=== PATIENT | male | born 1950 | race Caucasian/White ===

== ENCOUNTER 2018-02-21 17:00 | Emergency (ER) | payer BC, OTHER ==
[2018-02-21 17:11] VITALS: BP 114/40; PULSE 63; TEMP 97.2; BMI 27.0
--- NOTE | 2018-02-21 17:14 | PDOC ---
Rapid Medical Evaluation Chief Complaint: Cold Symptoms Time Seen by Provider: 02/21/18 17:13 Medical Evaluation: Allergies Allergy/AdvReac Type Severity Reaction Status Date / Time No Known Allergies Allergy Verified 02/21/18 17:05 Vital Signs Temp Pulse Resp BP Pulse Ox 97.2 F L 63 16 114/40 97 02/21/18 17:06 02/21/18 17:06 02/21/18 17:06 02/21/18 17:06 02/21/18 17:06 02/21/18 17:13 The patient presents with a chief complaint of: cold symptoms I have performed a brief in-person evaluation of this patient. Pertinent physical exam findings: vss, I have ordered the following: provider to determine The patient will proceed to the ED for further evaluation. Discharge Disposition - Referrals Referrals: Christoph Recio MD [Primary Care Provider] - - Patient Instructions - Post Discharge Activity
--- NOTE | 2018-02-21 17:51 | PDOC ---
History of Present Illness - General Chief Complaint: Cold Symptoms Stated Complaint: COLD CONGESTION, BREATHING PROBLEMS Time Seen by Provider: 02/21/18 17:13 History Source: Patient Exam Limitations: No Limitations - History of Present Illness Initial Comments: 02/21/18 18:33 This is a 67-year-old male with past medical history of hypertension CHF status post AICD presents with 10 days of upper respiratory type symptoms. Reports maxillary sinus tenderness, moist minimally productive cough, sore throat and fevers for the last 10 days. Patient was evaluated in urgent care clinic at 28 taking Augmentin and Robitussin with codeine for his symptoms. Patient denies any chest pain, shortness of breath, decreasing exercise tolerance, abdominal bloating, swelling, inability to walk up inclines or stairs. Past History - Past Medical History Allergies/Adverse Reactions: Allergies Allergy/AdvReac Type Severity Reaction Status Date / Time No Known Allergies Allergy Verified 02/21/18 17:05 Home Medications: Ambulatory Orders Apixaban [Eliquis] 5 mg PO BID 05/19/15 Aspirin [Ecotrin] 81 mg PO DAILY 05/19/15 Carvedilol 25 mg PO BID 05/19/15 Finasteride 5 mg PO DAILY 05/19/15 Olmesartan/Hydrochlorothiazide [Benicar Hct 40-12.5 mg Tablet] 1 each PO DAILY 05/19/15 Simvastatin [Zocor -] 40 mg PO HS 05/19/15 Tamsulosin HCl 0.4 mg PO DAILY 05/19/15 Allopurinol 300 mg PO DAILY 08/28/15 Cholecalciferol (Vitamin D3) [Vitamin D] 5,000 unit PO DAILY 08/28/15 Sildenafil Citrate [Viagra] 100 mg PO ASDIR 08/28/15 Oxycodone HCl/Acetaminophen [Percocet 5-325 mg Tablet] 1 tab PO Q4H PRN #20 tablet MDD 6 07/22/16 Anemia: No Asthma: No Cancer: No Cardiac Disorders: Yes (CAD with stent, afib, pace maker, defib) CVA: No COPD: No CHF: No Dementia: No Diabetes: No GI Disorders: No Disorders: No HTN: Yes Hypercholesterolemia: Yes Liver Disease: No Seizures: No Thyroid Disease: No - Surgical History Abdominal Surgery: Yes (Right Inguinal Hernia Repair) Appendectomy: No Cardiac Surgery: Yes (CARDIAC STENTS) Cholecystectomy: No Lung Surgery: No Neurologic Surgery: No Orthopedic Surgery: Yes (Left Hip Replacement 2014) - Immunization History Immunization Up to Date: Yes - Suicide/Smoking/Psychosocial Hx Smoking Status: No Smoking History: Never smoked Number of Cigarettes Smoked Daily: 0 Hx Alcohol Use: No Drug/Substance Use Hx: No Substance Use Type: None Hx Substance Use Treatment: No Respiratory Specific PMHX - Complaint Specific PMHX Pneumonia: No Review of Systems - Review of Systems Able to Perform ROS?: Yes Is the patient limited Irish proficient: No Constitutional: No: Symptoms Reported HEENTM: Yes: See HPI Respiratory: Yes: See HPI Cardiac (ROS): No: Symptoms Reported ABD/GI: No: Symptoms Reported : No: Symptoms Reported Musculoskeletal: No: Symptoms Reported Integumentary: No: Symptoms Reported Neurological: No: Symptoms reported Endocrine: No: Symptoms Reported Hematologic/Lymphatic: No: Symptoms Reported *Physical Exam - Vital Signs Last Vital Signs Temp Pulse Resp BP Pulse Ox 97.2 F L 63 16 114/40 97 02/21/18 17:06 02/21/18 17:06 02/21/18 17:06 02/21/18 17:06 02/21/18 17:06 - Physical Exam General Appearance: Yes: Appropriately Dressed. No: Apparent Distress HEENT: positive: TMs Normal, Pharynx Normal, Nasal Congestion, Rhinorrhea. negative: Pharyngeal Erythema, Tonsillar Exudate, Tonsillar Erythema, Sinus Tenderness Neck: positive: Trachea midline, Supple Respiratory/Chest: positive: Lungs Clear, Normal Breath Sounds. negative: Respiratory Distress, Accessory Muscle Use Cardiovascular: positive: Regular Rhythm, Regular Rate, S1, S2. negative: Edema , Murmur Gastrointestinal/Abdominal: positive: Normal Bowel Sounds, Soft. negative: Tender Musculoskeletal: positive: Normal Inspection. negative: CVA Tenderness Extremity: positive: Normal Inspection Integumentary: positive: Normal Color, Dry, Warm Neurologic: positive: Alert, Normal Response, Motor Strength 5/5 Medical Decision Making - Medical Decision Making 02/21/18 18:30 A/P: 67-year-old male past medical history of hypertension, CHF status post AICD with 10 days of upper respiratory symptoms TMs clear. External auditory canals clear and free of erythema or exudates bilaterally. Palpable sinus tenderness to the maxillary sinuses. His congestion noted Oropharynx clear without erythema or exudate. Respirations even and unlabored. Lungs clear to auscultation bilaterally. RRR. S1 and S2 present. No murmur, rub or gallop Patient with upper respiratory infection versus bronchitis Patient has previously been seen in urgent care and was placed on Augmentin 3 days ago. Patient states minimal relief of symptoms therefore I will continue patient on his current regimen of amoxicillin and Robitussin with codeine. Patient's eye surgery secured an appointment with his PMD on 03/03. Patient instructed to follow up his primary doctor attack appointment *DC/Admit/Observation/Transfer Diagnosis at time of Disposition: Bronchitis - Discharge Dispostion Disposition: HOME Condition at time of disposition: Stable Admit: No - Referrals Referrals: Christoph Recio MD [Primary Care Provider] - - Patient Instructions Printed Discharge Instructions: DI for Acute Bronchitis Additional Instructions: Steamy showers/seem to face break up mucus Avoid contact with others until cough resolves Lots of handwashing and good hygiene Continue [id number] medications for symptomatic relief Tylenol or Motrin for fever and pain Continue Augmentin as previously prescribed Followup with private physician in one to 2 days as needed Return to emergency department for worsened symptoms, fevers, dehydration - Post Discharge Activity Forms/Work/School Notes: Back to Work
== END 2018-02-21 17:59 | disposition home or self-care (01) ==
LOC: JERFT 17:00
DX: J20.9 Acute bronchitis, unspecified (principal); I25.10 Atherosclerotic heart disease of native coronary artery without angina pectoris; I11.0 Hypertensive heart disease with heart failure; Z95.5 Presence of coronary angioplasty implant and graft; Z95.810 Presence of automatic (implantable) cardiac defibrillator; Z96.642 Presence of left artificial hip joint; I48.91 Unspecified atrial fibrillation; Z79.01 Long term (current) use of anticoagulants; Z79.82 Long term (current) use of aspirin
CPT/HCPCS: 99281-25

== ENCOUNTER 2019-01-05 07:56 | Inpatient (IN) | payer OTHER, BC ==
--- NOTE | 2019-01-05 08:23 | PDOC ---
History of Present Illness - General History Source: Patient, Old Records Exam Limitations: No Limitations - History of Present Illness Initial Comments: HPI: 68 y/o male presenting to [facility] ER complaining of progressive SOB and cough over the past several days. Pt states he is coughing up clear phlegm. Denies gree, yellow, or reddish sputum production. Coughing is worse when lying flat at night. Endorses waking up SOB throughout the night. SOB is also worse when walking up stairs. He is a h/o CHF with AICD placement. Denies feeling a defibrillator shock. 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 Last visit was three weeks ago. Reports normal exam. PCP: Dr. Recio Medical Hx: - Hypertension - CHF s/p AICD - HLD <Tien Justice - Last Filed: 01/05/19 11:54> <Debbie Avalos - Last Filed: 01/05/19 12:26> - General Chief Complaint: Shortness of Breath Stated Complaint: DIFF BREATHING Time Seen by Provider: 01/05/19 08:23 Past History - Past Medical History Anemia: No Asthma: No Cancer: No Cardiac Disorders: Yes (CAD with stent, afib, pace maker, defib) CVA: No COPD: No CHF: No Dementia: No Diabetes: No GI Disorders: No Disorders: No HTN: Yes Hypercholesterolemia: Yes Liver Disease: No Seizures: No Thyroid Disease: No - Surgical History Abdominal Surgery: Yes (Right Inguinal Hernia Repair) Appendectomy: No Cardiac Surgery: Yes (CARDIAC STENTS) Cholecystectomy: No Lung Surgery: No Neurologic Surgery: No Orthopedic Surgery: Yes (Left Hip Replacement 2013) - Immunization History Immunization Up to Date: Yes - Suicide/Smoking/Psychosocial Hx Smoking Status: No Smoking History: Never smoked Have you smoked in the past 12 months: No Number of Cigarettes Smoked Daily: 0 Information on smoking cessation initiated: No Hx Alcohol Use: No Drug/Substance Use Hx: No Substance Use Type: None Hx Substance Use Treatment: No <Tien Justice - Last Filed: 01/05/19 11:54> <Debbie Avalos - Last Filed: 01/05/19 12:26> - Past Medical History Allergies/Adverse Reactions: Allergies Allergy/AdvReac Type Severity Reaction Status Date / Time No Known Allergies Allergy Verified 01/05/19 08:13 Home Medications: Ambulatory Orders Apixaban [Eliquis] 5 mg PO BID 05/19/15 Aspirin [Ecotrin] 81 mg PO DAILY 05/19/15 Carvedilol 25 mg PO BID 05/19/15 Finasteride 5 mg PO DAILY 05/19/15 Simvastatin [Zocor -] 40 mg PO HS 05/19/15 Allopurinol 400 mg PO DAILY 08/28/15 Furosemide [Lasix -] 40 mg PO DAILY 01/05/19 Spironolactone [Aldactone] 25 mg PO DAILY 01/05/19 Review of Systems - Review of Systems Able to Perform ROS?: Yes Comments:: In addition to that documented in the HPI above, the additional ROS was obtained : Constitutional: Denies fevers or chills Eyes: Denies vision changes ENMT: Denies sore throat CV: Denies chest pain Resp: Per HPI GI: Denies vomiting or diarrhea : Denies painful urination MSK: Denies recent trauma Skin: Denies new rashes Neuro: Denies new numbness or tingling or weakness Endocrine: Denies polyuria Heme: Denies bleeding or bruising <Tien Justice - Last Filed: 01/05/19 11:54> *Physical Exam - Vital Signs Last Vital Signs Temp Pulse Resp BP Pulse Ox 98.2 F 93 H 17 138/81 94 L 01/05/19 08:13 01/05/19 08:13 01/05/19 08:13 01/05/19 08:13 01/05/19 08:13 - Physical Exam Comments: Constitutional: Well-developed, well-nourished, non-toxic adult male in no acute distress or obvious discomfort. Found sitting upright on edge of hospital bed. Alert and oriented x4. Answered all questions appropriately and completely. Speech was non-labored, non-pressured. Head: Normocephalic. No obvious external signs of trauma. Eyes: Sclerae white. Conjunctiva moist and not injected. Ears: Hearing grossly intact. Nose: No nasal discharge. Throat: Oral cavity and pharynx normal. No inflammation, swelling, exudate, or lesions. Neck: Supple, trachea is midline. Cardiovascular/Chest: Tachycardic rate and regular rhythm. No murmur, rubs, clicks, or gallops. Peripheral pulses: radial pulses full. Hardware in left upper anterior chest wall. Respiratory: Breathing unlabored. Equal chest rise and fall. Clear to auscultation bilaterally. No stridor, no wheezing, no rhonchi. Gastrointestinal: abdomen is soft, non-tender, non-distended. Neuro: Alert and oriented. Moving all four extremities spontaneously. Skin: Warm, dry, and intact. Psych: Affect: appropriate. Mood: normal. <Tien Justice - Last Filed: 01/05/19 11:54> - Vital Signs Last Vital Signs Temp Pulse Resp BP Pulse Ox 98.2 F 93 H 17 138/81 94 L 01/05/19 08:13 01/05/19 08:13 01/05/19 08:13 01/05/19 08:13 01/05/19 08:13 <Debbie Avalos - Last Filed: 01/05/19 12:26> Moderate Sedation - Procedure Monitoring Vital Signs: Procedure Monitoring Vital Signs Temperature 98.2 F 01/05/19 08:13 Pulse Rate 93 H 01/05/19 08:13 Respiratory Rate 17 01/05/19 08:13 Blood Pressure 138/81 01/05/19 08:13 O2 Sat by Pulse Oximetry (%) 94 L 01/05/19 08:13 <Tien Justice - Last Filed: 01/05/19 11:54> - Procedure Monitoring Vital Signs: Procedure Monitoring Vital Signs Temperature 98.2 F 01/05/19 08:13 Pulse Rate 93 H 01/05/19 08:13 Respiratory Rate 17 01/05/19 08:13 Blood Pressure 138/81 01/05/19 08:13 O2 Sat by Pulse Oximetry (%) 94 L 01/05/19 08:13 <Debbie Avalos - Last Filed: 01/05/19 12:26> ED Treatment Course - LABORATORY CBC & Chemistry Diagram: 01/05/19 10:30 01/05/19 10:30 <Tien Justice - Last Filed: 01/05/19 11:54> - LABORATORY CBC & Chemistry Diagram: 01/05/19 10:30 01/05/19 10:30 - ADDITIONAL ORDERS Additional order review: Laboratory Results 01/05/19 10:30 Sodium 139 Potassium 3.5 Chloride 102 Carbon Dioxide 30 Anion Gap 7 L BUN 23 H Creatinine 1.2 Creat Clearance w eGFR 59.86 Random Glucose 105 Calcium 8.1 L Troponin I 0.06 H B-Natriuretic Peptide 5640.4 H 01/05/19 10:30 RBC 4.38 MCV 93.9 MCHC 34.1 RDW 15.5 MPV 9.4 Neutrophils % 79.6 Lymphocytes % 5.8 L D Monocytes % 13.5 H Eosinophils % 0.6 Basophils % 0.5 <Debbie Avalos - Last Filed: 01/05/19 12:26> *DC/Admit/Observation/Transfer - Discharge Dispostion Decision to Admit order: Yes <Tien Justice - Last Filed: 01/05/19 11:54> - Discharge Dispostion Decision to Admit order: Yes Decision to Admit order Date/Time: 01/05/19 12:26 <Debbie Avalos - Last Filed: 01/05/19 12:26> Diagnosis at time of Disposition: NSTEMI (non-ST elevated myocardial infarction), Shortness of breath, Elevated troponin - Discharge Dispostion Condition at time of disposition: Stable - Referrals Referrals: Christoph Recio MD [Primary Care Provider] - - Patient Instructions - Post Discharge Activity
--- NOTE | 2019-01-05 10:21 | PDOC ---
Attending Attestation - Resident Resident Name: Tien - ED Attending Attestation I have performed the following: I have examined & evaluated the patient, The case was reviewed & discussed with the resident, I agree w/resident's findings & plan - HPI HPI: 01/05/19 12:26 68 YOM with h/o AF on Eliquis, CHF(LV systolic dysfunction with ef=37%), CAD s/ p PCI stents, hypertension, dyslipidemia,BPH presenting with dyspnea with mild exertion and now at rest, associated with mildly productive cough x several days.. 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 Last eval ~3 weeks ago, normal visit; at that time he was mildly SOB, which he attributed to viral illness at the time.. Last echo ~ several months ago, unchanged per his report - Physicial Exam PE: 01/05/19 10:58 NAD, thin appearing elderly gentleman, PERRL, EOMI, nl conjunctiva, anicteric; neck supple. lungs clear, RRR, +left chest wall PPM. abdomen soft nontender. MUKHERJEE x4, no focal neuro deficits. No peripheral edema. normal color for ethnicity , WWP. no calf tenderness - Medical Decision Making 01/05/19 10:59 See HPI for details DDx SOB: ACS, arrhythmia, angina, PE, CHF, pulmonary edema, pleurisy, pneumonia , viral syndrome. effusion. anemia, electrolyte/metabolic derangements. Considered but clinically doubt based on HPI and PE: PE Vital signs reviewed, wnl. heart rate normal, SpO2 borderline 94% on RA, but no distress. Prior notes reviewed, including admissions, discharges and consultations. prior echo with poor EF <20%, dilated LV, severe global hypokinesis; normal RV size, mildly elevated pressures. laboratory results and imaging reviewed, basic labs and lytes wnl CXR_clear, PPM in place Cardiac panel +troponin 0.06, priors were all neg; BNP elevated ~5000, but lower than prior. with unremarkable CXR, so doubt CHF exac/pulmononary edema EKG V-paced pattern, no interval abnormalities, wide QRS, LBBB appearance 2/2 PPM, ST and T wave segments and morphology normal. Nonspecific T wave abnormalities - some limitation due to artifact. ED course: ASA. most likely NSTEMI with significant cardiac history, prior stents and CHF with systolic dysfunction that increases MACE risk and possibility of unstable angina. Dr Capellan inpatient consult. admit for NSTEMI, serial trop/EKG and monitoring tech, with atypical anginal sx. pt made aware of impression and plan and management. 01/05/19 12:26 Heart Score/ECG Review - ECG Impressions Normal ECG: No Comment:: 01/05/19 11:02 EKG V-paced pattern, no interval abnormalities, wide QRS, LBBB appearance 2/2 PPM, ST and T wave segments and morphology normal. Nonspecific T wave abnormalities - some limitation due to artifact.
[2019-01-05 11:03] LABS: BASO % 0.5 % (0-2.0); EOS % 0.6 % (0-4.5); HEMATOCRIT 41.1 % (35.4-49); LYMPH % 5.8 % (8-40); MCHC 34.1 g/dl (32.0-35.9); MEAN CELL VOLUME 93.9 fl (80-96); MEAN PLT VOLUME 9.4 fl (7.5-11.1); MONO % 13.5 % (3.8-10.2); NEUT % 79.6 % (42.8-82.8); PLATELET COUNT 92 K/MM3 (134-434); RBC 4.38 M/mm3 (4.00-5.60); RDW 15.5 % (11.9-15.9); WHITE BLOOD COUNT 3.8 K/mm3 (4.0-10.0)
[2019-01-05 11:14] LABS: ANION GAP 7 MMOL/L (8-16); BLOOD UREA NITROGEN 23 mg/dL (7-18); CALCIUM 8.1 mg/dL (8.5-10.1); CHLORIDE 102 mmol/L (98-107); CO2 30 mmol/L (21-32); CREATININE 1.2 mg/dL (0.55-1.3); GLUCOSE,RANDOM 105 mg/dL (74-106); N-TERMINAL BNP 5640.4 pg/ml (5-125); POTASSIUM 3.5 mmol/L (3.5-5.1); SODIUM 139 mmol/L (136-145)
[2019-01-05] MEDS ORDERED: ASPIRIN 81 MG CHEWABLE TABLETS PO ONE (11:47)
[2019-01-05] MEDS ORDERED: ASPIRIN 81 MG CHEWABLE TABLETS ONE (11:52)
--- NOTE | 2019-01-05 13:10 | PN ---
Teaching Attending Note Name of Resident: Anselmo Burgess ATTENDING PHYSICIAN STATEMENT I saw and evaluated the patient. I reviewed the resident's note and discussed the case with the resident. I agree with the resident's findings and plan as documented with exceptions below. SUBJECTIVE: 68 yom with PMHx of CAD s/p PCI, LV systolic dysfunction (Last EF 15-20% in 2014 ), s/p PPM/AICD (3-4 years ago), Persistent Atrial fibrillation on NOAC, HTN, HLD comes with 3 weeks of progressive exertional dyspnea and orthopnea. He reports URI like illness 3 weeks ago, when symptoms started, was seen by Dr. Nguyen then, attributed to his viral illness, reportedly negative w/u in the office. However, has been having progressive shortness of breath and fatigue, with minimal activity or fewer flights of stairs. So came to ED today. Positive for cough with yellowish sputum. Denies any chest pain or pressure, palpitations, dizziness, fevers, chills, ICD shock. Has had exertional dyspnea for years but has been worse for last 3 weeks. Works in elevators/crowded places, unsure of sick contact. Unsure when had his last stress test or 2D echo. 12 point ROS done, neg except above. OBJECTIVE: Vital Signs Period Temp Pulse Resp BP Sys/[place] Pulse Ox Last 24 Hr 98.2 F 93 17 138/81 94 Intake & Output 01/02/19 01/03/19 01/04/19 01/05/19 23:59 23:59 23:59 23:59 Weight 204 lb GENERAL: Awake, alert, and fully oriented, in no acute distress. HEAD: Normal with no signs of trauma. EYES: Pupils equal, round and reactive to light, extraocular movements intact, sclera anicteric, conjunctiva clear. No lid lag. EARS, NOSE, THROAT: Ears normal, nares patent, oropharynx clear without exudates. Moist mucous membranes. NECK: Soft, supple, no JVD visualized LUNGS: Breath sounds equal, clear to auscultation bilaterally. No wheezes, and no crackles. No accessory muscle use. HEART: S1S2 regular, tachycardic ABDOMEN: Soft, nontender, not distended, normoactive bowel sounds, no guarding, no rebound, no masses. No hepatomegaly or splenomegaly appreciated. MUSCULOSKELETAL: Normal range of motion at all joints. No bony deformities or tenderness. No CVA tenderness. UPPER EXTREMITIES: 2+ pulses, warm, well-perfused. No cyanosis. No clubbing. No peripheral edema. LOWER EXTREMITIES: 2+ pulses, warm, well-perfused. No calf tenderness. No peripheral edema. Varicosities NEUROLOGICAL: AAOx3, power 5/5, sensation intact and symmetric to light touch, facial symmetry, cranial nerves II-XII grossly intact PSYCHIATRIC: Cooperative. Good eye contact. Appropriate mood and affect. SKIN: Warm, dry, normal turgor, no rashes or lesions noted, normal capillary refill. Home Medications Medication Instructions Recorded Apixaban [Eliquis] 5 mg PO BID 05/19/15 Aspirin [Ecotrin] 81 mg PO DAILY 05/19/15 Carvedilol 25 mg PO BID 05/19/15 Finasteride 5 mg PO DAILY 05/19/15 Simvastatin [Zocor -] 40 mg PO HS 05/19/15 Allopurinol 400 mg PO DAILY 08/28/15 Furosemide [Lasix -] 20 mg PO DAILY 01/05/19 Spironolactone [Aldactone] 25 mg PO DAILY 01/05/19 Laboratory Results - last 24 hr 01/05/19 01/05/19 01/05/19 10:30 10:30 12:40 WBC 3.8 L RBC 4.38 Hgb 14.0 Hct 41.1 MCV 93.9 MCH 32.0 MCHC 34.1 RDW 15.5 Plt Count 92 L MPV 9.4 Absolute Neuts (auto) 3.0 Neutrophils % 79.6 Lymphocytes % 5.8 L D Monocytes % 13.5 H Eosinophils % 0.6 Basophils % 0.5 Nucleated RBC % 0 Sodium 139 Potassium 3.5 Chloride 102 Carbon Dioxide 30 Anion Gap 7 L BUN 23 H Creatinine 1.2 Creat Clearance w eGFR 59.86 Random Glucose 105 Calcium 8.1 L Troponin I 0.06 H B-Natriuretic Peptide 5640.4 H Influenza A (Rapid) Negative Influenza B (Rapid) Negative CXR image and results reviewed EKG Vpacing, HR 100s ASSESSMENT AND PLAN: 68 yom with PMHx of CAD s/p PCI, LV systolic dysfunction (Last EF 15-20% in 2014 ), s/p PPM/AICD (3-4 years ago), Persistent Atrial fibrillation on NOAC, HTN, HLD comes with 3 weeks of progressive exertional dyspnea and orthopnea. -Exertional dyspnea/orthopnea, from ?recent URI illness with bronchitis, r/o arrhythmia/tachycardia vs anginal equivalent symptoms,clinical presentation not convincing for CHF exacerbation -Elevated troponin, demand type II NSTEMi vs ACS -Severe LV systolic dysfunction (Last EF 15-20% in 2014) -CAD s/p PCI -s/p PPM/AICD -CKD stage II-III -persistent atrial fibrillation on NOAC -HTN -HLD Plan: Cardiology consult Dr. Nguyen, retrieve prior records. Telemetry, cycle troponin. Exertional symptoms. Stress test/2Decho per cardiology pending troponin trend and recent records. Continue ASA/coreg/statin/aldactone/eliquis. PPM/ICD interrogation to assess for tachycardia/arrhythmia Continue home dose of lasix. Influenza swab neg. Supportive care. DVTPPX heparin Code status: Full code (discussed with patient, wants his Silvia to be his surrogate decision maker) Dispo pending clinical course, cardiology input and need for additional work up. Total admit time 55 min.
[2019-01-05] MEDS ORDERED: FUROSEMIDE 20 MG TABLET (FP) PO SCH (13:30)
--- NOTE | 2019-01-05 13:36 | HP ---
CHIEF COMPLAINT: sob PCP: HISTORY OF PRESENT ILLNESS: 68 y/o male significant pmh of chf, afib, htn, hld, afib with icd came to hospital with a cc of increase in sob. Pt states that he had flu like symptoms 3 week ago and since then his sob is getting worse. Now he is getting sob in doing daily activities. Still sleep with 2 pillows. Denies sob on rest. Denies chest pain, pressure, palpitations, shock from his icd. Denies fever and chills. Denies h/o copd. Denies lightheadedness, dizziness,. Denies nausea, vomiting, and change micturation. Denies swelling in legs and change in weight. Pt also states that he had seen that dale 3 week ago and was started on entresto. Also states he got echo done around 3 months ago. pt also states that he also got his icd interogated last month and it was normal. IN ER ekg was done which shows ventricular pace rhythm pt was given aspirin in er, trop 0.06 Recent Travel: PAST MEDICAL HISTORY:as above PAST SURGICAL HISTORY: Social History: exposed to smoke for 30 year s Family History:ok Allergies No Known Allergies Allergy (Verified 01/05/19 08:13) HOME MEDICATIONS: Home Medications Medication Instructions Recorded Apixaban [Eliquis] 5 mg PO BID 05/19/15 Aspirin [Ecotrin] 81 mg PO DAILY 05/19/15 Carvedilol 25 mg PO BID 05/19/15 Finasteride 5 mg PO DAILY 05/19/15 Simvastatin [Zocor -] 40 mg PO HS 05/19/15 Allopurinol 400 mg PO DAILY 08/28/15 Furosemide [Lasix -] 20 mg PO DAILY 01/05/19 Spironolactone [Aldactone] 25 mg PO DAILY 01/05/19 REVIEW OF SYSTEMS CONSTITUTIONAL: Absent: fever, chills, diaphoresis, generalized weakness, malaise, loss of appetite, weight change HEENT: Absent: rhinorrhea, nasal congestion, throat pain, throat swelling, difficulty swallowing, mouth swelling, ear pain, eye pain, visual changes CARDIOVASCULAR: Absent: chest pain, syncope, palpitations, irregular heart rate, lightheadedness , peripheral edema RESPIRATORY: Absent: cough, shortness of breath, dyspnea with exertion, orthopnea, wheezing, stridor, hemoptysis GASTROINTESTINAL: Absent: abdominal pain, abdominal distension, nausea, vomiting, diarrhea, constipation, melena, hematochezia GENITOURINARY: Absent: dysuria, frequency, urgency, hesitancy, hematuria, flank pain, genital pain MUSCULOSKELETAL: Absent: myalgia, arthralgia, joint swelling, back pain, neck pain SKIN: Absent: rash, itching, pallor HEMATOLOGIC/IMMUNOLOGIC: Absent: easy bleeding, easy bruising, lymphadenopathy, frequent infections ENDOCRINE: Absent: unexplained weight gain, unexplained weight loss, heat intolerance, cold intolerance NEUROLOGIC: Absent: headache, focal weakness or paresthesias, dizziness, unsteady gait, seizure, mental status changes, bladder or bowel incontinence PSYCHIATRIC: Absent: anxiety, depression, suicidal or homicidal ideation, hallucinations. PHYSICAL EXAMINATION Vital Signs - 24 hr 01/05/19 08:13 Temperature 98.2 F Pulse Rate 93 H Respiratory 17 Rate Blood Pressure 138/81 O2 Sat by Pulse 94 L Oximetry (%) GENERAL: Awake, alert, and fully oriented, in no acute distress. HEAD: Normal with no signs of trauma. EYES: Pupils equal, round and reactive to light, EARS, NOSE, THROAT: Ears normal, nares patent, oropharynx clear without exudates. Moist mucous membranes. NECK: Normal range of motion, supple without lymphadenopathy, JVD, or masses. LUNGS: Breath sounds equal, clear to auscultation bilaterally. No wheezes, and no crackles. No accessory muscle use. HEART: Regular rate and rhythm, normal S1 and S2 normal ABDOMEN: Soft, nontender, not distended, normoactive bowel sounds, no guarding, no rebound, no masses. MUSCULOSKELETAL: Normal range of motion at all joints. No bony deformities or tenderness. No CVA tenderness. UPPER EXTREMITIES: 2+ pulses, warm, well-perfused. No cyanosis. No clubbing. No peripheral edema. LOWER EXTREMITIES: 2+ pulses, warm, well-perfused. No calf tenderness. No peripheral edema. NEUROLOGICAL: Normal speech. Normal gait. PSYCHIATRIC: Cooperative. Good eye contact. SKIN: Warm, dry, normal turgor, Laboratory Results - last 24 hr 01/05/19 01/05/19 01/05/19 10:30 10:30 12:40 WBC 3.8 L RBC 4.38 Hgb 14.0 Hct 41.1 MCV 93.9 MCH 32.0 MCHC 34.1 RDW 15.5 Plt Count 92 L MPV 9.4 Absolute Neuts (auto) 3.0 Neutrophils % 79.6 Lymphocytes % 5.8 L D Monocytes % 13.5 H Eosinophils % 0.6 Basophils % 0.5 Nucleated RBC % 0 Sodium 139 Potassium 3.5 Chloride 102 Carbon Dioxide 30 Anion Gap 7 L BUN 23 H Creatinine 1.2 Creat Clearance w eGFR 59.86 Random Glucose 105 Calcium 8.1 L Troponin I 0.06 H B-Natriuretic Peptide 5640.4 H Influenza A (Rapid) Negative Influenza B (Rapid) Negative Current Medications Generic Name Dose Route Start Last Admin Trade Name Freq PRN Reason Stop Dose Admin Allopurinol 400 mg 01/06/19 10:00 Zyloprim - PO DAILY ALEX[facility]ER Apixaban 5 mg 01/05/19 22:00 Eliquis - PO BID ALEX[facility]ER Aspirin 81 mg 01/06/19 10:00 Ecotrin - PO DAILY A[facility]ER Atorvastatin Calcium 40 mg 01/05/19 22:00 Lipitor - PO HS ALEX[facility]ER Carvedilol 25 mg 01/05/19 22:00 Coreg - PO BID ALEX[facility]ER Finasteride 5 mg 01/06/19 10:00 Proscar - PO DAILY A[facility]ER Furosemide 40 mg 01/05/19 14:45 Lasix Injection - IVPUSH 01/05/19 14:46 ONCE ONE Spironolactone 25 mg 01/06/19 10:00 Aldactone - PO DAILY ALEXANDER 05/31/2018 Lexiscan Myoview: Moderate-large size inferior, inferolateral ischemia, anterobasal mild ischemia, dilated LV with sveere global HK 27% 12/09/2017 Echo: Dilated LV with severe decreased LVEF 25-30%, severe LAE, mild ANTONINO, normal RV size with mild-mod decreased LV systolic function, defibrillator lead seen mod MR, TR RVSP 37.9 mmHg 1. Acute on chronic LV systolic failure LVEF 25-30% s/p SQL SSRS DEVELOPER-D (Sinan Sci) monitor vitals monitor intake/ output daily weight low salt diet iv lasix 40 push today cardiac monitoring echo cardiology consult. continue spironolactone monitor renal function and electrolytes continue coreg icd enterogation 2. Persistent atrial fibrillation [id number] on NOAC on coreg 25 bid 3. CAD s/p PCI (stent), angina pectoris continue aspirin 4. Hypertension/HCVD continue home medications 5. Hyperlipidemia lipitor 40 fluid: orally allowed electrolyte: repeat in am nutrition: low salt diet dvt pro on eliquis gi pro not required dispo tele admission Visit type - Emergency Visit Emergency Visit: Yes ED Registration Date: 01/05/19 Care time: The patient presented to the Emergency Department on the above date and was hospitalized for further evaluation of their emergent condition. - New Patient This patient is new to me today: Yes Date on this admission: 01/05/19 - Critical Care Critical Care patient: No
--- NOTE | 2019-01-05 13:46 | CON.CARD ---
Consult Consult Specialty:: Cardiology Referred by:: Hospitalist Medicine Reason for Consultation:: CHF exacerbation - History of Present Illness Chief Complaint: GARCIA History of Present Illness: 68-year-old male with h/o CAD s/p CAROLEE LAD 01/17/2004, angina pectoris, LV systolic dysfunction (LVEF 25-30%) with h/o failure, persistent atrial fibrillation on NOAC, HTN, hyperlipidemia last office visit 12/30/2018 presents with several days of progressive shortness of breath on exertion, orthopnea, nonproductive cough or wheeze. Reports compliance with medications and diet, denies NSAID use. - History Source History Provided By: Patient Limitations to Obtaining History: No Limitations - Past Medical History Cardio/Vascular: Yes: AFIB, CAD, CHF, Hyperlipdemia Renal/: Yes: BPH - Past Surgical History Past Surgical History: Yes: Joint Replacement (left hip), Permanent Pacemaker, Stent - Alcohol/Substance Use Hx Alcohol Use: No - Smoking History Smoking history: Never smoked Have you smoked in the past 12 months: No Aproximately how many cigarettes per day: 0 Home Medications - Allergies Allergies/Adverse Reactions: Allergies Allergy/AdvReac Type Severity Reaction Status Date / Time No Known Allergies Allergy Verified 01/05/19 08:13 - Home Medications Home Medications: Ambulatory Orders Apixaban [Eliquis] 5 mg PO BID 05/19/15 Aspirin [Ecotrin] 81 mg PO DAILY 05/19/15 Carvedilol 25 mg PO BID 05/19/15 Finasteride 5 mg PO DAILY 05/19/15 Simvastatin [Zocor -] 40 mg PO HS 05/19/15 Allopurinol 400 mg PO DAILY 08/28/15 Furosemide [Lasix -] 20 mg PO DAILY 01/05/19 Spironolactone [Aldactone] 25 mg PO DAILY 01/05/19 Vital Signs: Vital Signs Temperature 98.2 F 01/05/19 08:13 Pulse Rate 93 H 01/05/19 08:13 Respiratory Rate 17 01/05/19 08:13 Blood Pressure 138/81 01/05/19 08:13 O2 Sat by Pulse Oximetry (%) 94 L 01/05/19 08:13 Constitutional: Yes: No Distress, Calm Neck: Yes: Supple Respiratory: Yes: Regular, Diminished Gastrointestinal: Yes: Normal Bowel Sounds, Soft Cardiovascular: Yes: Pulse Irregular JVD: No Carotid Bruit: No Heart Sounds: Yes: S1, S2 Murmur: Yes: Systolic Murmur, Grade 1 Edema: No - Other Data Labs, Other Data: CBC, BMP 01/05/19 10:30 01/05/19 10:30 Troponin, BNP 01/05/19 10:30 Troponin I 0.06 H B-Natriuretic Peptide 5640.4 H Troponin, BNP 01/05/19 10:30 Troponin I 0.06 H B-Natriuretic Peptide 5640.4 H Afib Prior Cardiac Procedures: PTCA with Stent Ejection Fraction %: LVEF < 40 % Imaging - Results Chest X-ray: Report Reviewed (NAD) Problem List - Problems (1) S/P coronary artery stent placement Code(s): Z95.5 - PRESENCE OF CORONARY ANGIOPLASTY IMPLANT AND GRAFT (2) Shortness of breath Code(s): R06.02 - SHORTNESS OF BREATH (3) CAD (coronary atherosclerotic disease) Code(s): I25.10 - ATHSCL HEART DISEASE OF [place] CORONARY ARTERY W/O ANG PCTRS Qualifiers: Coronary Disease-Associated Artery/Lesion type: unspecified vessel or lesion type [place] vs. transplanted heart: [place] heart Associated angina: with unspecified angina Qualified Code(s): I25.119 - Atherosclerotic heart disease of [place] coronary artery with unspecified angina pectoris (4) Chronic atrial fibrillation Code(s): I48.2 - CHRONIC ATRIAL FIBRILLATION (5) Heart failure Code(s): I50.9 - HEART FAILURE, UNSPECIFIED (6) Hyperlipemia Code(s): E78.5 - HYPERLIPIDEMIA, UNSPECIFIED Qualifiers: Hyperlipidemia type: Pure hypercholesterolemia Assessment/Plan 05/31/2018 Lexiscan Myoview: Moderate-large size inferior, inferolateral ischemia, anterobasal mild ischemia, dilated LV with sveere global HK 27% 12/09/2017 Echo: Dilated LV with severe decreased LVEF 25-30%, severe LAE, mild ANTONINO, normal RV size with mild-mod decreased LV systolic function, defibrillator lead seen mod MR, TR RVSP 37.9 mmHg 1. Acute on chronic LV systolic failure LVEF 25-30% s/p NON DESTRUCTIVE EVALUATION MANAGER-D (Sinan Sci) 2. Persistent atrial fibrillation [id number] on NOAC 3. CAD s/p PCI (stent), subendocardial ischemia 4. Hypertension/HCVD 5. Hyperlipidemia P:1. IV diuresis with monitor diuretic response, renal fxn and electrolytes 2. Contine Eliquis 5 bid, carvedilol 25 bid, Entresto 49-51 bid, Lipitor 20 qhs , Aldactone 25 qd 3. Device interrogation to exclude rapid afib 4. Thank you for consultative opportunity
[2019-01-05] MEDS ORDERED: FUROSEMIDE 40 MG/4 ML INJECTABLE VIAL IVPUSH ONE (14:45)
[2019-01-05] MEDS ORDERED: FUROSEMIDE 40 MG/4 ML INJECTABLE VIAL ONE (15:14)
--- NOTE | 2019-01-05 15:36 | EKG ---
Test Reason : Blood Pressure : / mmHG Vent. Rate : 101 BPM Atrial Rate : 129 BPM P-R Int : 000 ms QRS Dur : 152 ms QT Int : 422 ms P-R-T Axes : 000 -57 110 degrees QTc Int : 547 ms POOR DATA QUALITY, INTERPRETATION MAY BE ADVERSELY AFFECTED Ventricular-paced rhythm Biventricular pacemaker detected ABNORMAL ECG WHEN COMPARED WITH ECG OF 05-JAN-2019 08:21, PREMATURE VENTRICULAR COMPLEXES ARE NO LONGER PRESENT Confirmed by ALMAS DICKERSON MD ([id number]) on 01/05/2019 3:35:51 PM Referred By: Confirmed By:ALMAS DICKERSON MD
--- NOTE | 2019-01-05 15:39 | EKG ---
Test Reason : Blood Pressure : / mmHG Vent. Rate : 100 BPM Atrial Rate : 089 BPM P-R Int : 000 ms QRS Dur : 152 ms QT Int : 428 ms P-R-T Axes : 000 -74 109 degrees QTc Int : 552 ms Ventricular-paced rhythm WITH OCCASIONAL PREMATURE VENTRICULAR COMPLEXES ABNORMAL ECG WHEN COMPARED WITH ECG OF 28-AUG-2015 12:06, ELECTRONIC VENTRICULAR PACEMAKER HAS REPLACED ATRIAL FIBRILLATION Confirmed by JAYLA PINTO, ALMAS ([id number]) on 01/05/2019 3:39:28 PM Referred By: Confirmed By:ALMAS DICKERSON MD
--- NOTE | 2019-01-05 16:13 | ECHO ---
Name: CHINO ADAMS Exam:Adult Echocardiogram Study Date: 01/05/2019 02:58 PM Age: 68 yrs Reason For Study: SOB CHF Height: 83 in Weight: 204 lb BSA: 2.4 m2 MMode/2D Measurements & Calculations IVSd: 0.76 cm Ao root diam: 3.0 cm LVIDd: 5.8 cm LA dimension: 4.8 cm LVIDs: 4.7 cm LVPWd: 0.89 cm EDV(Teich): 163.6 ml TAPSE: 2.1 cm ESV(Teich): 104.5 ml Doppler Measurements & Calculations MV E max molly: 130.3 cm/sec Ao V2 max: 128.0 cm/sec MV A max molly: 34.1 cm/sec Ao max P.6 mmHg MV E/A: 3.8 MV dec time: 0.19 sec LV V1 max P.54 mmHg MR max molly: 440.4 cm/sec LV V1 max: 36.6 cm/sec MR max P.8 mmHg TR max molly: 269.8 cm/sec PI end-d molly: 73.3 cm/sec TR max P.2 mmHg RVSP(TR): 39.2 mmHg Med Peak E' Molly: 4.2 cm/sec RAP systole: 10.0 mmHg Med E/e': 31.3 Lat Peak E' Molly: 6.9 cm/sec Lat E/e': 18.8 Procedure A complete two-dimensional transthoracic echocardiogram was performed (2D, M-mode, Doppler and color flow Doppler). Left Ventricle The left ventricle is normal in size. Left ventricular systolic function is severely reduced. Ejectio n Fraction = 30-35%. There is severe global hypokinesis of the left ventricle. Right Ventricle The right ventricle is normal in size and function. Atria The left atrium is moderately dilated. The right atrium is moderately dilated. Mitral Valve There is mild to moderate mitral regurgitation. Tricuspid Valve There is trace tricuspid regurgitation. Right ventricular systolic pressure is normal. Aortic Valve The aortic valve is trileaflet. No hemodynamically significant valvular aortic stenosis. No aortic regurgitation is present. Pulmonic Valve Trace pulmonic valvular regurgitation. Great Vessels The aortic root is normal size. Pericardium/Pleura There is no pericardial effusion. Interpretation Summary Left ventricular systolic function is severely reduced. There is severe global hypokinesis of the left ventricle. The right ventricle is normal in size and function. The left atrium is moderately dilated. The right atrium is moderately dilated. There is mild to moderate mitral regurgitation. There is trace tricuspid regurgitation. Trace pulmonic valvular regurgitation. MD Javid Domínguez 01/05/2019 04:12 PM
[2019-01-05] MEDS ORDERED: CARVEDILOL 25 MG TABLET (FP) PO SCH ×3 (17:42→22:00)
[2019-01-05] MEDS ORDERED: CARVEDILOL 25 MG TABLET (FP) PO ONE (17:43)
[2019-01-05] MEDS ORDERED: CARVEDILOL 12.5 MG TABLET (FP) ONE (18:03)
[2019-01-05] MEDS ORDERED: POTASSIUM CHLORIDE ORAL LIQUID 20 MEQ/15 ML PO ONE (18:59)
[2019-01-05] MEDS ORDERED: POTASSIUM CHLORIDE ORAL LIQUID 20 MEQ/15 ML ONE (19:43)
[2019-01-05] MEDS ORDERED: SACUBITRIL/VALSARTAN 49 MG-51 MG TABLET PO SCH (22:00)
[2019-01-05] MEDS ORDERED: ATORVASTATIN CA 40 MG TABLET (FP) PO SCH (22:00)
[2019-01-05] MEDS: APIXABAN 5 MG TABLET PO SCH (22:56)
[2019-01-06 04:56] VITALS: BMI 26.4
[2019-01-06 07:39] LABS: BASO % 0.5 % (0-2.0); EOS % 0.2 % (0-4.5); HEMATOCRIT 40.8 % (35.4-49); HEMOGLOBIN 13.9 GM/dL (11.7-16.9); LYMPH % 8.8 % (8-40); MCH 32.3 pg (25.7-33.7); MCHC 34.1 g/dl (32.0-35.9); MEAN CELL VOLUME 94.8 fl (80-96); MEAN PLT VOLUME 9.5 fl (7.5-11.1); NEUT % 76.5 % (42.8-82.8); PLATELET COUNT 98 K/MM3 (134-434); RDW 15.6 % (11.9-15.9); WHITE BLOOD COUNT 4.1 K/mm3 (4.0-10.0)
[2019-01-06 09:00] LABS: ALBUMIN 3.2 g/dl (3.4-5.0); ALK PHOS 122 U/L (45-117); ANION GAP 6 MMOL/L (8-16); BILIRUBIN,TOTAL 1.4 mg/dL (0.2-1); BLOOD UREA NITROGEN 25 mg/dL (7-18); CALCIUM 8.4 mg/dL (8.5-10.1); CHLORIDE 100 mmol/L (98-107); CHOLESTEROL 119 mg/dL (50-200); CO2 30 mmol/L (21-32); CREATININE 1.3 mg/dL (0.55-1.3); GLUCOSE,RANDOM 126 mg/dL (74-106); HDL CHOLESTEROL 30 mg/dL (40-60); MAGNESIUM 1.8 mg/dL (1.8-2.4); PHOSPHOROUS 3.4 mg/dL (2.5-4.9); POTASSIUM 3.8 mmol/L (3.5-5.1); SGOT/AST 30 U/L (15-37); SGPT/ALT 15 U/L (13-61); SODIUM 137 mmol/L (136-145); TOT PROT 7.6 g/dl (6.4-8.2); TRIGLYCERIDES 103 mg/dL (0-150)
[2019-01-06] MEDS ORDERED: CARVEDILOL 25 MG TABLET (FP) PO SCH (10:00)
[2019-01-06] MEDS ORDERED: FINASTERIDE 5 MG TABLET (FP) PO SCH (10:00)
[2019-01-06] MEDS ORDERED: FUROSEMIDE 40 MG/4 ML INJECTABLE VIAL IVPUSH SCH (10:00)
[2019-01-06] MEDS ORDERED: ASPIRIN COATED 81 MG TABLET.EC PO SCH (10:00)
[2019-01-06] MEDS ORDERED: ALLOPURINOL 100 MG TABLET (FP) PO SCH (10:00)
[2019-01-06] MEDS ORDERED: SACUBITRIL/VALSARTAN 49 MG-51 MG TABLET PO SCH (10:00)
[2019-01-06] MEDS ORDERED: SPIRONOLACTONE 25 MG TABLET (FP) PO SCH ×2 (10:00→10:29)
[2019-01-06] MEDS: APIXABAN 5 MG TABLET PO SCH (10:16)
--- NOTE | 2019-01-06 10:18 | PN ---
Progress Note, Physician History of Present Illness: Shortness of breath on exertion, orthopnea persists despite diuresis, HR and BP elevated. - Current Medication List Current Medications: Active Medications Allopurinol (Zyloprim -) 400 mg PO DAILY [facility] Last Admin: 01/06/19 10:16 Dose: 400 mg Apixaban (Eliquis -) 5 mg PO BID [facility] Last Admin: 01/06/19 10:16 Dose: 5 mg Aspirin (Ecotrin -) 81 mg PO DAILY [facility] Last Admin: 01/06/19 10:17 Dose: 81 mg Atorvastatin Calcium (Lipitor -) 40 mg PO HS [facility] Last Admin: 01/05/19 22:56 Dose: 40 mg Carvedilol (Coreg -) 25 mg PO BID [facility] Last Admin: 01/06/19 10:17 Dose: 25 mg Finasteride (Proscar -) 5 mg PO DAILY [facility] Last Admin: 01/06/19 10:16 Dose: 5 mg Furosemide (Lasix Injection -) 40 mg IVPUSH DAILY [facility] Sacubitril/Valsartan (Entresto 49 Mg-51 Mg Tablet) 1 tab PO BID [facility] Last Admin: 01/06/19 10:17 Dose: 1 tab Spironolactone (Aldactone -) 25 mg PO DAILY [facility] Last Admin: 01/06/19 10:17 Dose: 25 mg - Objective Vital Signs: Vital Signs Temperature 98.6 F 01/06/19 02:00 Pulse Rate 112 H 01/06/19 06:00 Respiratory Rate 20 01/06/19 06:00 Blood Pressure 150/100 01/06/19 06:00 O2 Sat by Pulse Oximetry (%) 98 01/05/19 23:00 Constitutional: Yes: No Distress, Calm, Thin Neck: Yes: Supple Cardiovascular: Yes: Tachycardia Respiratory: Yes: Regular, Diminished Gastrointestinal: Yes: Normal Bowel Sounds, Soft Edema: No Labs: CBC, BMP 01/06/19 06:40 01/06/19 06:40 - ....Imaging EKG: Report Reviewed (V-paced @ 101) Problem List - Problems (1) S/P coronary artery stent placement Code(s): Z95.5 - PRESENCE OF CORONARY ANGIOPLASTY IMPLANT AND GRAFT (2) Shortness of breath Code(s): R06.02 - SHORTNESS OF BREATH (3) CAD (coronary atherosclerotic disease) Code(s): I25.10 - ATHSCL HEART DISEASE OF [place] CORONARY ARTERY W/O ANG PCTRS Qualifiers: Coronary Disease-Associated Artery/Lesion type: unspecified vessel or lesion type [place] vs. transplanted heart: [place] heart Associated angina: with unspecified angina Qualified Code(s): I25.119 - Atherosclerotic heart disease of [place] coronary artery with unspecified angina pectoris (4) Chronic atrial fibrillation Code(s): I48.2 - CHRONIC ATRIAL FIBRILLATION (5) Heart failure Code(s): I50.9 - HEART FAILURE, UNSPECIFIED (6) Hyperlipemia Code(s): E78.5 - HYPERLIPIDEMIA, UNSPECIFIED Qualifiers: Hyperlipidemia type: Pure hypercholesterolemia Assessment/Plan 05/31/2018 Lexiscan Myoview: Moderate-large size inferior, inferolateral ischemia, anterobasal mild ischemia, dilated LV with sveere global HK 27% 01/05/2019 Echo: Severely decreased LV fxn with normal RV size and fxn, mod DANIS , mild-mod MR, tr TR, OR 12/09/2017 Echo: Dilated LV with severe decreased LVEF 25-30%, severe LAE, mild ANTONINO, normal RV size with mild-mod decreased LV systolic function, defibrillator lead seen mod MR, TR RVSP 37.9 mmHg 1. Acute on chronic LV systolic failure LVEF 25-30% s/p GEODUCK DIVER-D (Sinan Sci) 2. Persistent atrial fibrillation [id number] on NOAC 3. CAD s/p PCI (stent), subendocardial ischemia 4. Hypertension/HCVD, BP not at goal control 5. Hyperlipidemia P:1. IV diuresis with monitor diuretic response, renal fxn and electrolytes, trend trops to document peak 2. Contine Eliquis 5 bid, carvedilol 25 bid, increase Entresto 97-103 bid, Lipitor 20 qhs, and Aldactone 50 qd 3. Would add Corlanor to decrease HR as outpatient, not available on formulary.
[2019-01-06] MEDS ORDERED: SACUBITRIL/VALSARTAN 49 MG-51 MG TABLET PO ONE (11:30)
--- NOTE | 2019-01-06 12:58 | PN ---
Physical Exam: SUBJECTIVE: Patient seen and examined, breathing overall unchanged, still dyspneic with exertional, denies any chest pain or palpitations. OBJECTIVE: Vital Signs Period Temp Pulse Resp BP Sys/[place] Pulse Ox Last 24 Hr 97.7 F-98.7 F 94-120 16-22 135-158/57-107 94-98 GENERAL: The patient is awake, alert, and fully oriented, in no acute distress. HEAD: Normal with no signs of trauma. EYES: PERRL, extraocular movements intact, sclera anicteric, conjunctiva clear. No ptosis. ENT: Ears normal, nares patent, oropharynx clear without exudates, moist mucous membranes. NECK: soft, supple, no JVD visualized LUNGS: Breath sounds equal, clear to auscultation bilaterally, no wheezes, no crackles, no accessory muscle use. HEART: S1S2 irregular, tachycardic ABDOMEN: Soft, nontender, nondistended, normoactive bowel sounds, no guarding, no rebound EXTREMITIES: 2+ pulses, warm, well-perfused, no edema. PSYCH: Normal mood, normal affect. SKIN: Warm, dry, normal turgor, no rashes or lesions noted Laboratory Results - last 24 hr 01/05/19 01/05/19 01/05/19 10:30 12:40 13:27 WBC RBC Hgb Hct MCV MCH MCHC RDW Plt Count MPV Absolute Neuts (auto) Neutrophils % Lymphocytes % Monocytes % Eosinophils % Basophils % Nucleated RBC % Sodium 139 Potassium 3.5 Chloride 102 Carbon Dioxide 30 Anion Gap 7 L BUN 23 H Creatinine 1.2 Creat Clearance w eGFR 59.86 Random Glucose 105 Calcium 8.1 L Phosphorus Magnesium Total Bilirubin AST ALT Alkaline Phosphatase Creatine Kinase Creatine Kinase Index CK-MB (CK-2) Troponin I 0.06 H 0.06 H B-Natriuretic Peptide 5640.4 H Total Protein Albumin Triglycerides Cholesterol Total LDL Cholesterol HDL Cholesterol TSH 1.48 D Influenza A (Rapid) Negative Influenza B (Rapid) Negative 01/06/19 01/06/19 06:40 06:40 WBC 4.1 RBC 4.30 Hgb 13.9 Hct 40.8 MCV 94.8 MCH 32.3 MCHC 34.1 RDW 15.6 Plt Count 98 L MPV 9.5 Absolute Neuts (auto) 3.1 Neutrophils % 76.5 Lymphocytes % 8.8 D Monocytes % 14.0 H Eosinophils % 0.2 Basophils % 0.5 Nucleated RBC % 0 Sodium 137 Potassium 3.8 Chloride 100 Carbon Dioxide 30 Anion Gap 6 L BUN 25 H Creatinine 1.3 Creat Clearance w eGFR 54.57 Random Glucose 126 H Calcium 8.4 L Phosphorus 3.4 Magnesium 1.8 Total Bilirubin 1.4 H AST 30 ALT 15 Alkaline Phosphatase 122 H Creatine Kinase 318 H Creatine Kinase Index 0.4 CK-MB (CK-2) 1.5 Troponin I 0.11 H B-Natriuretic Peptide Total Protein 7.6 Albumin 3.2 L Triglycerides 103 Cholesterol 119 Total LDL Cholesterol 75 HDL Cholesterol 30 L TSH Influenza A (Rapid) Influenza B (Rapid) Active Medications Generic Name Dose Route Start Last Admin Trade Name Freq PRN Reason Stop Dose Admin Allopurinol 400 mg 01/06/19 10:00 01/06/19 10:16 Zyloprim - PO 400 mg DAILY A[facility]ANDER Administration Apixaban 5 mg 01/05/19 22:00 01/06/19 10:16 Eliquis - PO 5 mg BID [facility]ER Administration Aspirin 81 mg 01/06/19 10:00 01/06/19 10:17 Ecotrin - PO 81 mg DAILY [facility] Administration Atorvastatin Calcium 40 mg 01/05/19 22:00 01/05/19 22:56 Lipitor - PO 40 mg HS [facility] Administration Carvedilol 25 mg 01/06/19 10:00 01/06/19 10:17 Coreg - PO 25 mg BID [facility]ER Administration Finasteride 5 mg 01/06/19 10:00 01/06/19 10:16 Proscar - PO 5 mg DAILY [facility] Administration Furosemide 40 mg 01/06/19 10:00 01/06/19 11:44 Lasix Injection - IVPUSH 40 mg DAILY [facility] Administration Sacubitril/Valsartan 1 tab 01/06/19 22:00 Entresto 97 Mg-103 Mg Tablet PO BID [facility] Spironolactone 25 mg 01/06/19 18:00 Aldactone - PO 01/06/19 18:01 ONCE ONE Spironolactone 50 mg 01/06/19 10:29 Aldactone - PO DAILY [facility] 2D echo results reviewed ASSESSMENT/PLAN: 68 yom with PMHx of CAD s/p PCI, LV systolic dysfunction (Last EF 15-20% in 2014 ), s/p PPM/AICD (3-4 years ago), Persistent Atrial fibrillation on NOAC, HTN, HLD comes with 3 weeks of progressive exertional dyspnea and orthopnea. -Exertional dyspnea/orthopnea, from acute on chronic systolic HF exac vs tachycardia mediated vs recent URI with bronchitis -Elevated troponin, demand type II NSTEMI from above ,unlikely ACS -Severe LV systolic dysfunction (EF 30-35% on this admission) -CAD s/p PCI -s/p PPM/AICD -CKD stage II-III -persistent atrial fibrillation on NOAC -HTN -HLD Plan: Cardiology input appreciated. lasix 40 mg IV daily, strict I/Os, daily weights. 2D echo results reviewed Needs better HR control. Per cardiology, plan for corlanor outpatient. Trop flat. Continue ASA/coreg/statin/aldactone/eliquis. Entresto resumed. PPM/ICD interrogation noted, no concerns. Influenza swab neg. Supportive care. DVTPPX heparin Code status: Full code (discussed with patient, wants his Silvia to be his surrogate decision maker) Dispo pending clinical improvement, in 1-2 days. Visit type - Emergency Visit Emergency Visit: Yes ED Registration Date: 01/05/19 Care time: The patient presented to the Emergency Department on the above date and was hospitalized for further evaluation of their emergent condition. - New Patient This patient is new to me today: No - Critical Care Critical Care patient: No - Discharge Referral Referred to [facility] Med P.C.: No
--- NOTE | 2019-01-06 15:03 | EKG ---
Test Reason : Blood Pressure : / mmHG Vent. Rate : 096 BPM Atrial Rate : 068 BPM P-R Int : 000 ms QRS Dur : 152 ms QT Int : 420 ms P-R-T Axes : 000 -83 112 degrees QTc Int : 530 ms Ventricular-paced rhythm WITH FREQUENT AV dual-paced complexes Biventricular pacemaker detected ABNORMAL ECG WHEN COMPARED WITH ECG OF 05-JAN-2019 13:11, VENT. RATE HAS DECREASED BY 5 BPM Confirmed by MAGDALENE ESPINOZA MD ([id number]) on 01/06/2019 3:02:32 PM Referred By: Confirmed By:MAGDALENE ESPINOZA MD
[2019-01-06 15:10] VITALS: BP 127/80; PULSE 86; TEMP 99.2
--- NOTE | 2019-01-06 16:21 | DS ---
Physical Exam: SUBJECTIVE: Patient seen and examined at bedside. no acute event. good urine output. OBJECTIVE: Vital Signs Period Temp Pulse Resp BP Sys/[place] Pulse Ox Last 24 Hr 97.7 F-99.2 F 86-120 16-20 127-158/57-100 94-98 PHYSICAL EXAM GENERAL: The patient is awake, alert, and fully oriented, in no acute distress. HEAD: Normal with no signs of trauma. EYES: PERRL, extraocular movements intact, sclera anicteric, conjunctiva clear. ENT: Ears normal, nares patent, oropharynx clear without exudates, moist mucous membranes. NECK: Trachea midline, full range of motion, supple. LUNGS: Breath sounds equal, clear to auscultation bilaterally, no wheezes, no crackles, no accessory muscle use. HEART: tachycardic, S1, S2 without murmur, rub or gallop. ABDOMEN: Soft, nontender, nondistended, normoactive bowel sounds, no guarding, no rebound, no hepatosplenomegaly, no masses. EXTREMITIES: 2+ pulses, warm, well-perfused, no edema. NEUROLOGICAL: Cranial nerves II through XII grossly intact. Normal speech, gait not observed. PSYCH: Normal mood, normal affect. SKIN: Warm, dry, normal turgor, no rashes or lesions noted. LABS Laboratory Results - last 24 hr 01/05/19 01/06/19 01/06/19 10:30 06:40 06:40 WBC 4.1 RBC 4.30 Hgb 13.9 Hct 40.8 MCV 94.8 MCH 32.3 MCHC 34.1 RDW 15.6 Plt Count 98 L MPV 9.5 Absolute Neuts (auto) 3.1 Neutrophils % 76.5 Lymphocytes % 8.8 D Monocytes % 14.0 H Eosinophils % 0.2 Basophils % 0.5 Nucleated RBC % 0 Sodium 139 137 Potassium 3.5 3.8 Chloride 102 100 Carbon Dioxide 30 30 Anion Gap 7 L 6 L BUN 23 H 25 H Creatinine 1.2 1.3 Creat Clearance w eGFR 59.86 54.57 Random Glucose 105 126 H Calcium 8.1 L 8.4 L Phosphorus 3.4 Magnesium 1.8 Total Bilirubin 1.4 H AST 30 ALT 15 Alkaline Phosphatase 122 H Creatine Kinase 318 H Creatine Kinase Index 0.4 CK-MB (CK-2) 1.5 Troponin I 0.06 H 0.11 H B-Natriuretic Peptide 5640.4 H Total Protein 7.6 Albumin 3.2 L Triglycerides 103 Cholesterol 119 Total LDL Cholesterol 75 HDL Cholesterol 30 L TSH 1.48 D HOSPITAL COURSE: Date of Admission:01/05/19 68 yom with PMHx of CAD s/p PCI, LV systolic dysfunction (Last EF 15-20% in 2014 ), s/p PPM/AICD (3-4 years ago), Persistent Atrial fibrillation on NOAC, HTN, HLD comes with 3 weeks of progressive exertional dyspnea and orthopnea. He's found to have CHF exacrbation and seen by cardiology. he's started on lasix IV 40mg daily and diuresed well. Today he expressed to RN and MD that he'd like to go home. Discussed case with cardiology , will discharge the patient home on lasix 40mg PO daily, increased dose of entresto and aldactone. he will need to f /u with dr. hood in his office. he will resume taking the rest of his medications. Date of Discharge: 01/06/19 Minutes to complete discharge: 30 Discharge Summary Reason For Visit: SOB/ NON-ST ELEVATION MYOCARDIAL INFARCTION Condition: Stable - Instructions Diet, Activity, Other Instructions: You were admitted to the hospital for CHF exacerbation. Environmental Monitoring Specialist (Dr. Hood) saw you and decided to put you on daily lasix 40mg, and increased your entresto to 97-103 BID, aldactone to 50mg per day. Medication instruction: continue to take eliquis 5 mg twice a day, carvedilol 25mg twice a day. your entresto dose has increased to 97-103 twice a day your aldactone dose has increased to 50 mg once a day. continue to take lasix 40mg daily by mouth. Your urinalysis technician will discuss about starting a new medication for your Corlanor on next visit. Please discuss with him about the same. Follow up: you need to follow up with Dr. Brito ([phone]) within a week. It is very important that your kidney function and potassium levels are closely monitored on this medication. you will need to obtain blood work from your PCP to monitor your kidney function and potassium level on a regular basis. (Basic metabolic panel in 3-5 days with your doctor or Dr. Brito). Advise daily weights, notify doctor if weight gain > 3lbs in2 days noted. If you notice any new muscles aches/pains, jaundice or belly pain or any new concerns, please call your doctor. If you notice any palpitations, chest pressure, inability to breathe or any new concerns, please call 911 or come to ED immediately. Referrals: Bradley Brito MD [Staff Physician] - Christoph Recio MD [Primary Care Provider] - Disposition: HOME - Home Medications Comprehensive Discharge Medication List: Ambulatory Orders Apixaban [Eliquis] 5 mg PO BID 05/19/15 Aspirin [Ecotrin] 81 mg PO DAILY 05/19/15 Carvedilol 25 mg PO BID 05/19/15 Finasteride 5 mg PO DAILY 05/19/15 Allopurinol 400 mg PO DAILY 08/28/15 Furosemide [Lasix -] 40 mg PO DAILY #14 tablet 01/06/19 Sacubitril/Valsartan [Entresto 97 mg-103 mg Tablet] 1 tab PO BID #60 tablet Simvastatin 40 mg PO HS 01/06/19 Spironolactone [Aldactone -] 50 mg PO DAILY #28 tablet 01/06/19 This patient is new to me today: Yes Date on this admission: 01/06/19 Emergency Visit: No Critical Care patient: No - Discharge Referral Referred to [facility] No
[2019-01-06] MEDS ORDERED: SPIRONOLACTONE 25 MG TABLET (FP) PO ONE (18:00)
[2019-01-06] MEDS ORDERED: SACUBITRIL/VALSARTAN 97 MG-103 MG TABLET PO SCH (22:00)
== END 2019-01-06 17:30 | disposition home or self-care (01) | DRG 280 ==
LOC: JER 07:56 → UNDOADMOB 11:52 → INTOOBSV 11:52 → JERBED 11:52 → OBSVTOIN 14:41 → J4W 21:23
PROVIDERS: ADMIT Hospitalist; ATTEND Hospitalist
DX: I13.0 Hypertensive heart and chronic kidney disease with heart failure and stage 1 through stage 4 chronic kidney disease, or unspecified chronic kidney disease (principal); I21.A1 Myocardial infarction type 2; I50.23 Acute on chronic systolic (congestive) heart failure; I48.1 Persistent atrial fibrillation; N18.3 Chronic kidney disease, stage 3 (moderate); I25.110 Atherosclerotic heart disease of native coronary artery with unstable angina pectoris; E78.00 Pure hypercholesterolemia, unspecified; N40.0 Benign prostatic hyperplasia without lower urinary tract symptoms; Z95.810 Presence of automatic (implantable) cardiac defibrillator; Z95.5 Presence of coronary angioplasty implant and graft; Z96.642 Presence of left artificial hip joint
CPT/HCPCS: 36415; 71046-TC-FY; 80048; 80053; 80061; 82550; 82553; 83721; 83735; 83880; 84100; 84443; 84484; 85025; 87804; 93005; 93010; 93306-TC; 99283-25; G0378

== ENCOUNTER 2019-03-04 07:25 | Day surgery (SDC) | payer BC, OTHER ==
--- NOTE | 2019-03-04 07:48 | PDOC ---
History of Present Illness - General Chief Complaint: Shortness of Breath Stated Complaint: DIFF BREATHING Time Seen by Provider: 03/04/19 07:48 History Source: Patient Exam Limitations: No Limitations - History of Present Illness Initial Comments: 68 yo M w a hx of HTN, CAD with stent, afib, CHF s/p AICD, HLD, BPH, gout, and a suicide attempt presents to the ER with suprapubic abdominal pain. He is in a significant amount of distress and rates his pain as 11/10. He was experiencing some shortness of breath and chest discomfort this past wednesday so the patient visited his liquid fertilizer servicer - Dr. Rivera - who told the patient he has water in his lungs and needs some lasix to clear the fluid from his lungs. The patient has been taking lasix orally for the past 3 days but has not been able to urinate since yesterday morning. Today he reports a significant amount of lower abdominal pain and says he has not peed for over 24 hours. "He feels like he is obstructed." He says he occasionally becomes mildly short of breath as if he feels like his abdomen is enlarging and infringing upon his lung space. He has BPH and endorses chronic hesitancy and a weak stream but has never been obstructed in the past and has never needed a toledo. The patient also admits that he had one episode of watery diarrhea yesterday. Denies having any chest pain or recent fevers, chills, or infections. Denies dysuria or urgency. PCP: Dr. Recio Dynamics Ax Technical Architect: Dr. Rivera Urologist: None PSH: Stents, Joint Replacement (left hip) Social Hx: Denies smoking, drinking, or other illicit substance usage. Allergies: NKA, NKDA MEDS: eliquis - 5 mg Carvedilol - 25 mg simvastatin - 40 mg ecotrim - 81 mg allpurinol - 400 mg finasteride - 5 mg Spironolactone - 25 mg Furosemide - 20 mg Past History - Past Medical History Allergies/Adverse Reactions: Allergies Allergy/AdvReac Type Severity Reaction Status Date / Time No Known Allergies Allergy Verified 01/05/19 08:13 Home Medications: Ambulatory Orders Apixaban [Eliquis] 5 mg PO BID 05/19/15 Aspirin [Ecotrin] 81 mg PO DAILY 05/19/15 Carvedilol 25 mg PO BID 05/19/15 Finasteride 5 mg PO DAILY 05/19/15 Allopurinol 400 mg PO DAILY 08/28/15 Furosemide [Lasix -] 40 mg PO DAILY #14 tablet 01/06/19 Sacubitril/Valsartan [Entresto 97 mg-103 mg Tablet] 1 tab PO BID #60 tablet Simvastatin 40 mg PO HS 01/06/19 Spironolactone [Aldactone -] 50 mg PO DAILY #28 tablet 01/06/19 Anemia: No Asthma: No Cancer: No Cardiac Disorders: Yes (CAD with stent, afib, pace maker, defib) CVA: No COPD: No CHF: No Dementia: No Diabetes: No GI Disorders: No Disorders: No HTN: Yes Hypercholesterolemia: Yes Liver Disease: No Seizures: No Thyroid Disease: No - Surgical History Abdominal Surgery: Yes (Right Inguinal Hernia Repair) Appendectomy: No Cardiac Surgery: Yes (CARDIAC STENTS) Cholecystectomy: No Lung Surgery: No Neurologic Surgery: No Orthopedic Surgery: Yes (Left Hip Replacement 2013) - Immunization History Immunization Up to Date: Yes - Suicide/Smoking/Psychosocial Hx Smoking Status: No Smoking History: Never smoked Have you smoked in the past 12 months: No Number of Cigarettes Smoked Daily: 0 Information on smoking cessation initiated: No Hx Alcohol Use: No Drug/Substance Use Hx: No Substance Use Type: None Hx Substance Use Treatment: No Review of Systems - Review of Systems Able to Perform ROS?: Yes Comments:: CONSTITUTIONAL: Absent: fever, no chills, no fatigue EYES: Absent: visual changes ENT: Absent: ear pain, no sore throat CARDIOVASCULAR: Absent: chest pain, no palpitations RESPIRATORY: Present: SOB Absent: cough, GI: Present: Abdominal pain, diarrhea Absent: no nausea, no vomiting, no constipation GENITOURINARY: Present: Hesitancy Absent: dysuria, no frequency, no hematuria MUSKULOSKELETAL: Present: Back pain Absent: no arthralgia, no myalgia SKIN: Present: rash NEURO: Absent: headache *Physical Exam - Vital Signs Last Vital Signs Temp Pulse Resp BP Pulse Ox 97.6 F 118 H 16 143/90 94 L 03/04/19 07:29 03/04/19 07:29 03/04/19 07:29 03/04/19 07:29 03/04/19 07:29 - Physical Exam Comments: GENERAL: The patient appears to be in moderate pain. Well-nourished. HEENT: Normocephalic, atraumatic. PERRL, EOM intact. CARDIOVASCULAR: Normal S1, S2. tachycardic rate and regular rhythm. PULMONARY: No evidence of respiratory distress. Lungs clear to auscultation bilaterally. No wheezing, rales or rhonchi. ABDOMEN: Distended and tender to palpation in the suprapubic region. Abdoemn is distended above the umbilicus. EXTREMITIES: Normal ROM in all four extremities. No gross deformities. SKIN: Warm, dry. chronic petechial rash. NEUROLOGICAL: No focal neurological deficits. ED Treatment Course - LABORATORY CBC & Chemistry Diagram: 03/04/19 08:59 03/04/19 08:59 Medical Decision Making - Medical Decision Making 68 yo M w a hx of HTN, CAD with stent, afib, CHF s/p AICD, HLD, BPH, gout, and a suicide attempt presents to the ER with suprapubic abdominal pain. He is in a significant amount of distress and rates his pain as 11/10. He was experiencing some shortness of breath and chest discomfort this past wednesday so the patient visited his liquid fertilizer servicer - Dr. Rivera - who told the patient he has water in his lungs and needs some lasix to clear the fluid from his lungs. The patient has been taking lasix orally for the past 3 days but has not been able to urinate since yesterday morning. Today he reports a significant amount of lower abdominal pain and says he has not peed for over 24 hours. "He feels like he is obstructed." He says he occasionally becomes mildly short of breath as if he feels like his abdomen is enlarging and infringing upon his lung space. He has BPH and endorses chronic hesitancy and a weak stream but has never been obstructed in the past and has never needed a toledo. The patient also admits that he had one episode of watery diarrhea yesterday. VS: Tachycardic, hypoxic at triage but 98% saturation at bedside. - Patient is in a significant amount of pain. DDx IBNLT: Urinary obstruction secondary to BPH, UTI/Pylo, ANGEL, electrolyte/ metabolic disturbance. Plan: Labs, Urine, Bedside US, analgesia, re-assess. Bedside US shows the bladder has greater than 1200 CC of urine inside. - 16 scottish Toledo attempted by nurse 1 unsuccessful - 16 scottish coude attempted by 2nd nurse also without success. - The tip of both catheters had a small amount of blood around it. - Will consult Urology for help draining the patient's bladder. Dr Luna 's office is confidential investigator - Call placed at 9:00 AM for Uro consult. - Dr. Luna's office said Dr. Johnson is confidential investigator and will call back the ED. - 2nd call placed at 9:15 to Urology confidential investigator. Bone Worker Sonja said she will reach out to the Urologist again. - Dr. Anand called back at 9:30 and said he will be here in an hour. He requested to get an 18 and 20 size coude Toledo for the patient. - Central supplies contacted and Toledo's brought to the ER. - Patient given 4mg Morphine for pain control but little effect. Will give 1 mg dilaudid and re-assess. - Patient feels much better after hydromorphone. - Dr. Anand syas he will be here in 20 minutes at 11 am Labs: Notable for low potassium of 3.1 - will replete orally. CBC unremarkable. BUN/Cr - 27/1.2 which appears to be the patient's baseline. - Dr. Anand could not advance a 20 scottish coude catheter. He went to the OR to get special sturdy 24 gauge catheters and still could not advance past the enlarged prostate. - Dr. Johnson says the patient needs to be admitted to [facility] the OR STAT to have a cystoscopy guided toledo catherter placed to drain his distended bladder. - Will contact hospitalist and have patient admitted to [facility]. *DC/Admit/Observation/Transfer Diagnosis at time of Disposition: Urinary outflow obstruction - Discharge Dispostion Condition at time of disposition: Guarded Decision to Admit order: Yes - Referrals Referrals: Christoph Recio MD [Primary Care Provider] - - Patient Instructions - Post Discharge Activity
[2019-03-04] MEDS ORDERED: ACETAMINOPHEN 1000 MG/100 ML VIAL (NON FORMULARY) IVPB ONE (08:28)
[2019-03-04] MEDS ORDERED: ACETAMINOPHEN INJECTION 100 ML IVPB ONE (08:54)
[2019-03-04 09:16] LABS: BASO % 0.4 % (0-2.0); EOS % 0.1 % (0-4.5); HEMATOCRIT 39.6 % (35.4-49); HEMOGLOBIN 13.3 GM/dL (11.7-16.9); LYMPH % 8.1 % (8-40); MCH 32.2 pg (25.7-33.7); MCHC 33.7 g/dl (32.0-35.9); MEAN CELL VOLUME 95.5 fl (80-96); MEAN PLT VOLUME 8.9 fl (7.5-11.1); MONO % 9.3 % (3.8-10.2); NEUT % 82.1 % (42.8-82.8); PLATELET COUNT 139 K/MM3 (134-434); RBC 4.15 M/mm3 (4.00-5.60); RDW 16.2 % (11.9-15.9); WHITE BLOOD COUNT 4.5 K/mm3 (4.0-10.0)
[2019-03-04] MEDS ORDERED: morphine CARPU-JECT 4 MG/1 ML DISP.SYRIN IVPUSH ONE (09:28)
[2019-03-04] MEDS ORDERED: morphine SULFATE 4 MG/ML VIAL ONE (09:38)
--- NOTE | 2019-03-04 09:43 | PDOC ---
Attending Attestation - Resident Resident Name: Christoph Mosqueda - ED Attending Attestation I have performed the following: I have examined & evaluated the patient, The case was reviewed & discussed with the resident, I agree w/resident's findings & plan, Exceptions are as noted - HPI HPI: 03/04/19 09:38 68 yo M h/o HTN, CAD with stent, afib, CHF s/p AICD, HLD, BPH, gout here with inability to urinate since yesterday. pt states he was started on lasix recently. now c/o lower abd pain and fullness, states is making it hard for him to breath. states he was straining to urinate, and became sob. denies current feeling of sob, no exertional dyspnea. no f/c no nausea or vomiting. 03/04/19 10:57 - Physicial Exam PE: 03/04/19 09:40 awake alert lungs clear bilaterally heart rrr no mrg abd soft palp bladder at level of umbilicus. ext wwp no edema. no calf tendernss. alet oriented x 3. skin warm and dry. - Medical Decision Making 03/04/19 09:41 68 yo male h/o htn afib here with urinary retention. focused ed ultrsound performed, indication gali hydronephrosis/ urinary retention. bilat kidneys scanned. mild left hydronephrosis, and renal cyst. simple measuring 1.x cm. renal length 10.2 cm. right kidney unremarkable mid hydronephrosis 11.2 cm in length bladder distended 1200 mL approx urine. impression: urinary retention wtih mild bilateral hydro, left simple renal cyst. plan bedisde toledo. attempted toledo x 2 unable to pass catheter. paged dr. Johnson, will see pt in ED. labs pending cr r/o renal failure, cbc , ua urine culture. pain control with morphine. 03/04/19 10:48 03/04/19 10:58 03/04/19 10:58
[2019-03-04 09:50] LABS: ALK PHOS 119 U/L (45-117); ANION GAP 10 MMOL/L (8-16); BILIRUBIN,TOTAL 1.2 mg/dL (0.2-1); BLOOD UREA NITROGEN 27 mg/dL (7-18); CALCIUM 8.2 mg/dL (8.5-10.1); CHLORIDE 102 mmol/L (98-107); CO2 27 mmol/L (21-32); CREATININE 1.2 mg/dL (0.55-1.3); GLUCOSE,RANDOM 138 mg/dL (74-106); POTASSIUM 3.1 mmol/L (3.5-5.1); SGOT/AST 24 U/L (15-37); SGPT/ALT 16 U/L (13-61); SODIUM 139 mmol/L (136-145); TOT PROT 7.3 g/dl (6.4-8.2)
[2019-03-04] MEDS ORDERED: HYDROmorphone HCL CARPU-JECT 2 MG/1 ML DISP.SYRIN IVPUSH ONE (11:01)
[2019-03-04] MEDS ORDERED: HYDROmorphone HCl 2 MG/ML VIAL ONE (11:02)
[2019-03-04] MEDS ORDERED: POTASSIUM CHLORIDE ORAL LIQUID 20 MEQ/15 ML PO ONE ×2 (11:03→12:47)
[2019-03-04] MEDS ORDERED: LIDOCAINE HCL 2% JELLY (5 ML/TUBE) TP ONE (11:46)
[2019-03-04] MEDS ORDERED: LIDOCAINE HCL 2% JELLY 10 ML CARTRIDGE PR ONE (11:47)
[2019-03-04] MEDS ORDERED: LIDOCAINE HCL 2% JELLY 10 ML CARTRIDGE ONE (11:48)
[2019-03-04] MEDS ORDERED: POTASSIUM CHLORIDE ORAL LIQUID 20 MEQ/15 ML ONE (12:09)
--- NOTE | 2019-03-04 12:25 | CON.GU ---
Consult - History of Present Illness History of Present Illness: 68 yo male with multiple medical problems including BPH for which he takes meds but doesnt see a urologist nor has he had any prostate surgery. At baseline has weak stream. Now with inability to void since yesterday. Recently started lasix. No prior h/o retention. Attempt at toledo placement in ER by staff unsuccessful. I tried several coude catheters which keep folding back at the level of the prostatic urethra. - Past Medical History Cardio/Vascular: Yes: AFIB, CAD, CHF, Hyperlipdemia Renal/: Yes: BPH - Past Surgical History Past Surgical History: Yes: Joint Replacement (left hip), Permanent Pacemaker, Stent - Alcohol/Substance Use Hx Alcohol Use: No - Smoking History Smoking history: Never smoked Have you smoked in the past 12 months: No Aproximately how many cigarettes per day: 0 Home Medications - Allergies Allergies/Adverse Reactions: Allergies Allergy/AdvReac Type Severity Reaction Status Date / Time No Known Allergies Allergy Verified 01/05/19 08:13 - Home Medications Home Medications: Ambulatory Orders Apixaban [Eliquis] 5 mg PO BID 05/19/15 Aspirin [Ecotrin] 81 mg PO DAILY 05/19/15 Carvedilol 25 mg PO BID 05/19/15 Finasteride 5 mg PO DAILY 05/19/15 Allopurinol 400 mg PO DAILY 08/28/15 Furosemide [Lasix -] 40 mg PO DAILY #14 tablet 01/06/19 Sacubitril/Valsartan [Entresto 97 mg-103 mg Tablet] 1 tab PO BID #60 tablet Simvastatin 40 mg PO HS 01/06/19 Spironolactone [Aldactone -] 50 mg PO DAILY #28 tablet 01/06/19 Review of Systems - Review of Systems Genitourinary: reports: Other (retention) Physical Exam- Vital Signs: Vital Signs Temperature 97.5 F L 03/04/19 11:25 Pulse Rate 89 03/04/19 11:25 Respiratory Rate 18 03/04/19 11:25 Blood Pressure 116/65 03/04/19 11:25 O2 Sat by Pulse Oximetry (%) 95 03/04/19 11:25 Renal/: Yes: Bladder Distention Labs: CBC, BMP 03/04/19 08:59 03/04/19 08:59 Problem List - Problems (1) Urinary retention due to benign prostatic hyperplasia Assessment/Plan: plan to take to OR for cystoscopy and toledo insertion under anesthesia, possible suprapubic tube placement Code(s): N40.1 - BENIGN PROSTATIC HYPERPLASIA WITH LOWER URINARY TRACT SYMP; R33.8 - OTHER RETENTION OF URINE
--- NOTE | 2019-03-04 12:48 | HP ---
Admitting History and Physical - Primary Care Physician PCP: Dr Recio - Admission Chief Complaint: Urinary retention and abdominal pain History of Present Illness: 68 yo M w a hx of HTN, CAD with stent, afib, CHF s/p AICD on eliquis, HLD, BPH, gout, and a suicide attempt presents to the ER with suprapubic abdominal pain. Pt reports recently receiving lasix for worsening SOB and being unable to pass urine all night yesterday. He has a known hx of BPH for which he takes finasteride. He has also been on eliquis for the more recent AICD, unsure when and he took hs AC this amalong with ASA. Pt noted slight burning while trying to pass urine but no prior fevers, no flank pain. After up to 4 failed attempts of passing the urethral catheter in the ED, he was scheduled for sedation and cystoscopy/toledo insertion. At the time I saw he pt in the ED, he was calm and not SOB. History Source: Patient, Family Member, Medical Record Limitations to Obtaining History: No Limitations - Past Medical History Cardiovascular: Yes: AFIB, CAD, CHF, Hyperlipdemia Renal/: Yes: BPH - Past Surgical History Past Surgical History: Yes: Joint Replacement (left hip), Permanent Pacemaker, Stent - Smoking History Smoking history: Never smoked Have you smoked in the past 12 months: No Aproximately how many cigarettes per day: 0 - Alcohol/Substance Use Hx Alcohol Use: No - Social History Usual Living Arrangement: Yes: With Spouse ADL: Independent Home Medications - Allergies Allergies/Adverse Reactions: Allergies Allergy/AdvReac Type Severity Reaction Status Date / Time No Known Allergies Allergy Verified 01/05/19 08:13 - Home Medications Home Medications: Ambulatory Orders Apixaban [Eliquis] 5 mg PO BID 05/19/15 Aspirin [Ecotrin] 81 mg PO DAILY 05/19/15 Carvedilol 25 mg PO BID 05/19/15 Finasteride 5 mg PO DAILY 05/19/15 Allopurinol 400 mg PO DAILY 08/28/15 Furosemide [Lasix -] 40 mg PO DAILY #14 tablet 01/06/19 Sacubitril/Valsartan [Entresto 97 mg-103 mg Tablet] 1 tab PO BID #60 tablet Simvastatin 40 mg PO HS 01/06/19 Spironolactone [Aldactone -] 50 mg PO DAILY #28 tablet 01/06/19 Review of Systems - Review of Systems Constitutional: denies: Fever Cardiovascular: reports: Shortness of Breath. denies: Chest Pain, Edema Respiratory: reports: Exercise Intolerance. denies: Wheezing Gastrointestinal: reports: Abdominal Pain, Diarrhea. denies: Constipation, Vomiting Genitourinary: reports: Burning, Dysuria, Other (urinary retention, blood stainedunderwear following failed catheterization) Musculoskeletal: reports: No Symptoms Neurological: reports: No Symptoms Hematology/Lymphatic: reports: Other (On anticoagulation) Psychiatric: reports: No Symptoms Physical Examination Vital Signs: Vital Signs Temperature 97.5 F L 03/04/19 11:25 Pulse Rate 89 03/04/19 11:25 Respiratory Rate 18 03/04/19 11:25 Blood Pressure 116/65 03/04/19 11:25 O2 Sat by Pulse Oximetry (%) 95 03/04/19 11:25 Labs: CBC, BMP 03/04/19 08:59 03/04/19 08:59 Assessment/Plan Current Medications Ambulatory Orders Apixaban [Eliquis] 5 mg PO BID 05/19/15 Aspirin [Ecotrin] 81 mg PO DAILY 05/19/15 Carvedilol 25 mg PO BID 05/19/15 Finasteride 5 mg PO DAILY 05/19/15 Allopurinol 400 mg PO DAILY 08/28/15 Furosemide [Lasix -] 40 mg PO DAILY #14 tablet 01/06/19 Sacubitril/Valsartan [Entresto 97 mg-103 mg Tablet] 1 tab PO BID #60 tablet Simvastatin 40 mg PO HS 01/06/19 Spironolactone [Aldactone -] 50 mg PO DAILY #28 tablet 01/06/19 Dextrose/Sodium Chloride (D5-1/2ns -) 1,000 mls @ 75 mls/hr IV ASDIR ALEXANDER Last Admin: 03/04/19 14:40 Dose: 0 mls Oxycodone HCl (Roxicodone -) 5 mg PO Q4H PRN PRN Reason: PAIN-PACU Stop: 03/05/19 13:53 Tamsulosin HCl (Flomax -) 0.4 mg PO ONCE ONE Stop: 03/04/19 15:10 Assessment/Plan: 68 yo M w a hx of HTN, CAD with stent, afib, CHF s/p AICD on eliquis, HLD, BPH, gout, and a suicide attempt presents to the ER with suprapubic abdominal pain, found to have urinary retention up to 1200mls, had failed catheterizatin in ED now s/p cystoscopy with toledo insertion #Acute urinary retention s/p cystoscopy with toledo insertion Per Dr Anand In setting of BPH Start flomax 0.4mg HS Failed catheterization in ED x4 Urine bag with clear urine, postop-bloody urethral meatus and groin Pt not in pain at this time PO tylenol 650mg Q6H MN #CAD with stent/afib Pt has been on eliquis and took his dose this am, resume in am On ASA took this am Carvedilol 25 bid Lasix 40mg daily - resume in am Sacubitril/Valsartan [Entresto 97 mg-103 mg bid- cont #CHF s/p AICD on eliquis EKG-vent rate 106(in pain), ventricular paced, irreg rhythm, Meets criteria for LVH, no KEREN/STD #HLD Simvastatin 40 mg PO HS #BPH On home Finasteride 5 mg PO DAILY Add PO flomax 0.4mg HS #gout Allopurinol 400 mg PO DAILY #FEN No Standing fluids Monitor lytes, replete as needed- PO KCl given Diet #PPx SCDs- received eliquis #Dispo Will observe pt overnight for bleed Dc if stable in am Visit type - Emergency Visit Emergency Visit: Yes Care time: The patient presented to the Emergency Department on the above date and was hospitalized for further evaluation of their emergent condition. - New Patient This patient is new to me today: Yes Date on this admission: 03/04/19 - Critical Care Critical Care patient: No
[2019-03-04] MEDS ORDERED: DEXAMETHASONE SOD PHOSPHATE 4 MG/1 ML VIAL ONE (13:33)
[2019-03-04] MEDS ORDERED: ceFAZolin SODIUM 1 GM VIAL IVPB ONE (13:35)
[2019-03-04] MEDS ORDERED: PROPOFOL 20 ML ONE (13:35)
[2019-03-04] MEDS ORDERED: ceFAZolin SODIUM 1 GM VIAL ONE (13:35)
[2019-03-04] MEDS ORDERED: LIDOCAINE HCL/PF 2% SDV 5ML VIAL ONE (13:35)
[2019-03-04] MEDS ORDERED: oxyCODONE HCL 5 MG TABLET PO PRN (13:54)
--- NOTE | 2019-03-04 13:56 | OP ---
Operative Note - Note: Operative Date: 03/04/19 Pre-Operative Diagnosis: urinary retention Operation: cysto/toledo insertion Findings: BPH Post-Operative Diagnosis: Same as Pre-op Surgeon: Mahesh Anand Anesthesia: General Estimated Blood Loss (mls): 0 Drains & Tubes with Location: 18 fr toledo Operative Report Dictated: Yes
[2019-03-04] MEDS ORDERED: DEXTROSE 5%-0.45% SALINE 1,000 ML IV SCH (14:00)
[2019-03-04] MEDS ORDERED: TAMSULOSIN HCL 0.4 MG CAP PO ONE (15:09)
[2019-03-04 15:28] VITALS: BMI 25.0
--- NOTE | 2019-03-04 16:21 | PN ---
Teaching Attending Note Name of Resident: Elaine Mejia ATTENDING PHYSICIAN STATEMENT I saw and evaluated the patient. I reviewed the resident's note and discussed the case with the resident. I agree with the resident's findings and plan as documented. SUBJECTIVE: Feels better - no further abdominal pain. No fever/chills. OBJECTIVE: Afebrile, Hemodynamically Stable. Last Vital Signs Temp Pulse Resp BP Pulse Ox 97.4 F L 77 20 132/80 100 03/04/19 15:15 03/04/19 15:15 03/04/19 15:15 03/04/19 15:15 03/04/19 14:40 HEENT - Atraumatic, Normocephalic. Heart - S1, S2, RRR Lungs - clear to auscultation Abdomen - soft, non-tender. Bowel Sounds normal. - [place] in situ draining clear urine. Extremities - bilateral varicosities. No calf tenderness Laboratory Results - last 24 hr 03/04/19 03/04/19 08:59 08:59 WBC 4.5 RBC 4.15 Hgb 13.3 Hct 39.6 MCV 95.5 MCH 32.2 MCHC 33.7 RDW 16.2 H Plt Count 139 D MPV 8.9 Absolute Neuts (auto) 3.7 Neutrophils % 82.1 Lymphocytes % 8.1 Monocytes % 9.3 Eosinophils % 0.1 Basophils % 0.4 Nucleated RBC % 0 Sodium 139 Potassium 3.1 L Chloride 102 Carbon Dioxide 27 Anion Gap 10 BUN 27 H Creatinine 1.2 Creat Clearance w eGFR 59.86 Random Glucose 138 H Calcium 8.2 L Total Bilirubin 1.2 H AST 24 ALT 16 Alkaline Phosphatase 119 H Total Protein 7.3 Albumin 3.0 L Current Medications Generic Name Dose Route Start Last Admin Trade Name Freq PRN Reason Stop Dose Admin Dextrose/Sodium Chloride 1,000 mls @ 75 mls/hr 03/04/19 14:00 03/04/19 14:40 D5-1/2ns - IV 0 mls ASDIR ALEXANDER Administration Oxycodone HCl 5 mg 03/04/19 13:54 Roxicodone - PO 03/05/19 13:53 Q4H PRN PAIN-PACU Home Medications Medication Instructions Recorded Apixaban [Eliquis] 5 mg PO BID 05/19/15 Aspirin [Ecotrin] 81 mg PO DAILY 05/19/15 Carvedilol 25 mg PO BID 05/19/15 Finasteride 5 mg PO DAILY 05/19/15 Allopurinol 400 mg PO DAILY 08/28/15 Furosemide [Lasix -] 40 mg PO DAILY #14 tablet 01/06/19 Sacubitril/Valsartan [Entresto 97 1 tab PO BID #60 tablet 01/06/19 mg-103 mg Tablet] Simvastatin 40 mg PO HS 01/06/19 Spironolactone [Aldactone -] 50 mg PO DAILY #28 tablet 01/06/19 ASSESSMENT AND PLAN: 68 year old male with history of HTN, HLD, CAD s/p PCI/Stent, Atrial Fibrillation (on Eliquis), Gout, CHF, s/p AICD, HX Depression and prior suicide attempt, BPH (on Finasteride), presents with abdominal pain secondary to urinary retention. ED staff unable to pass toledo. Urology unable to pass toledo. Admission for [place] insertion under cystoscopy. 1. Acute Urinary Retention secondary to BPH with Hematuria - resolved Failed traumatic [place] insertion attempt in ED by ED staff and Urology with bloody discharge from meatus Immediately post-op s/p Cystoscopy with [place] insertion Urine clear - resume Eliquis As per urology, will add Flomax to Finasteride Observation for Hematuria Urology 1 week follow up. 2. Chronic Systolic CHF s/p AICD No evidence of acute exacerbation Continue BB, ARB, Lasix. 3. CAD s/p PCI/Stent Continue Aspirin, Carvedilol, Valsartan, Simvastatin 4. Atrial Fibrillation Continue BB and Eliquis. 5. HLD - Continue Statin 6. Hx of Gout - Continue Allopurinol 7. Hypokalemia - will replete. DVT Px - Will resume Eliquis
[2019-03-04] MEDS ORDERED: ACETAMINOPHEN 325 MG TABLET (FP) PO PRN (16:24)
[2019-03-04] MEDS ORDERED: PT OWN MED DRAWER 7, Y5N ONE (16:53)
[2019-03-04 18:43] LABS: HEMATOCRIT 37.8 % (35.4-49); HEMOGLOBIN 12.6 GM/dL (11.7-16.9); MCH 32.2 pg (25.7-33.7); MCHC 33.4 g/dl (32.0-35.9); MEAN CELL VOLUME 96.4 fl (80-96); MEAN PLT VOLUME 9.1 fl (7.5-11.1); PLATELET COUNT 120 K/MM3 (134-434); RBC 3.92 M/mm3 (4.00-5.60); RDW 16.1 % (11.9-15.9); WHITE BLOOD COUNT 5.6 K/mm3 (4.0-10.0)
[2019-03-04] MEDS: CARVEDILOL 25 MG TABLET (FP) PO SCH (21:41)
[2019-03-04] MEDS: SACUBITRIL/VALSARTAN 97 MG-103 MG TABLET PO SCH (21:41)
[2019-03-04] MEDS: ATORVASTATIN CA 20 MG TABLET (FP) PO SCH (21:41)
[2019-03-05] MEDS ORDERED: PT OWN MED DRAWER 7, Y5N ONE (09:07)
[2019-03-05] MEDS: SPIRONOLACTONE 25 MG TABLET (FP) PO SCH (09:09)
[2019-03-05] MEDS: ASPIRIN COATED 81 MG TABLET.EC PO SCH (09:09)
[2019-03-05] MEDS: CARVEDILOL 25 MG TABLET (FP) PO SCH ×2 (09:09→21:46)
[2019-03-05] MEDS: FUROSEMIDE 40 MG TABLET (FP) PO SCH (09:10)
[2019-03-05] MEDS: SACUBITRIL/VALSARTAN 97 MG-103 MG TABLET PO SCH ×2 (09:10→21:47)
[2019-03-05] MEDS: ALLOPURINOL 100 MG TABLET (FP) PO SCH (09:10)
[2019-03-05] MEDS: FINASTERIDE 5 MG TABLET (FP) PO SCH (09:10)
[2019-03-05] MEDS ORDERED: POTASSIUM CHLORIDE TABS 20 MEQ TABLET.ER (FP) PO ONE (11:27)
[2019-03-05 13:20] LABS: BASO % 0.2 % (0-2.0); EOS % 0.1 % (0-4.5); HEMATOCRIT 35.6 % (35.4-49); HEMOGLOBIN 11.8 GM/dL (11.7-16.9); LYMPH % 8.2 % (8-40); MCH 31.5 pg (25.7-33.7); MCHC 33.1 g/dl (32.0-35.9); MEAN CELL VOLUME 95.4 fl (80-96); MEAN PLT VOLUME 9.1 fl (7.5-11.1); MONO % 8.9 % (3.8-10.2); NEUT % 82.6 % (42.8-82.8); PLATELET COUNT 125 K/MM3 (134-434); RBC 3.74 M/mm3 (4.00-5.60); RDW 15.9 % (11.9-15.9)
--- NOTE | 2019-03-05 18:14 | PN ---
Progress Note (short form) - Note Progress Note: SUBJECTIVE: Feels better - no further abdominal pain. No fever/chills. OBJECTIVE: Afebrile, Hemodynamically Stable. Last Vital Signs Temp Pulse Resp BP Pulse Ox 98.1 F 78 20 132/75 100 03/05/19 15:18 03/05/19 15:18 03/05/19 15:18 03/05/19 08:20 03/04/19 14:40 HEENT - Atraumatic, Normocephalic. Heart - S1, S2, RRR Lungs - clear to auscultation Abdomen - soft, non-tender. Bowel Sounds normal. - [place] in situ draining blood tinged urine. Extremities - bilateral varicosities. No calf tenderness Laboratory Results - last 24 hr 03/04/19 03/05/19 03/05/19 18:25 10:15 11:56 WBC 5.6 5.0 RBC 3.92 L 3.74 L Hgb 12.6 11.8 Hct 37.8 35.6 MCV 96.4 H 95.4 MCH 32.2 31.5 MCHC 33.4 33.1 RDW 16.1 H 15.9 Plt Count 120 L 125 L MPV 9.1 9.1 Absolute Neuts (auto) 4.1 Neutrophils % 82.6 Lymphocytes % 8.2 Monocytes % 8.9 Eosinophils % 0.1 Basophils % 0.2 Nucleated RBC % 0 Potassium 3.2 L Current Medications Generic Name Dose Route Start Last Admin Trade Name Freq PRN Reason Stop Dose Admin Acetaminophen 650 mg 03/04/19 16:24 Tylenol - PO Q6H PRN PAIN LEVEL 1-5 Allopurinol 400 mg 03/05/19 10:00 03/05/19 09:10 Zyloprim - PO 400 mg DAILY ALEXANDER Administration Apixaban 5 mg 03/05/19 22:00 Eliquis - PO BID ALEXANDER Aspirin 81 mg 03/05/19 10:00 03/05/19 09:09 Ecotrin - PO 81 mg DAILY ALEXANDER Administration Atorvastatin Calcium 20 mg 03/04/19 22:00 03/04/19 21:41 Lipitor - PO 20 mg HS ALEXANDER Administration Carvedilol 25 mg 03/04/19 22:00 03/05/19 09:09 Coreg - PO 25 mg BID ALEXANDER Administration Finasteride 5 mg 03/05/19 10:00 03/05/19 09:10 Proscar - PO 5 mg DAILY ALEXANDER Administration Furosemide 40 mg 03/05/19 10:00 03/05/19 09:10 Lasix - PO 40 mg DAILY ALEXANDER Administration Sacubitril/Valsartan 1 tab 03/04/19 22:00 03/05/19 09:10 Entresto 97 Mg-103 Mg Tablet PO 1 tab BID ALEXANDER Administration Spironolactone 50 mg 03/05/19 10:00 03/05/19 09:09 Aldactone - PO 50 mg DAILY ALEXANDER Administration ASSESSMENT AND PLAN: 68 year old male with history of HTN, HLD, CAD s/p PCI/Stent, Atrial Fibrillation (on Eliquis), Gout, CHF, s/p AICD, HX Depression and prior suicide attempt, BPH (on Finasteride), presents with abdominal pain secondary to urinary retention. ED staff unable to pass toledo. Urology was also unable to pass toledo. Admission for [place] insertion under cystoscopy. 1. Acute Urinary Retention secondary to BPH - resolved Failed traumatic [place] insertion attempt in ED by ED staff and Urology with bloody discharge from meatus POD 1 s/p Cystoscopy with [place] insertion As per urology, will add Flomax to Finasteride Ongoing Observation for Hematuria Urology 1 week follow up. 2. Hematuria s/p traumatic attempt and subsequent surgical toledo insertion under cystoscopy Urine in catheter blood tinged. H/H stable. Hemodynamically stable Discussed with Dr Anand - Juan rosales and will observe for another night. 3. Chronic Systolic CHF s/p AICD No evidence of acute exacerbation Continue BB, ARB, Lasix. 4. CAD s/p PCI/Stent Continue Aspirin, Carvedilol, Valsartan, Simvastatin 5. Atrial Fibrillation Continue BB. Eliquis held for Hematuria. 6. HLD - Continue Statin 7. Hx of Gout - Continue Allopurinol 8. Hypokalemia - persistent, will replete. DVT Px - Eliquis held due to Hematuria. Visit type - Emergency Visit Emergency Visit: Yes Care time: The patient presented to the Emergency Department on the above date and was hospitalized for further evaluation of their emergent condition. - New Patient This patient is new to me today: No - Critical Care Critical Care patient: No - Discharge Referral Referred to [facility] Med P.C.: No
[2019-03-05] MEDS: ATORVASTATIN CA 20 MG TABLET (FP) PO SCH (21:46)
[2019-03-05] MEDS ORDERED: APIXABAN 5 MG TABLET PO SCH (22:00)
--- NOTE | 2019-03-06 07:56 | OP ---
DATE OF OPERATION: 03/04/2019 PREOPERATIVE DIAGNOSIS: Benign prostatic hypertrophy with urinary retention. POSTOPERATIVE DIAGNOSIS: Benign prostatic hypertrophy with urinary retention. PROCEDURE: Cystoscopy. Cystoscopic-assisted Sal insertion. SURGEON: Karlie Kerns MD INDICATIONS: Patient is a 68-year-old male with acute onset of urinary retention, history of BPH. Sal catheter cannot be placed by either ER staff or myself in the emergency room. He was taken emergently to the OR because of distended bladder for cystoscopic-assisted Sal insertion. DESCRIPTION OF PROCEDURE: Patient taken to the OR and laid supine on the operating room table. Cardiac monitoring administered and general anesthesia established. He was prepped and draped in the dorsal lithotomy position. The flexible cystoscope was inserted in the urethra without difficulty. Anterior urethra was normal. There was some clot in the pendulous urethra. The prostatic urethra was enlarged with a high bladder neck. The bladder was visualized. No tumors or stones noted in the bladder. At this point, a guide wire was advanced into the bladder. Cystoscope was then removed and over a guide wire using the Seldinger technique, an 18-Lebanese Sal catheter was inserted without difficulty and the wire removed. Clear urine was retrieved. The patient was then awoken from anesthesia and transferred to the recovery room in stable condition. There were no complications. No blood loss. KARLIE KERNS M.D. [id number]
[2019-03-06 09:06] LABS: BASO % 0.7 % (0-2.0); EOS % 0.8 % (0-4.5); HEMATOCRIT 37.6 % (35.4-49); HEMOGLOBIN 12.6 GM/dL (11.7-16.9); LYMPH % 10.1 % (8-40); MCH 32.2 pg (25.7-33.7); MCHC 33.4 g/dl (32.0-35.9); MEAN CELL VOLUME 96.5 fl (80-96); MONO % 7.7 % (3.8-10.2); NEUT % 80.7 % (42.8-82.8); PLATELET COUNT 111 K/MM3 (134-434); RDW 16.5 % (11.9-15.9); WHITE BLOOD COUNT 4.1 K/mm3 (4.0-10.0)
[2019-03-06] MEDS ORDERED: PT OWN MED DRAWER 7, Y5N ONE (09:28)
[2019-03-06] MEDS: ASPIRIN COATED 81 MG TABLET.EC PO SCH (09:30)
[2019-03-06] MEDS: SPIRONOLACTONE 25 MG TABLET (FP) PO SCH (09:30)
[2019-03-06] MEDS: CARVEDILOL 25 MG TABLET (FP) PO SCH (09:30)
[2019-03-06] MEDS: SACUBITRIL/VALSARTAN 97 MG-103 MG TABLET PO SCH (09:31)
[2019-03-06] MEDS: ALLOPURINOL 100 MG TABLET (FP) PO SCH (09:31)
[2019-03-06] MEDS: FUROSEMIDE 40 MG TABLET (FP) PO SCH (09:31)
[2019-03-06] MEDS: FINASTERIDE 5 MG TABLET (FP) PO SCH (09:31)
[2019-03-06] MEDS ORDERED: POTASSIUM CHLORIDE ORAL LIQUID 20 MEQ/15 ML PO ONE (10:30)
--- NOTE | 2019-03-06 10:37 | EKG ---
Test Reason : Blood Pressure : / mmHG Vent. Rate : 106 BPM Atrial Rate : 055 BPM P-R Int : 000 ms QRS Dur : 166 ms QT Int : 374 ms P-R-T Axes : 000 148 000 degrees QTc Int : 496 ms Ventricular-paced rhythm ABNORMAL ECG WHEN COMPARED WITH ECG OF 06-JAN-2019 09:35, VENT. RATE HAS INCREASED BY 10 BPM Confirmed by ALMAS DICKERSON MD ([id number]) on 03/06/2019 10:37:08 AM Also confirmed by ASHLYN ESPINOSA MD ([id number]) on 03/06/2019 10:39:12 AM Referred By: Confirmed By:ASHLYN ESPINOSA MD
[2019-03-06 11:09] VITALS: BP 144/90; PULSE 93; TEMP 97.9
--- NOTE | 2019-03-06 14:50 | PN ---
Teaching Attending Note Name of Resident: Isrrael Turcios ATTENDING PHYSICIAN STATEMENT I saw and evaluated the patient. I reviewed the resident's note and discussed the case with the resident. I agree with the resident's findings and plan as documented. SUBJECTIVE: Feels better - no further abdominal pain. No fever/chills. OBJECTIVE: Afebrile, Hemodynamically Stable. Hematuria resolved. Last Vital Signs Temp Pulse Resp BP Pulse Ox 97.9 F 93 H 18 144/90 98 03/06/19 08:25 03/06/19 08:25 03/06/19 08:25 03/06/19 08:25 03/05/19 21:00 Heart - S1, S2, RRR Lungs - clear to auscultation Abdomen - soft, non-tender. Bowel Sounds normal. - [place] in situ draining clear urine Extremities - bilateral varicosities. No calf tenderness Laboratory Results - last 24 hr 03/06/19 03/06/19 08:37 08:37 WBC 4.1 RBC 3.90 L Hgb 12.6 Hct 37.6 MCV 96.5 H MCH 32.2 MCHC 33.4 RDW 16.5 H Plt Count 111 L MPV 9.0 Absolute Neuts (auto) 3.3 Neutrophils % 80.7 Lymphocytes % 10.1 D Monocytes % 7.7 Eosinophils % 0.8 D Basophils % 0.7 D Nucleated RBC % 0 Potassium 3.3 L Discharge Medications Medication Instructions Recorded Apixaban [Eliquis] 5 mg PO BID 05/19/15 Aspirin [Ecotrin] 81 mg PO DAILY 05/19/15 Carvedilol 25 mg PO BID 05/19/15 Finasteride 5 mg PO DAILY 05/19/15 Allopurinol 400 mg PO DAILY 08/28/15 Furosemide [Lasix -] 40 mg PO DAILY #14 tablet 01/06/19 Sacubitril/Valsartan [Entresto 97 1 tab PO BID #60 tablet 01/06/19 mg-103 mg Tablet] Simvastatin 40 mg PO HS 01/06/19 Spironolactone [Aldactone -] 50 mg PO DAILY #28 tablet 01/06/19 Tamsulosin HCl [Flomax] 0.4 mg PO HS #30 cap.er.24h 03/06/19 ASSESSMENT AND PLAN: 68 year old male with history of HTN, HLD, CAD s/p PCI/Stent, Atrial Fibrillation (on Eliquis), Gout, CHF, s/p AICD, HX Depression and prior suicide attempt, BPH (on Finasteride), presents with abdominal pain secondary to urinary retention. ED staff unable to pass toledo. Urology was also unable to pass toledo. Admission for [place] insertion under cystoscopy. 1. Acute Urinary Retention secondary to BPH - resolved Failed traumatic [place] insertion attempt in ED by ED staff and Urology with bloody discharge from meatus POD 2 s/p Cystoscopy with [place] insertion As per urology, will add Flomax to Finasteride Ongoing Observation for Hematuria, now resolved. H/H stable. Urology 1 week follow up. 2. Hematuria s/p traumatic attempt and subsequent surgical toledo insertion under cystoscopy - resolved. Urine in catheter now clear H/H stable. Hemodynamically stable Discussed with Dr Anand - for out-patient follow up for TOV in office. Eliquis to be resumed tomorrow. 3. Chronic Systolic CHF s/p AICD No evidence of acute exacerbation Continue BB, ARB, Lasix. 4. CAD s/p PCI/Stent On Aspirin, Carvedilol, Valsartan, Simvastatin Cardiology out-patient follow up to consider need for Aspirin and Eliquis. 5. Atrial Fibrillation Continue BB and resume Eliquis. 6. HLD - Continue Statin 7. Hx of Gout - Continue Allopurinol 8. Hypokalemia - will replete. Hematuria resolved. Medically/Hemodynamically Stable for discharge.
--- NOTE | 2019-03-06 15:33 | DS ---
Physical Exam: SUBJECTIVE: Patient seen and examined OBJECTIVE: Vital Signs Period Temp Pulse Resp BP Sys/Butterfield Pulse Ox Last 24 Hr 97.9 F-98.8 F 86-93 18-20 120-144/75-90 98 PHYSICAL EXAM GENERAL: The patient is awake, alert, and fully oriented, in no acute distress. HEAD: Normal with no signs of trauma. EYES: PERRL, extraocular movements intact, sclera anicteric, conjunctiva clear. ENT: Ears normal, nares patent, oropharynx clear without exudates, moist mucous membranes. NECK: Trachea midline, full range of motion, supple. LUNGS: Breath sounds equal, clear to auscultation bilaterally, no wheezes, no crackles, no accessory muscle use. HEART: Regular rate and rhythm, S1, S2 without murmur, rub or gallop. ABDOMEN: Soft, nontender, nondistended, normoactive bowel sounds, no guarding, no rebound, no hepatosplenomegaly, no masses. EXTREMITIES: 2+ pulses, warm, well-perfused, no edema. NEUROLOGICAL: Cranial nerves II through XII grossly intact. Normal speech, gait not observed. PSYCH: Normal mood, normal affect. SKIN: Warm, dry, normal turgor, no rashes or lesions noted. LABS Laboratory Results - last 24 hr 03/06/19 03/06/19 08:37 08:37 WBC 4.1 RBC 3.90 L Hgb 12.6 Hct 37.6 MCV 96.5 H MCH 32.2 MCHC 33.4 RDW 16.5 H Plt Count 111 L MPV 9.0 Absolute Neuts (auto) 3.3 Neutrophils % 80.7 Lymphocytes % 10.1 D Monocytes % 7.7 Eosinophils % 0.8 D Basophils % 0.7 D Nucleated RBC % 0 Potassium 3.3 L HOSPITAL COURSE: Date of Admission:03/04/19 Date of Discharge: 03/06/19 Discharge Summary Reason For Visit: OBSTRUCTION TO URINARY OUTFLOW Condition: Stable - Instructions Diet, Activity, Other Instructions: You came in for abdominal pain and inability to pass urine. We inserted a [place]ledo observed for urine output and bleeding. We started you on a new medication, Flomax 0.4mg ONCE a day at night. Please take as prescribed Please resume taking your Eliquis at home as it was prescribed Pleas resume all your other medications as prescribed. We noticed a growth on your back shoulder, you mentioned you have an appointment with Dr. Moscoso, your maintenance director. Please follow up with him for evaluation and possible biopsy. Please follow up with your PCP, Dr. Recio in 1 week. Please follow up with your Urologist, Dr. Anand within 1 week for further management of your Tol[place] Please return to the ER if you are experiencing inability to urinate, notice blood in your urine, worsening abdominal pain, fevers chills, or any concerning symptoms. Referrals: Bradley Brito MD [Staff Physician] - 1 Week Mahesh Anand MD [Staff Physician] - 1 Week Christoph Recio MD [Primary Care Provider] - 1 Week Disposition: HOME - Home Medications Comprehensive Discharge Medication List: Ambulatory Orders Apixaban [Eliquis] 5 mg PO BID 05/19/15 Aspirin [Ecotrin] 81 mg PO DAILY 05/19/15 Carvedilol 25 mg PO BID 05/19/15 Finasteride 5 mg PO DAILY 05/19/15 Allopurinol 400 mg PO DAILY 08/28/15 Furosemide [Lasix -] 40 mg PO DAILY #14 tablet 01/06/19 Sacubitril/Valsartan [Entresto 97 mg-103 mg Tablet] 1 tab PO BID #60 tablet Simvastatin 40 mg PO HS 01/06/19 Spironolactone [Aldactone -] 50 mg PO DAILY #28 tablet 01/06/19 Tamsulosin HCl [Flomax] 0.4 mg PO HS #30 cap.er.24h 03/06/19 - Discharge Referral Referred to [facility] Med P.C.: No
== END 2019-03-06 11:52 | disposition home or self-care (01) ==
LOC: JER 07:25 → JERBED 11:59 → UNDOADMIN 11:59 → JASUSAT 14:07 → J8W 14:59 → JASUSAT 03-06 11:52
PROVIDERS: ATTEND Urology
PROC: 0T9B80Z Drainage of Bladder with Drainage Device, Via Natural or Artificial Opening Endoscopic (ICD-10-PCS; principal; 2019-03-04 12:37)
DX: N40.1 Benign prostatic hyperplasia with lower urinary tract symptoms (principal); R33.8 Other retention of urine; N32.89 Other specified disorders of bladder
CPT/HCPCS: 36415; 71045-TC-FY; 80053; 84132; 85025; 85027; 93005; 93010; 94760; 99285-25; J0131

== ENCOUNTER 2019-04-06 11:39 | Day surgery (SDC) | payer BC, OTHER ==
[2019-04-05 18:22] VITALS: BMI 26.1
--- NOTE | 2019-04-06 13:23 | HP ---
History & Physical Update - History History: No Change - Physical Physical: No Change - Assessment Assessment: No Change - Plan Plan: No Change (03/22/2019)
[2019-04-06] MEDS ORDERED: ACETAMINOPHEN 1000 MG/100 ML VIAL (NON FORMULARY) IVPB ONE (13:27)
[2019-04-06] MEDS ORDERED: IBUPROFEN 800 MG/8 ML IJ IVPB SCH (13:30)
[2019-04-06] MEDS ORDERED: DEXTROSE 5%-0.45% SALINE 1,000 ML IV SCH (13:30)
[2019-04-06] MEDS ORDERED: SUCCINYLCHOLINE CHLORIDE 200 MG/10 ML VIAL ONE (13:47)
[2019-04-06] MEDS ORDERED: PROPOFOL 20 ML ONE ×2 (13:47)
[2019-04-06] MEDS ORDERED: ceFAZolin SODIUM 1 GM VIAL IVPB ONE (13:59)
[2019-04-06] MEDS ORDERED: ePHEDrine SULFATE 50 MG/1 ML AMPULE ONE (14:07)
[2019-04-06] MEDS ORDERED: DESFLURANE GAS 240 ML BOTTLE IH ONE (14:35)
[2019-04-06] MEDS ORDERED: ACETAMINOPHEN INJECTION 100 ML IVPB ONE (15:19)
[2019-04-06] MEDS ORDERED: oxyCODONE HCL 5 MG TABLET PO PRN (15:31)
[2019-04-06] MEDS ORDERED: ONDANSETRON 4 MG/2 ML VIAL IVPUSH PRN (15:31)
[2019-04-06] MEDS ORDERED: LACTATED RINGERS SOLUTION 1,000 ML IV SCH (15:45)
[2019-04-06 16:55] VITALS: PULSE 72; TEMP 97.2
[2019-04-06 17:40] VITALS: BP 110/64
--- NOTE | 2019-04-12 11:17 | PATH ---
Surgical Pathology Report Patient Name: CHINO ADAMS [facility]. Rec. #: [id number] /Age/Gender: 1950 (Age: 68) / M Account: [id number] Location: U SURGICAL Taken: 04/06/2019 Received: 04/07/2019 Reported: 04/12/2019 Physicians: Curly Luna M.D. Specimen(s) Received PROSTATE BIOPSY Clinical History Urinary retention and BPH Final Diagnosis PROSTATE TISSUE, BIOPSY: ADENOCARCINOMA, GRADE GROUP 5 (CLEO SCORE 4+5=9). TUMOR INVOLVES 90% OF TISSUE, MEASURING 7 MM IN GREATEST MICROSCOPIC DIMENSION. SEE COMMENT. Comment: The tumor is positive for AMACR (P504S), while negative for HMW cytokeratin, p63, Pax8, and chromogranin. Rare positive staining with synaptophysin is noted, consistent with focal neuroendocrine differentiation. Thermal artifact is noted. Findings discussed with Dr. Anand. Immunohistochemical stains for p63, chromogranin and synaptophysin performed and interpreted at [facility]. Immunohistochemical stains for AMACR (P504S), HMW cytokeratin, and Pax8 performed at [place], [place] ([id number]) and interpreted at [facility]. Positive and negative controls (internal if applicable) show appropriate results. Electronically Signed Sunshine Perry M.D. Gross Description Received in formalin, labeled "prostate tissue for biopsy" is a brown, irregular portion of soft tissue measuring 0.8 x 0.5 x 0.3 cm. The specimen is bisected and entirely submitted in toto in one cassette. MLSZ/04/07/2019 sanml/04/07/2019
--- NOTE | 2019-04-13 18:05 | OP ---
DATE OF OPERATION: 04/06/2019 PREOPERATIVE DIAGNOSIS: Urinary retention. POSTOPERATIVE DIAGNOSIS: Urinary retention. PROCEDURE: GreenLight laser prostatectomy and prostate biopsy. ANESTHESIA: General. SURGEON: Curly Luna MD ESTIMATED BLOOD LOSS: Minimal. PREOPERATIVE INDICATIONS: The patient is a 68-year-old male who has urinary retention. He comes to the OR today for GreenLight laser ablation of the enlarged prostate. The patient also has a very elevated PSA, and a prostate biopsy will be performed. OPERATION: The patient was brought to the OR, placed on the table in the supine position, given general anesthesia and IV antibiotics, and placed in the modified lithotomy position. The groin was prepped and draped sterilely. Cystoscopy was performed. The urethra appeared to be unremarkable. The sphincter was seen. The prostate tissue was obstructive. The bladder itself had some trabeculations throughout, no tumors or stones were seen, both UOs were visualized. Using the GreenLight laser, first a small piece of prostate tissue was carved out and sent for histopathological examination. Then, a laser prostatectomy was performed, with all the prostatic tissue being vaporized using GreenLight laser, from the bladder neck to the area just proximal to the verumontanum. At the end of the case, there was an open fossa, there was good hemostasis, and no evidence of bladder injury or sphincter injury. Sal catheter was left in place. The patient was woken up. CURLY LUNA M.D. [id number]
== END 2019-04-06 17:58 | disposition home or self-care (01) ==
LOC: JASU-SURG 11:39
PROVIDERS: ATTEND Urology
PROC: 0VT08ZZ Resection of Prostate, Via Natural or Artificial Opening Endoscopic (ICD-10-PCS; principal; 2019-04-06 15:00)
DX: N40.1 Benign prostatic hyperplasia with lower urinary tract symptoms (principal); R33.8 Other retention of urine
CPT/HCPCS: 88305-TC; 88341-TC; 88342-TC; 94760; J0131

== ENCOUNTER 2019-10-13 08:02 | Inpatient (IN) | payer BC, OTHER ==
--- NOTE | 2019-10-13 09:08 | PDOC ---
History of Present Illness - General Chief Complaint: Shortness of Breath Stated Complaint: DIFFICULTY BREATHING Time Seen by Provider: 10/13/19 08:43 History Source: Patient Exam Limitations: No Limitations Past History - Past Medical History Allergies/Adverse Reactions: Allergies Allergy/AdvReac Type Severity Reaction Status Date / Time No Known Allergies Allergy Verified 10/13/19 08:13 Home Medications: Ambulatory Orders Apixaban [Eliquis] 5 mg PO BID 05/19/15 Aspirin [Ecotrin] 81 mg PO DAILY 05/19/15 Carvedilol 25 mg PO BID 05/19/15 Finasteride 5 mg PO DAILY 05/19/15 Allopurinol 400 mg PO DAILY 08/28/15 Furosemide [Lasix -] 40 mg PO DAILY #14 tablet 01/06/19 Sacubitril/Valsartan [Entresto 97 mg-103 mg Tablet] 1 tab PO BID #60 tablet Simvastatin 40 mg PO HS 01/06/19 Spironolactone [Aldactone -] 50 mg PO DAILY #28 tablet 01/06/19 Tamsulosin HCl [Flomax] 0.4 mg PO HS #30 cap.er.24h 03/06/19 Cefuroxime Axetil [Ceftin -] 500 mg PO Q12H #20 tablet 04/06/19 Anemia: No Asthma: No Cancer: Yes (SKIN, RECENT SX TO L SIDE) Cardiac Disorders: Yes (CAD with stent, afib, pace maker, defib) CVA: No COPD: No CHF: No Dementia: No Diabetes: No GI Disorders: No Disorders: No HTN: Yes Hypercholesterolemia: Yes Liver Disease: No Seizures: No Thyroid Disease: No - Surgical History Abdominal Surgery: Yes (Right Inguinal Hernia Repair) Appendectomy: No Cardiac Surgery: Yes (CARDIAC STENTS) Cholecystectomy: No Lung Surgery: No Neurologic Surgery: No Orthopedic Surgery: Yes (Left Hip Replacement 2013) - Immunization History Immunization Up to Date: Yes - Psycho Social/Smoking Cessation Hx Smoking Status: No Smoking History: Never smoked Have you smoked in the past 12 months: No Number of Cigarettes Smoked Daily: 0 Hx Alcohol Use: Yes (OCCASIONALLY) Drug/Substance Use Hx: No Substance Use Type: None Hx Substance Use Treatment: No *Physical Exam - Vital Signs Last Vital Signs Temp Pulse Resp BP Pulse Ox 109 H 14 164/106 H 95 10/13/19 08:09 10/13/19 08:09 10/13/19 08:09 10/13/19 08:09 Medical Decision Making - Medical Decision Making 10/13/19 08:57 contact number [phone]
--- NOTE | 2019-10-13 09:23 | PDOC ---
Attending Attestation - Resident Resident Name: Cole Saucedo - ED Attending Attestation I have performed the following: I have examined & evaluated the patient, The case was reviewed & discussed with the resident, I agree w/resident's findings & plan, Exceptions are as noted - HPI HPI: 10/13/19 09:34 Mr. Milian is a 69 yo M w a hx of HTN, HLD, CAD with stent, afib (on eliquis) , systolic CHF s/p AICD on eliquis, BPH h/o urinary retention, now s/p greenlight laser ablation of prostate, found to have prostate CA (in the process of scheduling radiation), h/o gout. Pt presents to the ER with a complaint of shortness of breath for the past 2 days. Pt s/p mole removal on Wednesday (10/11/2019). He was told to hold his medications on that day. He noted that last night he developed a feeling of breathlessness/shortness of breath He could not fall asleep He noted dyspnea on exertion No chest pain, no fevers, chills, cough No increased sodium intake PMH: as above PSH: Hip replacement, PPM, stent, greenlight laser prostatectomy SH: denies smoking, alcohol, or recreational drug use. 10/14/19 09:38 - Physicial Exam PE: 10/13/19 09:23 GENERAL: The patient is in no acute distress. ENT: Ears normal, nares patent, oropharynx clear without exudates. Moist mucous membranes. No tonsillar enlargement, no exudates NECK: Normal range of motion, supple LUNGS: Breath sounds equal, clear to auscultation bilaterally. No wheezes, and no crackles. HEART:Regular rate and rhythm, normal S1 and S2 without murmur, rub or gallop. ABDOMEN: Soft, nontender, normoactive bowel sounds. EXTREMITIES: Normal range of motion, no lower extremity edema. NEUROLOGICAL: Cranial nerves II through XII grossly intact. Normal speech. No focal neurological deficits. SKIN: left neck surgical site is covered, dressing not removed. 10/14/19 09:42 - Medical Decision Making 10/13/19 09:41 EKG - V paced, rate of 75bpm, (+) PVCs similar prior EKG 10/14/19 09:47 Laboratory Tests 11/10/13/19 10/13/19 09:25 09:25 09:25 WBC 6.2 Hgb 12.7 Hct 38.4 Plt Count 124 L INR 1.53 H BUN 24.0 H Creatinine 1.3 Creatine Kinase 74 Troponin I 0.04 B-Natriuretic Peptide 14469.2 H 10/14/19 09:47 CXR- CHF, bilateral pleural effusion Lasix 40mg IV Will admit for diuresis Clinical impression: congestive heart failure, initial presentation
[2019-10-13 10:00] LABS: HEMATOCRIT 38.4 % (35.4-49); HEMOGLOBIN 12.7 GM/dL (11.7-16.9); MCH 31.8 pg (25.7-33.7); MEAN CELL VOLUME 96.4 fl (80-96); MEAN PLT VOLUME 9.6 fl (7.5-11.1); PLATELET COUNT 124 K/MM3 (134-434); RBC 3.98 M/mm3 (4.00-5.60); RDW 14.8 % (11.9-15.9); WHITE BLOOD COUNT 6.2 K/mm3 (4.0-10.0)
[2019-10-13 10:07] LABS: ALBUMIN 3.1 g/dl (3.4-5.0); CALCIUM 8.8 mg/dL (8.5-10.1); CREATININE 1.3 mg/dL (0.55-1.3); MAGNESIUM 1.8 mg/dL (1.8-2.4); N-TERMINAL BNP 23861.2 pg/ml (5-125); PHOSPHOROUS 3.6 mg/dL (2.5-4.9); POTASSIUM 3.9 mmol/L (3.5-5.1); TOT PROT 7.5 g/dl (6.4-8.2)
[2019-10-13 10:19] LABS: INR 1.53 (0.83-1.09); PROTHROMBIN TIME (PATIENT) 18.1 SEC (9.7-13.0)
[2019-10-13] MEDS ORDERED: FUROSEMIDE 40 MG/4 ML INJECTABLE VIAL IVPUSH ONE ×2 (10:35→18:00)
[2019-10-13] MEDS ORDERED: FUROSEMIDE 40 MG/4 ML INJECTABLE VIAL ONE (10:41)
--- NOTE | 2019-10-13 10:46 | PDOC ---
History of Present Illness - General Chief Complaint: Shortness of Breath Stated Complaint: DIFFICULTY BREATHING Time Seen by Provider: 10/13/19 08:43 History Source: Patient Exam Limitations: No Limitations - History of Present Illness Initial Comments: 10/13/19 10:40 69 yo male pmh of HTN, HLD, CAD with stent, afib (on eliquis), CHF s/p AICD on eliquis, BPH h/o urinary retention, now s/p greenlight laser ablation of prostate, h/o gout presents to the ED with 1 day of SOB worse on exertion. Pt s/ p left neck skin CA removal 2 days, did not take lasix yesterday. Pt had medication dosage of lasix and spirinolactone reduced in March. Pt admits to SOB last night made worse with walking a few steps. Denies recent illness, sick contacts, URI symptoms, F/C/N/V, CP, abdominal pain, calf tenderness or recent travel Past History - Past Medical History Allergies/Adverse Reactions: Allergies Allergy/AdvReac Type Severity Reaction Status Date / Time No Known Allergies Allergy Verified 10/13/19 08:13 Home Medications: Ambulatory Orders Apixaban [Eliquis] 5 mg PO BID 05/19/15 Aspirin [Ecotrin] 81 mg PO DAILY 05/19/15 Carvedilol 25 mg PO BID 05/19/15 Finasteride 5 mg PO DAILY 05/19/15 Allopurinol 400 mg PO DAILY 08/28/15 Sacubitril/Valsartan [Entresto 97 mg-103 mg Tablet] 1 tab PO BID #60 tablet Simvastatin 40 mg PO HS 01/06/19 Tamsulosin HCl [Flomax] 0.4 mg PO HS #30 cap.er.24h 03/06/19 Furosemide [Lasix -] 20 mg PO DAILY 10/13/19 Spironolactone [Aldactone -] 25 mg PO DAILY 10/13/19 Anemia: No Asthma: No Cancer: Yes (SKIN, RECENT SX TO L SIDE) Cardiac Disorders: Yes (CAD with stent, afib, pace maker, defib) CVA: No COPD: No CHF: No Dementia: No Diabetes: No GI Disorders: No Disorders: No HTN: Yes Hypercholesterolemia: Yes Liver Disease: No Seizures: No Thyroid Disease: No - Surgical History Abdominal Surgery: Yes (Right Inguinal Hernia Repair) Appendectomy: No Cardiac Surgery: Yes (CARDIAC STENTS) Cholecystectomy: No Lung Surgery: No Neurologic Surgery: No Orthopedic Surgery: Yes (Left Hip Replacement 2013) - Immunization History Immunization Up to Date: Yes - Psycho Social/Smoking Cessation Hx Smoking Status: No Smoking History: Never smoked Have you smoked in the past 12 months: No Number of Cigarettes Smoked Daily: 0 Hx Alcohol Use: Yes (OCCASIONALLY) Drug/Substance Use Hx: No Substance Use Type: None Hx Substance Use Treatment: No Review of Systems - Review of Systems Constitutional: No: Chills, Fever Respiratory: Yes: Shortness of Breath, SOB with Exertion Cardiac (ROS): No: Chest Pain, Edema ABD/GI: No: Constipated, Diarrhea, Nausea, Vomiting : No: Burning, Dysuria, Frequency, Flank Pain Integumentary: No: Pallor Neurological: No: Headache, Numbness, Paresthesia *Physical Exam - Vital Signs Last Vital Signs Temp Pulse Resp BP Pulse Ox 109 H 14 164/106 H 95 10/13/19 08:09 10/13/19 08:09 10/13/19 08:09 10/13/19 08:09 - Physical Exam General Appearance: Yes: Nourished, Appropriately Dressed. No: Apparent Distress HEENT: positive: EOMI Neck: positive: Supple. negative: Carotid bruit Respiratory/Chest: positive: Lungs Clear, Normal Breath Sounds. negative: Respiratory Distress, Accessory Muscle Use, Crackles, Rales, Rhonchi, Stridor, Wheezing Cardiovascular: positive: Regular Rhythm, S1, S2, Tachycardia. negative: Edema , JVD, Murmur Vascular Pulses: Dorsalis-Pedis (R): 4+, Doralis-Pedis (L): 4+ Gastrointestinal/Abdominal: positive: Flat, Soft. negative: Protuberent, Distended, Guarding, Rebound, Tenderness Musculoskeletal: negative: CVA Tenderness Extremity: positive: Normal Capillary Refill, Normal Inspection, Normal Range of Motion. negative: Pedal Edema, Calf Tenderness Integumentary: positive: Normal Color, Dry, Warm Neurologic: positive: Fully Oriented, Alert, Normal Mood/Affect, Normal Response , Motor Strength 5/5 ED Treatment Course - LABORATORY CBC & Chemistry Diagram: 10/14/19 06:40 10/14/19 06:40 - ADDITIONAL ORDERS Additional order review: Laboratory Results 10/13/19 10/13/19 09:25 09:25 PT with INR 18.10 H INR 1.53 H Sodium 140 Potassium 3.9 Chloride 108 H Carbon Dioxide 25 Anion Gap 7 L BUN 24.0 H Creatinine 1.3 Est GFR (CKD-EPI)AfAm 63.62 Est GFR (CKD-EPI)NonAf 54.90 Random Glucose 137 H Calcium 8.8 Phosphorus 3.6 Magnesium 1.8 Total Bilirubin 1.0 AST 33 ALT 26 Alkaline Phosphatase 158 H Creatine Kinase 74 Troponin I 0.04 B-Natriuretic Peptide 78675.2 H Total Protein 7.5 Albumin 3.1 L 10/13/19 09:25 RBC 3.98 L MCV 96.4 H MCHC 33.0 RDW 14.8 D MPV 9.6 - RADIOLOGY Radiology Studies Ordered: Category Date Time Status CHEST X-RAY PORTABLE* [RAD] Stat Radiology 10/13/19 08:59 Completed Medical Decision Making - Medical Decision Making 10/13/19 13:56 69 yo male pmh of HTN, HLD, CAD with stent, afib (on eliquis), CHF s/p AICD on eliquis, BPH h/o urinary retention, now s/p greenlight laser ablation of prostate, h/o gout presents to the ED with 1 day of SOB worse on exertion. Pt s/ p left neck skin CA removal 2 days, did not take lasix yesterday. Pt had medication dosage of lasix and spirinolactone reduced in March. Pt admits to SOB last night made worse with walking a few steps. Denies recent illness, sick contacts, URI symptoms, F/C/N/V, CP, abdominal pain, calf tenderness or recent travel vitals show elevated HR 109 and systolic in the 160s pt becomes SOB with ambulation with saturation dropping from 98 to 93% 40 mg IV lasixs given BNP 23xxx, trops neg, CXR indicts small pleural effusion Pt accepted for admission to tele Discharge - Discharge Information Problems reviewed: Yes Clinical Impression/Diagnosis: CHF exacerbation Qualifiers: Heart failure type: combined systolic and diastolic Qualified Code(s): I50.43 - Acute on chronic combined systolic (congestive) and diastolic (congestive) heart failure Condition: Stable - Admission Yes - Follow up/Referral - Patient Discharge Instructions - Post Discharge Activity
--- NOTE | 2019-10-13 13:22 | HP ---
<Emma Johnson - Last Filed: 10/13/19 13:35> Hospitalist Medicine Admission 69 y/o M with PMH HTN, HLD, CAD s/p PCI, stent, afib (on eliquis), chronic systolic CHF s/p AICD, BPH, s/p greenlight ablation, prostate CA (to start radiation 11[place]2019 [place] [facility] Dias), who presents for two-day hx SOB. Per pt, on Wednesday (10/11/2019), he had a surgery and bx for a "cancerous mole" on his L cheek. States that it was done by Dr. Jordan in [place]. For this reason, he did not take his eliquis and his lasix that day. States that the following day, he had "abdominal discomfort" thus he did not take the lasix then as well. At baseline, alternates between doses of 20mg and 40mg based on his sx. Usually does not develop edema when he is in exacerbation. Follows with Dr. El. Denies additional sx; without GRIDER, fever, chills, chest pain or pressure or changes in urinary or bowel function. No new dietary changes. Does not use 02 at baseline. Of note, pt is to start tx for his prostate CA in 11/2019 at [facility], [place] with Dr. Dias. States he will need 5 weeks of radiation. Previously, was receiving "injections" to "prevent the CA from spreading." Denies mets. At baseline, ambulates on own independently. Lives with at home. In the ER, pt received 40mg lasix IVPx1. PMH: as above PsxH: Joint Replacement (left hip), Permanent Pacemaker, Stent meds: as in chart. pt has list, verified. pharmacy list is different and not accurate. allergies: NKDA FH: denies SH: denies smoking, alcohol, or recreational drug use. PHYSICAL EXAMINATION Vital Signs - 24 hr 10/13/19 10/13/19 08:09 10:45 Temperature 98.2 F Pulse Rate 109 H Pulse Rate [ 94 H Apical] Respiratory 14 20 Rate Blood Pressure 164/106 H Blood Pressure 169/109 H [Right Arm] O2 Sat by Pulse 95 96 Oximetry (%) General: sitting comfortably on edge of bed. in NAD. on 2L NC 02, sat 96% HEENT: NCAT, +gauze over L cheek, c/d/i neck: supple. +mild JVD cardio: +irreg, irreg. no r/m/g Pulm: +bibasilar crackles. no accessory m usage abdomen: obese, nontender, nondistended LE: without edema . pulses intact Laboratory Results 10/13/19 10/13/19 10/13/19 09:25 09:25 09:25 WBC 6.2 RBC 3.98 L Hgb 12.7 Hct 38.4 MCV 96.4 H MCH 31.8 MCHC 33.0 RDW 14.8 D Plt Count 124 L MPV 9.6 PT with INR 18.10 H INR 1.53 H Sodium 140 Potassium 3.9 Chloride 108 H Carbon Dioxide 25 Anion Gap 7 L BUN 24.0 H Creatinine 1.3 Est GFR (CKD-EPI)AfAm 63.62 Est GFR (CKD-EPI)NonAf 54.90 Random Glucose 137 H Calcium 8.8 Phosphorus 3.6 Magnesium 1.8 Total Bilirubin 1.0 AST 33 ALT 26 Alkaline Phosphatase 158 H Creatine Kinase 74 Troponin I 0.04 B-Natriuretic Peptide 89373.2 H Total Protein 7.5 Albumin 3.1 L Imaging CXR: enlarged heart, L sided ICD, increased interstitial markings, diffusely consistent with a mild degree of acute pulmonary vascular congestion. there is slight haziness at the lung bases suspicious for small pleural effusions EKG: ordered. requested, pending ECHO 12/2018: severe global hypokinesis, LA moderately dilated, trace TR ASSESSMENT/PLAN: 69 y/o M with PMH HTN, HLD, CAD s/p PCI, stent, afib (on eliquis), chronic systolic CHF s/p AICD, BPH, s/p greenlight ablation, prostate CA (to start radiation 11/2019 at [facility], [place]. Dias), who presents for two-day hx SOB. Admitted for acute CHF exacerbation. #Acute on chronic systolic CHF exacerbation -likely 2/2 recent noncompliance post-procedure -c/w lasix 40mg IVP BID -f/u strict i/o, daily wts, na control 2g -repeat ECHO. last done 12/2018; severe global hypokinesis -c/w entresto, aldactone -Cardio consult: Dr. Brito - follows w/ patient #HTN- uncontrolled -likely 2/2 overload -restarted on coreg #hx CAD s/p PCI, stent -c/w asa #afib -currently in afib -c/w eliquis for a/c -c/w metoprolol for rate control #HLD -c/w statin #BPH -c/w proscar -c/w flomax #hx Prostate CA -follows with [facility] -to start radiation therapy for 5 weeks 11/2019 Dr. Dias is oncologist #gout -c/w allopurinol #F/E/N no IVF; CHF exacerbation continue to follow lytes; meron Mg, K na controlled diet #PPX DVT: on eliquis #Dispo admit to telemetry Visit type - Emergency Visit Emergency Visit: Yes ED Registration Date: 10/13/19 Care time: The patient presented to the Emergency Department on the above date and was hospitalized for further evaluation of their emergent condition. - New Patient This patient is new to me today: Yes Date on this admission: 10/13/19 - Critical Care Critical Care patient: No <Elias Perrin - Last Filed: 10/13/19 21:15> Seen and examinedl agree with above aside from as supplemented by myself. He presents after missed doses of his PO diuresis. 10 sys ROS done and negative aside from HPI Allergies No Known Allergies Allergy (Verified 10/13/19 08:13) HOME MEDICATIONS: Home Medications Medication Instructions Recorded Apixaban [Eliquis] 5 mg PO BID 05/19/15 Aspirin [Ecotrin] 81 mg PO DAILY 05/19/15 Carvedilol 25 mg PO BID 05/19/15 Finasteride 5 mg PO DAILY 05/19/15 Allopurinol 400 mg PO DAILY 08/28/15 Sacubitril/Valsartan [Entresto 97 1 tab PO BID #60 tablet 01/06/19 mg-103 mg Tablet] Simvastatin 40 mg PO HS 01/06/19 Tamsulosin HCl [Flomax] 0.4 mg PO HS #30 cap.er.24h 03/06/19 Furosemide [Lasix -] 20 mg PO DAILY 10/13/19 Spironolactone [Aldactone -] 25 mg PO DAILY 10/13/19 PHYSICAL EXAMINATION Vital Signs - 24 hr 10/13/19 10/13/19 10/13/19 08:09 10:45 13:16 Temperature 98.2 F 98.2 F Pulse Rate 109 H Pulse Rate [ 94 H 105 H Apical] Respiratory 14 20 20 Rate Blood Pressure 164/106 H Blood Pressure 169/109 H 153/90 [Right Arm] O2 Sat by Pulse 95 96 98 Oximetry (%) 10/13/19 19:16 Temperature 98.3 F Pulse Rate Pulse Rate [ 96 H Apical] Respiratory Rate Blood Pressure Blood Pressure 142/93 [Right Arm] O2 Sat by Pulse 97 Oximetry (%) GENERAL: Awake, alert, and fully oriented, in no acute distress. HEAD: Normal with no signs of trauma. EYES: Pupils equal, round and reactive to light, extraocular movements intact, sclera anicteric, conjunctiva clear. No lid lag. EARS, NOSE, THROAT: Ears normal, nares patent, oropharynx clear without exudates. Moist mucous membranes. NECK: Normal range of motion, supple without lymphadenopathy, +JVD, no masses. LUNGS: Breath sounds equal, clear to auscultation bilaterally. No wheezes, and no crackles. No accessory muscle use. HEART: Regular rate and rhythm, normal S1 and S2 ABDOMEN: Soft, nontender, not distended, normoactive bowel sounds MUSCULOSKELETAL: Normal range of motion at all joints. No bony deformities or tenderness. NEUROLOGICAL: Cranial nerves II-XII intact. Normal speech. Normal gait. PSYCHIATRIC: Cooperative. Good eye contact. Appropriate mood and affect. SKIN: Warm, dry, normal turgor, no rashes or lesions noted, normal capillary refill. Laboratory Results - last 24 hr 10/13/19 10/13/19 10/13/19 09:25 09:25 09:25 WBC 6.2 RBC 3.98 L Hgb 12.7 Hct 38.4 MCV 96.4 H MCH 31.8 MCHC 33.0 RDW 14.8 D Plt Count 124 L MPV 9.6 PT with INR 18.10 H INR 1.53 H Sodium 140 Potassium 3.9 Chloride 108 H Carbon Dioxide 25 Anion Gap 7 L BUN 24.0 H Creatinine 1.3 Est GFR (CKD-EPI)AfAm 63.62 Est GFR (CKD-EPI)NonAf 54.90 Random Glucose 137 H Calcium 8.8 Phosphorus 3.6 Magnesium 1.8 Total Bilirubin 1.0 AST 33 ALT 26 Alkaline Phosphatase 158 H Creatine Kinase 74 Troponin I 0.04 B-Natriuretic Peptide 15317.2 H Total Protein 7.5 Albumin 3.1 L 10/13/19 17:15 WBC RBC Hgb Hct MCV MCH MCHC RDW Plt Count MPV PT with INR INR Sodium Potassium Chloride Carbon Dioxide Anion Gap BUN Creatinine Est GFR (CKD-EPI)AfAm Est GFR (CKD-EPI)NonAf Random Glucose Calcium Phosphorus Magnesium Total Bilirubin AST ALT Alkaline Phosphatase Creatine Kinase Troponin I 0.07 H B-Natriuretic Peptide Total Protein Albumin EKG reviewed ER telemetry reviewed Old records reviewed Studies per CV doocuentation reviewed: (Pe 09/21/2019 Device interrogation: A paced 0%, RV paced 60%, LV paced 95%, battery life 7.5 years, 2 episodes of NSVT 05/31/2018 Lexiscan Myoview: Moderate-large size inferior, inferolateral ischemia, anterobasal mild ischemia, dilated LV with severe global HK 27% 01/05/2019 Echo: Severely decreased LV fxn with normal RV size and fxn, mod DANIS , mild-mod MR, tr TR, AL 12/09/2017 Echo: Dilated LV with severe decreased LVEF 25-30%, severe LAE, mild ANTONINO, normal RV size with mild-mod decreased LV systolic function, defibrillator lead seen mod MR, TR RVSP 37.9 mmHg ASSESSMENT/PLAN: Presents with HFrEF exacerbation 2/2 missed diuretic dose; IV diuresis, CV consult, strict Is and Os. Recent pacer interrogation noted. Desaturated in the ER on RA when ambulating per my conversation with Dr. Saucedo. Overall will require inpatient care due to the severity of his underlying CHF. -Acute Systolic CHF exacerbation. Continue IV lasix, entresto, BB -Persistent Afib on eliquis, BB -Uncontrolled HTN, management per CV as OP. -CKD -Hx Prostate CA (FU w/ OP onc-he informs us the he is with ERNESTO) -HLD on statin; OP lipid profile -CKD, monitoring BMP and elytes -Hx BPH on tams -FU on recent path ATTENDING PHYSICIAN STATEMENT I saw and evaluated the patient. I reviewed the resident's note and discussed the case with the resident. I agree with the resident's findings and plan as documented. SUBJECTIVE: OBJECTIVE: ASSESSMENT AND PLAN:
--- NOTE | 2019-10-13 15:49 | CON.CARD ---
Consult Consult Specialty:: Cardiology Referred by:: Hospitalist Medicine Reason for Consultation:: Acute on chronic systolic heart failure - History of Present Illness Chief Complaint: Dyspnea History of Present Illness: 69-year-old male with h/o CAD s/p CAROLEE LAD 01/17/2004, angina pectoris, LV systolic dysfunction (LVEF 25-30%) s/p ICD with h/o failure, persistent atrial fibrillation on NOAC, HTN, hyperlipidemia, BPH, s/p greenlight ablation, prostate CA (to start radiation 11/2019 at [facility], Dr. Dias) last office visit 2018 presents with two-day hx SOB on exertion, orthopnea, had held Lasix last Wednesday for left facial Moh's surgery, did not take any meds yesterday due to upset stomach. He denies chest pain , near or true syncope, palpitations, PND, LE edema, diet indiscretion or NSAID use, received Lasix 40 IV with improvement in sxs. - History Source History Provided By: Patient Limitations to Obtaining History: No Limitations - Past Medical History Cardio/Vascular: Yes: AFIB, CAD, CHF, Hyperlipdemia Renal/: Yes: BPH - Past Surgical History Past Surgical History: Yes: Joint Replacement (left hip), Permanent Pacemaker, Stent - Alcohol/Substance Use Hx Alcohol Use: Yes (OCCASIONALLY) - Smoking History Smoking history: Never smoked Have you smoked in the past 12 months: No Aproximately how many cigarettes per day: 0 - Social History ADL: Independent Home Medications - Allergies Allergies/Adverse Reactions: Allergies Allergy/AdvReac Type Severity Reaction Status Date / Time No Known Allergies Allergy Verified 10/13/19 08:13 - Home Medications Home Medications: Ambulatory Orders Apixaban [Eliquis] 5 mg PO BID 05/19/15 Aspirin [Ecotrin] 81 mg PO DAILY 05/19/15 Carvedilol 25 mg PO BID 05/19/15 Finasteride 5 mg PO DAILY 05/19/15 Allopurinol 400 mg PO DAILY 08/28/15 Sacubitril/Valsartan [Entresto 97 mg-103 mg Tablet] 1 tab PO BID #60 tablet Simvastatin 40 mg PO HS 01/06/19 Tamsulosin HCl [Flomax] 0.4 mg PO HS #30 cap.er.24h 03/06/19 Furosemide [Lasix -] 20 mg PO DAILY 10/13/19 Spironolactone [Aldactone -] 25 mg PO DAILY 10/13/19 Review of Systems - Review of Systems Respiratory: reports: Orthopnea, SOB, SOB on Exertion Vital Signs: Vital Signs Temperature 98.2 F 10/13/19 13:16 Pulse Rate 105 H 10/13/19 13:16 Respiratory Rate 20 10/13/19 13:16 Blood Pressure 153/90 10/13/19 13:16 O2 Sat by Pulse Oximetry (%) 98 10/13/19 13:16 Constitutional: Yes: No Distress, Calm Neck: Yes: Supple Respiratory: Yes: Regular, Diminished, On Nasal O2 Gastrointestinal: Yes: Normal Bowel Sounds, Soft Cardiovascular: Yes: Regular Rate and Rhythm JVD: No Carotid Bruit: No Heart Sounds: Yes: S1, S2 Murmur: Yes: Systolic Murmur, Grade 1 Edema: No - Other Data Labs, Other Data: CBC, BMP 10/13/19 09:25 10/13/19 09:25 INR, PTT INR 1.53 (0.83-1.09) H 10/13/19 09:25 Troponin, BNP 10/13/19 09:25 Troponin I 0.04 B-Natriuretic Peptide 76242.2 H Troponin, BNP 10/13/19 09:25 Troponin I 0.04 B-Natriuretic Peptide 19415.2 H V-paced freq PVC Ejection Fraction %: LVEF < 40 % (V-paced) Imaging - Results Chest X-ray: Report Reviewed (Mild CHF, pleural effusions) Problem List - Problems (1) Biventricular automatic implantable cardioverter defibrillator in situ Code(s): Z95.810 - PRESENCE OF AUTOMATIC (IMPLANTABLE) CARDIAC DEFIBRILLATOR (2) CHF exacerbation Code(s): I50.9 - HEART FAILURE, UNSPECIFIED Qualifiers: Heart failure type: combined systolic and diastolic Qualified Code(s): I50.43 - Acute on chronic combined systolic (congestive) and diastolic ( congestive) heart failure (3) CAD (coronary atherosclerotic disease) Code(s): I25.10 - ATHSCL HEART DISEASE OF [place] CORONARY ARTERY W/O ANG PCTRS Qualifiers: Coronary Disease-Associated Artery/Lesion type: unspecified vessel or lesion type [place] vs. transplanted heart: [place] heart Associated angina: with unspecified angina Qualified Code(s): I25.119 - Atherosclerotic heart disease of [place] coronary artery with unspecified angina pectoris (4) Chronic atrial fibrillation Code(s): I48.2 - CHRONIC ATRIAL FIBRILLATION * DO NOT USE * (5) HTN (hypertension) Code(s): I10 - ESSENTIAL (PRIMARY) HYPERTENSION Qualifiers: Hypertension type: essential hypertension Qualified Code(s): I10 - Essential (primary) hypertension (6) Hyperlipemia Code(s): E78.5 - HYPERLIPIDEMIA, UNSPECIFIED Qualifiers: Hyperlipidemia type: pure hypercholesterolemia Qualified Code(s): E78.00 - Pure hypercholesterolemia, unspecified; E78.0 - Pure hypercholesterolemia (7) S/P coronary artery stent placement Code(s): Z95.5 - PRESENCE OF CORONARY ANGIOPLASTY IMPLANT AND GRAFT (8) Shortness of breath Code(s): R06.02 - SHORTNESS OF BREATH Assessment/Plan 09/21/2019 Device interrogation: A paced 0%, RV paced 60%, LV paced 95%, battery life 7.5 years, 2 episodes of NSVT 05/31/2018 Lexiscan Myoview: Moderate-large size inferior, inferolateral ischemia, anterobasal mild ischemia, dilated LV with severe global HK 27% 01/05/2019 Echo: Severely decreased LV fxn with normal RV size and fxn, mod DANIS , mild-mod MR, tr TR, [place] 12/09/2017 Echo: Dilated LV with severe decreased LVEF 25-30%, severe LAE, mild ANTONINO, normal RV size with mild-mod decreased LV systolic function, defibrillator lead seen mod MR, TR RVSP 37.9 mmHg 1. Acute on chronic LV systolic failure LVEF 25-30% s/p HORSE RACER-D (Sinan Sci) 2. Persistent atrial fibrillation [id number] on NOAC 3. CAD s/p PCI (stent), subendocardial ischemia 4. Hypertension/HCVD, BP not at goal control 5. Hyperlipidemia 6. CKD 7. Prostate cancer f/u rad onc [facility] P:1. IV diuresis with monitor diuretic response, renal fxn and electrolytes 2. Contine Eliquis 5 bid, carvedilol 25 bid, Entresto 49-51 bid, Lipitor 20 qhs , and Aldactone 25 qd 3. Patient to f/u with Dr. Brito upon d/c , emphasized importance of medication and diet compliance 4. Thank you for consultative opportunity
[2019-10-13] MEDS: TAMSULOSIN HCL 0.4 MG CAP PO SCH (21:01)
[2019-10-13] MEDS: APIXABAN 5 MG TABLET PO SCH (21:01)
[2019-10-13] MEDS: CARVEDILOL 25 MG TABLET (FP) PO SCH (21:01)
[2019-10-13] MEDS: ATORVASTATIN CA 20 MG TABLET (FP) PO SCH (21:01)
[2019-10-13] MEDS: SACUBITRIL/VALSARTAN 97 MG-103 MG TABLET PO SCH (21:25)
[2019-10-13] MEDS ORDERED: PT OWN MED DRAWER 7, Y5N ONE (22:19)
[2019-10-13 22:40] VITALS: BMI 25.6
--- NOTE | 2019-10-13 23:36 | EKG ---
Test Reason : Blood Pressure : / mmHG Vent. Rate : 111 BPM Atrial Rate : 110 BPM P-R Int : 000 ms QRS Dur : 174 ms QT Int : 462 ms P-R-T Axes : 000 092 -49 degrees QTc Int : 628 ms Ventricular-paced rhythm WITH OCCASIONAL AV dual-paced complexes AND WITH FREQUENT PREMATURE VENTRICULAR COMPLEXES ABNORMAL ECG WHEN COMPARED WITH ECG OF 04-MAR-2019 07:41, PREMATURE VENTRICULAR COMPLEXES ARE NOW PRESENT VENT. RATE HAS INCREASED BY 5 BPM Confirmed by MD Miguel Angel, Isai ([id number]) on 10/13/2019 11:35:38 PM Referred By: Confirmed By:Isai Michelle MD
--- NOTE | 2019-10-14 07:12 | PN ---
Progress Note (short form) - Note Progress Note: Chief Complaint: Events noted, notes reviewed, denies any chest pain, dyspnea persists but improved History of Present Illness: Seen and examined on telemetry. Events noted, notes reviewed, denies any chest pain, dyspnea persists but improved Patient reported poor compliance with therapy administration for 2 days post procedure - Current Medication List Current Medications Allopurinol (Zyloprim -) 400 mg PO DAILY [facility] Apixaban (Eliquis -) 5 mg PO BID [facility] Last Admin: 10/13/19 21:01 Dose: 5 mg Aspirin (Ecotrin -) 81 mg PO DAILY [facility] Atorvastatin Calcium (Lipitor -) 20 mg PO HS [facility] Last Admin: 10/13/19 21:01 Dose: 20 mg Carvedilol (Coreg -) 25 mg PO BID [facility] [place] Last Admin: 10/13/19 21:01 Dose: 25 mg Finasteride (Proscar -) 5 mg PO DAILY [facility] [place] Furosemide (Lasix Injection -) 40 mg IVPUSH DAILY [facility] [place] Sacubitril/Valsartan (Entresto 97 Mg-103 Mg Tablet) 1 tab PO BID [facility] Last Admin: 10/13/19 21:25 Dose: 1 tab Spironolactone (Aldactone -) 25 mg PO DAILY [facility] [place] Tamsulosin HCl (Flomax -) 0.4 mg PO HS [facility] Last Admin: 10/13/19 21:01 Dose: 0.4 mg Review of Systems Cardiovascular: As noted above Respiratory: denies: Cough or Sputum Production Gastrointestinal: denies: Nausea, Vomiting, Diarrhea, Constipation or Abdominal Discomfort Musculoskeletal: No Symptoms Reported Endocrine: No Symptoms Reported` - Objective Vital Signs: Last Vital Signs Temp Pulse Resp BP Pulse Ox 98.1 F 88 17 147/90 98 10/14/19 05:00 10/14/19 05:00 10/14/19 05:00 10/14/19 05:00 10/13/19 22:00 Intake & Output 10/11/19 10/12/19 10/13/19 10/14/19 23:59 23:59 23:59 23:59 Intake Total 350 150 Balance 350 150 Weight 194 lb 6.4 oz 191 lb 6.4 oz Neck: Supple Negative JVD No Bruit Respiratory: Clear to A&P Bilaterally Cardiovascular: S1 S2 Regular Rate and Rhythm Grade 1/6 FADI Gastrointestinal: Soft Benign Normal Bowel Sounds Ext: Trace Edema Labs: CBC, BMP 11/23/19 06:40 10/14/19 06:40 Troponin, BNP 10/13/19 10/13/19 09:25 17:15 Troponin I 0.04 0.07 H B-Natriuretic Peptide 22232.2 H CBC, BMP 10/13/19 09:25 10/13/19 09:25 Hepatic Panel Total Bilirubin 1.0 mg/dL (0.2-1) 10/13/19 09:25 AST 33 U/L (15-37) 10/13/19 09:25 ALT 26 U/L (13-61) 10/13/19 09:25 Alkaline Phosphatase 158 U/L (45-117) H 10/13/19 09:25 Albumin 3.1 g/dl (3.4-5.0) L 10/13/19 09:25 INR, PTT INR 1.53 (0.83-1.09) H 10/13/19 09:25 Assessment/Plan ASSESSMENT: 1. Acute on chronic class II-III NYHA classification LV systolic failure related to dilated non- ischemic cardiomyopathy (LVEF 25-30%) 2. CAD post PCI/stent angina pectoris 3. Persistent atrial fibrillation [id number] score of 3 on DOAC's/Eliquis 4. Hypertension/HCVD, not at goal 5. Hyperlipidemia 6. CKD 7. Hypokalemia 8. Thrombocytopenia PLAN: 1. Continue Lasix IV for an additional 24 hours with close monitoring of renal function and electrolytes- correction of Hypokalemia 2. Continue Coreg 3. Continue Entresto 4. Continue Aladactone 5. Continue Eliquis 6. If blood pressure remains elevated recommend the addition of Norvasc therapy 7. Continue Lipitor Bradley Brito M.D.
[2019-10-14 08:00] LABS: BLOOD UREA NITROGEN 26.5 mg/dL (7-18); CALCIUM 8.3 mg/dL (8.5-10.1); CREATININE 1.2 mg/dL (0.55-1.3); MAGNESIUM 1.6 mg/dL (1.8-2.4)
[2019-10-14 08:02] LABS: BASO % 0.7 % (0-2.0); EOS % 1.1 % (0-4.5); HEMATOCRIT 34.1 % (35.4-49); HEMOGLOBIN 11.4 GM/dL (11.7-16.9); LYMPH % 10.5 % (8-40); MCH 31.8 pg (25.7-33.7); MCHC 33.5 g/dl (32.0-35.9); MEAN CELL VOLUME 95.1 fl (80-96); MEAN PLT VOLUME 9.6 fl (7.5-11.1); MONO % 7.9 % (3.8-10.2); NEUT % 79.8 % (42.8-82.8); RBC 3.58 M/mm3 (4.00-5.60); RDW 14.6 % (11.9-15.9); WHITE BLOOD COUNT 4.4 K/mm3 (4.0-10.0)
[2019-10-14 08:09] LABS: PLATELET COUNT 93 K/MM3 (134-434)
--- NOTE | 2019-10-14 08:09 | PN ---
Progress Note, Physician History of Present Illness: Patient seen and examined at bedside on telemetry. Telemetry does not show any events overnight. Nursing reports no events. Patient endorses urinating a lot with the lasix IV. He states his SOB has significantly improved. He denies nausea vomiting fever chills chest pain diarrhea constipation visual changes dizziness lightheadedness or palpitations. Seen by Cardiology in consultation who agrees with the current plan. Has lost about 1.5kg from yesterday with diuresis. All systems reviewed and negative except as per above. - Current Medication List Current Medications: Active Medications Allopurinol (Zyloprim -) 400 mg PO DAILY [facility] Apixaban (Eliquis -) 5 mg PO BID [facility] Last Admin: 10/13/19 21:01 Dose: 5 mg Aspirin (Ecotrin -) 81 mg PO DAILY [facility] Atorvastatin Calcium (Lipitor -) 20 mg PO HS [facility] Last Admin: 10/13/19 21:01 Dose: 20 mg Carvedilol (Coreg -) 25 mg PO BID [facility] Last Admin: 10/13/19 21:01 Dose: 25 mg Finasteride (Proscar -) 5 mg PO DAILY [facility] Furosemide (Lasix Injection -) 40 mg IVPUSH DAILY [facility] Sacubitril/Valsartan (Entresto 97 Mg-103 Mg Tablet) 1 tab PO BID [facility] Last Admin: 10/13/19 21:25 Dose: 1 tab Spironolactone (Aldactone -) 25 mg PO DAILY [facility] Tamsulosin HCl (Flomax -) 0.4 mg PO [facility] Last Admin: 10/13/19 21:01 Dose: 0.4 mg - Objective Vital Signs: Vital Signs Temperature 98.1 F 10/14/19 05:00 Pulse Rate 88 10/14/19 05:00 Respiratory Rate 17 10/14/19 05:00 Blood Pressure 147/90 10/14/19 05:00 O2 Sat by Pulse Oximetry (%) 98 10/13/19 22:00 Constitutional: Yes: Well Nourished, No Distress, Calm Eyes: Yes: EOM Intact HENT: Yes: Atraumatic, Normocephalic Neck: Yes: Supple Cardiovascular: Yes: Pulse Irregular, S1, S2 Respiratory: Yes: Regular, CTA Bilaterally Gastrointestinal: Yes: WNL, Soft. No: Distention, Tenderness Genitourinary: No: CVA Tenderness - Left, CVA Tenderness - Right Edema: No Wound/Incision: Yes: Other (left cheeck wound dressing C/D/I) Neurological: Yes: Alert Labs: CBC, BMP 10/14/19 06:40 INR, PTT INR 1.53 (0.83-1.09) H 10/13/19 09:25 - ....Imaging X-ray: Report Reviewed, Image Reviewed (consistent with CHF) Impression/Plan Impression/Plan: 69M with multiple medical problems including HTN, HLD, CAD s/p PCI, stent, afib (on eliquis), chronic systolic CHF s/p AICD, BPH, s/p greenlight ablation, prostate CA who presents to the hospital with SOB found to be in acute exacerbation of CHF. Acute respiratory failure secondary to acute exacerbation of systolic CHF. continues to improve losing water weight SOB better continue lasix IV 40mg daily for today. Cr 1.2 Hco3 28 Patient reports diuresing well. f/u cardiology suspect patient can be transitioned to oral laisx tomorrow Patient states he takes 20mg of lasix oral and takes 40mg on average of about 1 time a week as needed for volume overload guideline directed medical therapy with coreg entresto and spironolactone trend electrolytes HTN BP needs better control. Goal 120/80 Will discuss with cardiology about increasing spironolactone vs starting new antihypertensive Afib rate controlled continue coreg continue aspirin continue eliquis CAD continue aspirin continue statin allopurinol for history of gout proscar and floamx for BPH/prostate Ca-outpatient follow up with [facility] for prostate Ca treatment to start 11/2019 hypokalemia and hypomagnesemia due to aggressive diuresis: potassium 40meq po BID x2 doses magnesium 400mg po BID x 2 doses DVT PPx with eliquis anticipate d/c in the next 24 hours to follow up with Dr. El from cardiology upon discharge Visit type - Emergency Visit Emergency Visit: Yes ED Registration Date: 10/13/19 Care time: The patient presented to the Emergency Department on the above date and was hospitalized for further evaluation of their emergent condition. - New Patient This patient is new to me today: Yes Date on this admission: 10/14/19 - Critical Care Critical Care patient: No
[2019-10-14] MEDS ORDERED: ALLOPURINOL 300 MG TABLET (FP) PO SCH ×2 (10:00)
[2019-10-14] MEDS: FUROSEMIDE 40 MG/4 ML INJECTABLE VIAL IVPUSH SCH (10:03)
[2019-10-14] MEDS: POTASSIUM CHLORIDE TABS 20 MEQ TABLET.ER (FP) PO SCH ×2 (10:04→22:36)
[2019-10-14] MEDS: APIXABAN 5 MG TABLET PO SCH ×2 (10:04→22:36)
[2019-10-14] MEDS: FINASTERIDE 5 MG TABLET (FP) PO SCH (10:04)
[2019-10-14] MEDS: ALLOPURINOL 100 MG TABLET (FP) PO SCH (10:04)
[2019-10-14] MEDS: ASPIRIN COATED 81 MG TABLET.EC PO SCH (10:04)
[2019-10-14] MEDS: MAGNESIUM OXIDE 400 MG TABLET (FP) PO SCH ×2 (10:04→22:36)
[2019-10-14] MEDS: SPIRONOLACTONE 25 MG TABLET (FP) PO SCH (10:04)
[2019-10-14] MEDS: CARVEDILOL 25 MG TABLET (FP) PO SCH ×2 (10:05→23:20)
[2019-10-14] MEDS: SACUBITRIL/VALSARTAN 97 MG-103 MG TABLET PO SCH ×2 (10:06→22:38)
[2019-10-14] MEDS ORDERED: PT OWN MED DRAWER 7, Y5N ONE (22:32)
[2019-10-14] MEDS: ATORVASTATIN CA 20 MG TABLET (FP) PO SCH (22:36)
[2019-10-14] MEDS: TAMSULOSIN HCL 0.4 MG CAP PO SCH (22:38)
--- NOTE | 2019-10-15 07:44 | PN ---
Progress Note (short form) - Note Progress Note: Chief Complaint: Events noted, notes reviewed, denies any chest pain, dyspnea resolved, ambulating without any difficulty or limitations History of Present Illness: Seen and examined on telemetry. Events noted, notes reviewed, denies any chest pain, dyspnea resolved, ambulating without any difficulty or limitations As noted patient reported poor compliance with therapy administration for 2 days post procedure - Current Medication List Current Medications Allopurinol (Zyloprim -) [address] [facility] Last Admin: 10/15/19 09:24 Dose: 400 mg Apixaban (Eliquis -) [address] [facility] Last Admin: 10/15/19 09:24 Dose: 5 mg Aspirin (Ecotrin -) [address] [facility] Last Admin: 10/15/19 09:23 Dose: 81 mg Atorvastatin Calcium (Lipitor -) 20 mg PO [facility] Last Admin: 10/14/19 22:36 Dose: 20 mg Carvedilol (Coreg -) [address] [facility] Last Admin: 10/15/19 09:23 Dose: 25 mg Finasteride (Proscar -) [address] [facility] Last Admin: 10/15/19 09:24 Dose: 5 mg Furosemide (Lasix Injection -) [address] [facility] Last Admin: 10/15/19 09:24 Dose: 40 mg Sacubitril/Valsartan (Entresto 97 Mg-103 Mg Tablet) [address] [facility] Last Admin: 10/15/19 09:24 Dose: 1 tab Spironolactone (Aldactone -) [address] [facility] Last Admin: 10/15/19 09:23 Dose: 25 mg Tamsulosin HCl (Flomax -) 0.4 mg PO [facility] Last Admin: 10/14/19 22:38 Dose: 0.4 mg Review of Systems Cardiovascular: As noted above Respiratory: denies: Cough or Sputum Production Gastrointestinal: denies: Nausea, Vomiting, Diarrhea, Constipation or Abdominal Discomfort Musculoskeletal: No Symptoms Reported Endocrine: No Symptoms Reported` - Objective Vital Signs: Last Vital Signs Temp Pulse Resp BP Pulse Ox 98.0 F 90 18 120/82 100 10/15/19 06:00 10/15/19 06:00 10/15/19 06:00 10/15/19 06:00 10/14/19 21:00 Intake & Output 10/12/19 10/13/19 10/14/19 10/15/19 23:59 23:59 23:59 23:59 Intake Total 350 1130 Balance 350 1130 Weight 194 lb 6.4 oz 191 lb 6.4 oz 189 lb 3.2 oz Neck: Supple Negative JVD No Bruit Respiratory: Clear to A&P Bilaterally Cardiovascular: S1 S2 Regular Rate and Rhythm Grade 1/6 FDAI Gastrointestinal: Soft Benign Normal Bowel Sounds Ext: Trace Edema Labs: CBC, BMP 10/15/19 06:40 10/15/19 06:40 Hepatic Panel Total Bilirubin 1.0 mg/dL (0.2-1) 10/13/19 09:25 AST 33 U/L (15-37) 10/13/19 09:25 ALT 26 U/L (13-61) 10/13/19 09:25 Alkaline Phosphatase 158 U/L (45-117) H 10/13/19 09:25 Albumin 3.1 g/dl (3.4-5.0) L 10/13/19 09:25 INR, PTT INR 1.53 (0.83-1.09) H 10/13/19 09:25 Assessment/Plan ASSESSMENT: 1. Acute on chronic class II-III NYHA classification LV systolic failure related to dilated non- ischemic cardiomyopathy (LVEF 25-30%), clinically resolved 2. CAD post PCI/stent angina pectoris, clinically stable 3. Persistent atrial fibrillation [id number] score of 3 on DOAC's/Eliquis 4. Hypertension/HCVD, at goal 5. Hyperlipidemia 6. CKD 7. Hypokalemia, resolved 8. Thrombocytopenia, persistent PLAN: 1. Continue Lasix but switch to PO at 40 mg daily with close monitoring of renal function and electrolytes 2. Continue Coreg 3. Continue Entresto, with close monitoring of renal function and electrolytes 4. Continue Aladactone, with close monitoring of renal function and electrolytes 5. Continue Eliquis 6. Continue Lipitor 7. Can be D/C home from the cardiovascular point of view and followup in the office in 1-2 week Bradley Brito M.D.
[2019-10-15 07:45] LABS: HEMATOCRIT 35.6 % (35.4-49); HEMOGLOBIN 12.1 GM/dL (11.7-16.9); MCH 32.2 pg (25.7-33.7); MEAN CELL VOLUME 94.7 fl (80-96); MEAN PLT VOLUME 9.2 fl (7.5-11.1); PLATELET COUNT 96 K/MM3 (134-434); RBC 3.75 M/mm3 (4.00-5.60); RDW 14.5 % (11.9-15.9); WHITE BLOOD COUNT 3.4 K/mm3 (4.0-10.0)
[2019-10-15 08:10] LABS: BLOOD UREA NITROGEN 27.7 mg/dL (7-18); CALCIUM 8.4 mg/dL (8.5-10.1); CREATININE 1.1 mg/dL (0.55-1.3); MAGNESIUM 1.7 mg/dL (1.8-2.4); POTASSIUM 3.6 mmol/L (3.5-5.1)
[2019-10-15 08:54] VITALS: TEMP 97.6
[2019-10-15] MEDS: SPIRONOLACTONE 25 MG TABLET (FP) PO SCH (09:23)
[2019-10-15] MEDS: CARVEDILOL 25 MG TABLET (FP) PO SCH (09:23)
[2019-10-15] MEDS: ASPIRIN COATED 81 MG TABLET.EC PO SCH (09:23)
[2019-10-15] MEDS: FUROSEMIDE 40 MG/4 ML INJECTABLE VIAL IVPUSH SCH (09:24)
[2019-10-15] MEDS: APIXABAN 5 MG TABLET PO SCH (09:24)
[2019-10-15] MEDS: ALLOPURINOL 100 MG TABLET (FP) PO SCH (09:24)
[2019-10-15] MEDS: FINASTERIDE 5 MG TABLET (FP) PO SCH (09:24)
[2019-10-15] MEDS: SACUBITRIL/VALSARTAN 97 MG-103 MG TABLET PO SCH (09:24)
[2019-10-15] MEDS ORDERED: POTASSIUM CHLORIDE TABS 20 MEQ TABLET.ER (FP) PO ONE (11:41)
[2019-10-15] MEDS ORDERED: MAGNESIUM OXIDE 400 MG TABLET (FP) PO ONE (11:45)
--- NOTE | 2019-10-15 11:45 | DS ---
Physical Examination Vital Signs: Vital Signs Temperature 97.6 F 10/15/19 08:53 Pulse Rate 92 H 10/15/19 08:53 Respiratory Rate 18 10/15/19 08:56 Blood Pressure 123/75 10/15/19 08:53 O2 Sat by Pulse Oximetry (%) 97 10/15/19 08:56 Findings/Remarks: Constitutional: Yes: Well Nourished, No Distress, Calm Eyes: Yes: EOM Intact HENT: Yes: Atraumatic, Normocephalic Neck: Yes: Supple Cardiovascular: Yes: Pulse Irregular, S1, S2 Respiratory: Yes: Regular, CTA Bilaterally Gastrointestinal: Yes: WNL, Soft. No: Distention, Tenderness Genitourinary: No: CVA Tenderness - Left, CVA Tenderness - Right Edema: No Wound/Incision: Yes: Other (left cheeck wound dressing C/D/I) Neurological: Yes: Alert Labs: CBC, BMP 10/15/19 06:40 10/15/19 06:40 Discharge Summary Problems reviewed: Yes Reason For Visit: ACUTE ON CHRONIC CHF Current Active Problems Biventricular automatic implantable cardioverter defibrillator in situ (Acute) CHF exacerbation (Acute) Hospital Course: 69M with multiple medical problems presented to the hospital with shortness of breath found to be in acute CHF exacerbation. He was treated with Lasix IV for diuresis and responded well and his symptoms resolved. His BP was not at goal and per cardiology his entresto was increased which put his BP at goal. The patient will follow up with Dr. Brito who is his primary systems test technician who also saw him in the hospital in consultation. Patient improved and ready for discharge. Condition: Improved - Instructions Diet, Activity, Other Instructions: you were admitted for exacerbation of your congestive heart failure. please continue your home medications as prescribed. you will be on a higher dose of entresto and i will send you a prescription. in the mean time you can double the remaining entresto you have left at home. maintain a low sodium diet. take 40mg of lasix a day. if you develop shortness of breath again or worsening of your symptoms then call your systems test technician or primary care doctor or go to the nearest emergency room. Referrals: Bradley Brito MD [Staff Physician] - 1 Week Christoph Recio MD [Staff Physician] - 1 Week Disposition: HOME - Home Medications Comprehensive Discharge Medication List: Ambulatory Orders Apixaban [Eliquis] 5 mg PO BID 05/19/15 Aspirin [Ecotrin] 81 mg PO DAILY 05/19/15 Carvedilol 25 mg PO BID 05/19/15 Finasteride 5 mg PO DAILY 05/19/15 Allopurinol 400 mg PO DAILY 08/28/15 Simvastatin 40 mg PO HS 01/06/19 Tamsulosin HCl [Flomax] 0.4 mg PO HS #30 cap.er.24h 03/06/19 Spironolactone [Aldactone -] 25 mg PO DAILY 10/13/19 Furosemide 40 mg PO DAILY #30 tablet 10/15/19 Sacubitril/Valsartan [Entresto 97 mg-103 mg Tablet] 1 tab PO BID #60 tablet This patient is new to me today: No Emergency Visit: Yes ED Registration Date: 10/13/19 Care time: The patient presented to the Emergency Department on the above date and was hospitalized for further evaluation of their emergent condition. Critical Care patient: No - Discharge Referral Referred to [facility] No
[2019-10-15 12:34] VITALS: BP 110/52; PULSE 91
== END 2019-10-15 12:52 | disposition home or self-care (01) | DRG 291 ==
LOC: JER 08:02 → JERBED 12:03 → J4S 20:29
PROVIDERS: ADMIT Internal Medicine; ATTEND Internal Medicine
DX: I13.0 Hypertensive heart and chronic kidney disease with heart failure and stage 1 through stage 4 chronic kidney disease, or unspecified chronic kidney disease (principal); I50.23 Acute on chronic systolic (congestive) heart failure; J96.00 Acute respiratory failure, unspecified whether with hypoxia or hypercapnia; I50.22 Chronic systolic (congestive) heart failure; I48.19 Other persistent atrial fibrillation; I25.10 Atherosclerotic heart disease of native coronary artery without angina pectoris; E87.6 Hypokalemia; Z79.01 Long term (current) use of anticoagulants; E83.42 Hypomagnesemia; E78.5 Hyperlipidemia, unspecified; Z95.810 Presence of automatic (implantable) cardiac defibrillator; C61 Malignant neoplasm of prostate; M10.9 Gout, unspecified; N40.0 Benign prostatic hyperplasia without lower urinary tract symptoms; N18.9 Chronic kidney disease, unspecified; I42.8 Other cardiomyopathies; D69.6 Thrombocytopenia, unspecified
CPT/HCPCS: 36415; 71045-TC-FY; 80048; 80053; 82550; 83735; 83880; 84100; 84484; 85025; 85027; 85610; 93005; 93010; 99284-25

== ENCOUNTER 2020-11-09 08:41 | Inpatient (IN) | payer BC, OTHER ==
[2020-11-09] MEDS ORDERED: ACETAMINOPHEN 1000 MG/100 ML VIAL (NON FORMULARY) IVPB ONE (09:38)
[2020-11-09] MEDS ORDERED: ACETAMINOPHEN INJECTION 100 ML IVPB ONE (10:18)
[2020-11-09 10:36] LABS: BASO % 0.3 % (0-2.0); HEMATOCRIT 33.2 % (35.4-49); LYMPH % 5.3 % (8-40); MCH 31.1 pg (25.7-33.7); MCHC 33.1 g/dl (32.0-35.9); MEAN PLT VOLUME 8.8 fl (7.5-11.1); MONO % 6.5 % (3.8-10.2); NEUT % 87.9 % (42.8-82.8); PLATELET COUNT 146 K/MM3 (134-434); RBC 3.53 M/mm3 (4.00-5.60); RDW 17.3 % (11.9-15.9); WHITE BLOOD COUNT 5.3 K/mm3 (4.0-10.0)
[2020-11-09 10:43] LABS: INR 1.51 (0.83-1.09); PROTHROMBIN TIME (PATIENT) 18.4 SEC (9.7-13.0)
[2020-11-09 10:44] LABS: EPI CELLS 32 /uL (0-25.1); HYALINE CASTS 31 /uL (0-3.1); URINE APPEARANCE CLOUDY; URINE BACTERIA 60 /uL (0-1359); URINE BILIRUBIN 1+ (NEGATIVE); URINE COLOR DK YELLOW; URINE GLUCOSE (UA) NEGATIVE (NEGATIVE); URINE KETONE NEGATIVE (NEGATIVE); URINE LEUK ESTERASE NEGATIVE (NEGATIVE); URINE NITRITE NEGATIVE (NEGATIVE); URINE PROTEIN 3+ (NEGATIVE); URINE RBC 11 /uL (0-23.9); URINE WBC 25 /uL (0-25.8)
[2020-11-09 10:46] LABS: ACTIVATED PTT 26.7 SECONDS (25.2-36.5)
[2020-11-09 10:58] LABS: POTASSIUM 3.7 mmol/L (3.5-5.1)
[2020-11-09 11:00] LABS: ALBUMIN 2.9 g/dl (3.4-5.0); BLOOD UREA NITROGEN 27.9 mg/dL (7-18); CALCIUM 8.5 mg/dL (8.5-10.1)
[2020-11-09 11:05] LABS: CREATININE 1.6 mg/dL (0.55-1.3)
[2020-11-09 11:06] LABS: BILIRUBIN,TOTAL 1.4 mg/dL (0.2-1); TOT PROT 7.5 g/dl (6.4-8.2)
[2020-11-09] MEDS ORDERED: SODIUM CHLORIDE 0.9% 500 ML INFUS.BAG IV ONE (11:25)
[2020-11-09] MEDS ORDERED: DEXAMETHASONE SOD PHOSPHATE 10 MG/1 ML VIAL IVPUSH ONE (11:28)
[2020-11-09] MEDS ORDERED: PIPERACILLIN/TAZOB 3.375 GM 3.375 GM in DEXTROSE 5%-WATER - 50 ML IVPB ONE (11:30)
[2020-11-09] MEDS ORDERED: VANCOMYCIN 1 GM in D5W (PRE-DOCKED) 1,000 MG/250 ML IVPB ONE (11:31)
[2020-11-09 11:40] LABS: N-TERMINAL BNP 36587.4 pg/ml (5-125)
[2020-11-09 11:47] LABS: VENOUS BASE EXCESS -0.5 mmol/L (-2-2); VENOUS O2 SATURATION 64.8 % (70-80); VENOUS PCO2 42.7 mmHg (38-52); VENOUS PH 7.38 (7.310-7.410)
[2020-11-09] MEDS ORDERED: DEXAMETHASONE SOD PHOSPHATE 10 MG/1 ML VIAL ONE (11:49)
[2020-11-09] MEDS ORDERED: PIPERACILLIN/TAZOB 3.375 GM 3.375 GM/50 ML BAG IVPB ONE (11:49)
[2020-11-09] MEDS ORDERED: VANCOMYCIN 1 GRAM (PRE-DOCKED) 1,000 MG/250 ML BAG IVPB ONE (12:34)
[2020-11-09] MEDS ORDERED: FUROSEMIDE 40 MG/4 ML INJECTABLE VIAL IVPUSH ONE (12:56)
[2020-11-09] MEDS ORDERED: APIXABAN 5 MG TABLET ONE (13:32)
[2020-11-09] MEDS ORDERED: CARVEDILOL 12.5 MG TABLET (FP) ONE (13:33)
[2020-11-09] MEDS ORDERED: FUROSEMIDE 40 MG/4 ML INJECTABLE VIAL ONE (13:33)
[2020-11-09] MEDS ORDERED: SPIRONOLACTONE 25 MG TABLET ONE (13:33)
[2020-11-09] MEDS: CARVEDILOL 25 MG TABLET (FP) PO SCH (13:41)
[2020-11-09] MEDS: SPIRONOLACTONE 25 MG TABLET PO SCH (13:41)
[2020-11-09] MEDS: APIXABAN 5 MG TABLET PO SCH (13:42)
[2020-11-09] MEDS ORDERED: DOXYCYCLINE HYCLATE 100 MG CAPSULE PO ONE (18:22)
[2020-11-09] MEDS ORDERED: CEFTRIAXONE 1 GM/50 ML BAG ONE (18:23)
[2020-11-09] MEDS: CEFTRIAXONE 1 GM in DEXTROSE 5%-WATER - 50 ML IVPB SCH (18:34)
[2020-11-09] MEDS: DOXYCYCLINE HYCLATE 100 MG CAPSULE PO SCH (18:34)
[2020-11-09] MEDS ORDERED: TAMSULOSIN HCL 0.4 MG CAP ONE (22:26)
[2020-11-10] MEDS ORDERED: APIXABAN 5 MG TABLET ONE (01:01)
[2020-11-10] MEDS ORDERED: CARVEDILOL 12.5 MG TABLET (FP) ONE ×2 (01:02→11:59)
[2020-11-10] MEDS: APIXABAN 5 MG TABLET PO SCH (01:06)
[2020-11-10] MEDS: CARVEDILOL 25 MG TABLET (FP) PO SCH ×3 (01:06→21:02)
[2020-11-10 07:48] LABS: HEMATOCRIT 29.8 % (35.4-49); HEMOGLOBIN 9.8 GM/dL (11.7-16.9); MEAN CELL VOLUME 94.1 fl (80-96); MEAN PLT VOLUME 8.9 fl (7.5-11.1); PLATELET COUNT 87 K/MM3 (134-434); RBC 3.16 M/mm3 (4.00-5.60); RDW 17.3 % (11.9-15.9)
[2020-11-10 07:56] LABS: POTASSIUM 3.2 mmol/L (3.5-5.1)
[2020-11-10 08:06] LABS: BLOOD UREA NITROGEN 39.7 mg/dL (7-18)
[2020-11-10 08:08] LABS: ALBUMIN 2.4 g/dl (3.4-5.0); MAGNESIUM 1.4 mg/dL (1.8-2.4)
[2020-11-10 08:11] LABS: BILIRUBIN,TOTAL 0.6 mg/dL (0.2-1); CREATININE 1.4 mg/dL (0.55-1.3)
[2020-11-10 08:12] LABS: PHOSPHOROUS 4.1 mg/dL (2.5-4.9)
[2020-11-10 08:13] LABS: TOT PROT 6.5 g/dl (6.4-8.2)
[2020-11-10] MEDS ORDERED: POTASSIUM CHLORIDE TABS 20 MEQ TABLET.ER (FP) PO ONE ×3 (08:28→13:46)
[2020-11-10] MEDS ORDERED: MAGNESIUM SULF 50% (8.12 MEQ/2 ML-1 GM VIAL) IVPB ONE ×2 (08:33→14:00)
[2020-11-10] MEDS ORDERED: AZITHROMYCIN 250 MG TABLET PO SCH (10:00)
[2020-11-10] MEDS ORDERED: FINASTERIDE 5 MG TABLET (FP) PO SCH (10:00)
[2020-11-10] MEDS ORDERED: SPIRONOLACTONE 25 MG TABLET ONE (12:00)
[2020-11-10] MEDS ORDERED: FUROSEMIDE 40 MG/4 ML INJECTABLE VIAL ONE (12:00)
[2020-11-10] MEDS ORDERED: MAGNESIUM SULFATE IN WATER 2 GM/50 ML IVPB IVPB ONE (12:00)
[2020-11-10] MEDS: SPIRONOLACTONE 25 MG TABLET PO SCH (12:15)
[2020-11-10] MEDS: FUROSEMIDE 40 MG/4 ML INJECTABLE VIAL IVPUSH SCH (12:58)
[2020-11-10] MEDS ORDERED: DOXYCYCLINE HYCLATE 100 MG VIAL ONE (13:46)
[2020-11-10] MEDS ORDERED: CEFTRIAXONE 1 GM/50 ML BAG ONE ×2 (13:46→13:47)
[2020-11-10] MEDS: POTASSIUM CHLORIDE TABS 20 MEQ TABLET.ER (FP) PO SCH ×2 (14:01→21:02)
[2020-11-10] MEDS: CEFTRIAXONE 1 GM in DEXTROSE 5%-WATER - 50 ML IVPB SCH (14:01)
[2020-11-10] MEDS ORDERED: DOXYCYCLINE HYCLATE 100 MG CAPSULE PO ONE (14:55)
[2020-11-10] MEDS: DOXYCYCLINE HYCLATE 100 MG CAPSULE PO SCH ×2 (14:57→17:47)
[2020-11-10 17:45] VITALS: BMI 24.7
[2020-11-10] MEDS: SACUBITRIL/VALSARTAN 49 MG-51 MG TABLET PO SCH (21:02)
[2020-11-10] MEDS: TAMSULOSIN HCL 0.4 MG CAP PO SCH (21:02)
[2020-11-11 06:53] LABS: BASO % 0.4 % (0-2.0); EOS % 0.8 % (0-4.5); HEMATOCRIT 30.2 % (35.4-49); LYMPH % 6.5 % (8-40); MCH 30.9 pg (25.7-33.7); MEAN CELL VOLUME 93.9 fl (80-96); MONO % 7.3 % (3.8-10.2); PLATELET COUNT 90 K/MM3 (134-434); RBC 3.22 M/mm3 (4.00-5.60); RDW 17.4 % (11.9-15.9); WHITE BLOOD COUNT 2.4 K/mm3 (4.0-10.0)
[2020-11-11 07:07] LABS: POTASSIUM 3.9 mmol/L (3.5-5.1)
[2020-11-11 07:14] LABS: CALCIUM 7.9 mg/dL (8.5-10.1)
[2020-11-11 07:15] LABS: ALBUMIN 2.5 g/dl (3.4-5.0); MAGNESIUM 1.7 mg/dL (1.8-2.4)
[2020-11-11 07:16] LABS: BILIRUBIN,TOTAL 0.4 mg/dL (0.2-1); TOT PROT 6.5 g/dl (6.4-8.2)
[2020-11-11 07:18] LABS: CREATININE 1.3 mg/dL (0.55-1.3)
[2020-11-11] MEDS ORDERED: MAGNESIUM SULF 50% (8.12 MEQ/2 ML-1 GM VIAL) IVPB ONE (08:30)
[2020-11-11] MEDS ORDERED: cefTRIAXone SODIUM 1 GM VIAL ONE (09:45)
[2020-11-11] MEDS ORDERED: DEXTROSE 5%-WATER - 50 ML IVPB ONE (09:45)
[2020-11-11] MEDS: CEFTRIAXONE 1 GM in DEXTROSE 5%-WATER - 50 ML IVPB SCH (09:48)
[2020-11-11] MEDS: FUROSEMIDE 40 MG/4 ML INJECTABLE VIAL IVPUSH SCH (09:49)
[2020-11-11] MEDS: ENOXAPARIN NA (PORCINE) 80 MG/0.8 ML DISP.SYRIN SQ SCH ×3 (09:49→21:18)
[2020-11-11] MEDS: POTASSIUM CHLORIDE TABS 20 MEQ TABLET.ER (FP) PO SCH ×2 (09:50→21:17)
[2020-11-11] MEDS: CARVEDILOL 25 MG TABLET (FP) PO SCH ×2 (09:50→21:16)
[2020-11-11] MEDS: SPIRONOLACTONE 25 MG TABLET PO SCH (09:50)
[2020-11-11] MEDS: SACUBITRIL/VALSARTAN 49 MG-51 MG TABLET PO SCH ×3 (09:56→21:16)
[2020-11-11] MEDS ORDERED: MAGNESIUM 1GM/D5W 100ML - 100 ML IVPB IVPB ONE (10:00)
[2020-11-11] MEDS: DOXYCYCLINE HYCLATE 100 MG CAPSULE PO SCH ×2 (10:07→17:41)
[2020-11-11] MEDS ORDERED: PT OWN MED DRAWER 7, Y5N ONE (21:09)
[2020-11-11] MEDS: TAMSULOSIN HCL 0.4 MG CAP PO SCH (21:16)
[2020-11-12 07:10] LABS: BASO % 0.7 % (0-2.0); EOS % 1.7 % (0-4.5); HEMATOCRIT 30.8 % (35.4-49); LYMPH % 6.6 % (8-40); MCH 30.8 pg (25.7-33.7); MCHC 32.7 g/dl (32.0-35.9); MEAN CELL VOLUME 94.4 fl (80-96); MEAN PLT VOLUME 8.6 fl (7.5-11.1); MONO % 9.4 % (3.8-10.2); NEUT % 81.6 % (42.8-82.8); PLATELET COUNT 88 K/MM3 (134-434); RBC 3.26 M/mm3 (4.00-5.60); RDW 17.1 % (11.9-15.9); WHITE BLOOD COUNT 2.2 K/mm3 (4.0-10.0)
[2020-11-12 07:19] LABS: POTASSIUM 3.7 mmol/L (3.5-5.1)
[2020-11-12 07:25] LABS: ALBUMIN 2.5 g/dl (3.4-5.0)
[2020-11-12 07:27] LABS: CALCIUM 8.2 mg/dL (8.5-10.1)
[2020-11-12 07:28] LABS: BILIRUBIN,TOTAL 0.5 mg/dL (0.2-1); BLOOD UREA NITROGEN 31.3 mg/dL (7-18); MAGNESIUM 1.8 mg/dL (1.8-2.4)
[2020-11-12 07:29] LABS: TOT PROT 6.5 g/dl (6.4-8.2)
[2020-11-12] MEDS ORDERED: cefTRIAXone SODIUM 1 GM VIAL ONE (09:39)
[2020-11-12] MEDS ORDERED: PT OWN MED DRAWER 7, Y5N ONE ×3 (09:39→10:26)
[2020-11-12] MEDS ORDERED: DEXTROSE 5%-WATER - 50 ML IVPB ONE (09:40)
[2020-11-12] MEDS: DOXYCYCLINE HYCLATE 100 MG CAPSULE PO SCH (10:00)
[2020-11-12] MEDS: SPIRONOLACTONE 25 MG TABLET PO SCH (10:00)
[2020-11-12] MEDS: CARVEDILOL 25 MG TABLET (FP) PO SCH (10:00)
[2020-11-12] MEDS: FUROSEMIDE 40 MG/4 ML INJECTABLE VIAL IVPUSH SCH (10:00)
[2020-11-12] MEDS: SACUBITRIL/VALSARTAN 49 MG-51 MG TABLET PO SCH (10:07)
[2020-11-12] MEDS: CEFTRIAXONE 1 GM in DEXTROSE 5%-WATER - 50 ML IVPB SCH (10:14)
[2020-11-12] MEDS: ENOXAPARIN NA (PORCINE) 80 MG/0.8 ML DISP.SYRIN SQ SCH (10:49)
[2020-11-12 14:04] VITALS: BP 113/68; TEMP 97.4
[2020-11-12 14:35] VITALS: PULSE 89
[2020-11-13] MEDS ORDERED: FUROSEMIDE 40 MG TABLET (FP) PO SCH (10:00)
== END 2020-11-12 18:19 | disposition home or self-care (01) | DRG 291 ==
LOC: JER 08:41 → JERBED 11:59 → OBSVTOIN 11-10 09:21 → J4S 11-10 16:19
PROVIDERS: ADMIT Internal Medicine; ATTEND Internal Medicine
DX: I13.0 Hypertensive heart and chronic kidney disease with heart failure and stage 1 through stage 4 chronic kidney disease, or unspecified chronic kidney disease (principal); I50.23 Acute on chronic systolic (congestive) heart failure; I24.8 Other forms of acute ischemic heart disease; E87.2 Acidosis; I48.19 Other persistent atrial fibrillation; D61.818 Other pancytopenia; N17.9 Acute kidney failure, unspecified; I25.10 Atherosclerotic heart disease of native coronary artery without angina pectoris; E78.5 Hyperlipidemia, unspecified; Z79.01 Long term (current) use of anticoagulants; N40.0 Benign prostatic hyperplasia without lower urinary tract symptoms; C61 Malignant neoplasm of prostate; Z95.810 Presence of automatic (implantable) cardiac defibrillator; R74.01 Elevation of levels of liver transaminase levels; D64.9 Anemia, unspecified; R94.31 Abnormal electrocardiogram [ECG] [EKG]; E87.6 Hypokalemia; E83.42 Hypomagnesemia; I42.8 Other cardiomyopathies; N18.9 Chronic kidney disease, unspecified; R22.9 Localized swelling, mass and lump, unspecified
CPT/HCPCS: 36415; 71045-TC-FY; 80053; 81003; 82550; 82553; 82565; 82728; 82803; 83605; 83615; 83735; 83880; 84100; 84484; 84540; 85025; 85027; 85379; 85610; 85730; 86140; 87040; 87086; 93005; 93010; 93970-TC; 94761; 97116-GP; 97161-GP; 99291; C9803; G0378; J0131; J1100; U0003

== ENCOUNTER → 2020-11-20 | Day surgery (SDC) | payer BC, OTHER | END | disposition home or self-care (01) | LOC: JRADUS-SUR 09:58 | PROVIDERS: ATTEND Internal Medicine Hematology & Oncology | PROC: 0JB60ZX Excision of Chest Subcutaneous Tissue and Fascia, Open Approach, Diagnostic (ICD-10-PCS; principal; 2020-11-20) | PROC: 0WB83ZX Excision of Chest Wall, Percutaneous Approach, Diagnostic (ICD-10-PCS; 2020-11-20) | DX: C76.1 Malignant neoplasm of thorax (principal); L72.0 Epidermal cyst | CPT/HCPCS: 19083; 19084; 87899; 88305-TC; 88341-TC; 88342-TC ==

== ENCOUNTER 2021-03-12 04:49 | Day surgery (SDC) | payer BC, OTHER ==
[2021-03-11 18:40] VITALS: BMI 27.7
[2021-03-12 08:57] LABS: INR 1.19 (0.83-1.09); PROTHROMBIN TIME (PATIENT) 14.3 SEC (9.7-13.0)
[2021-03-12 08:59] LABS: ACTIVATED PTT 29.2 SECONDS (25.2-36.5)
[2021-03-12 16:13] VITALS: BP 132/78; PULSE 82; TEMP 98
== END 2021-03-12 16:10 | disposition home or self-care (01) ==
LOC: JRADIR 04:49
PROVIDERS: ATTEND Internal Medicine Hematology & Oncology
PROC: 0BBJ3ZX Excision of Left Lower Lung Lobe, Percutaneous Approach, Diagnostic (ICD-10-PCS; principal; 2021-03-12)
DX: C34.32 Malignant neoplasm of lower lobe, left bronchus or lung (principal)
CPT/HCPCS: 32408; 36415; 71046-TC-FY; 85610; 85730; 88305-TC; 88341-TC; 88342-TC

== ENCOUNTER 2021-06-27 07:30 | Day surgery (SDC) | payer BC, OTHER ==
[2021-06-27] MEDS ORDERED: SODIUM CHLORIDE 250 ML IV ONE (09:00)
[2021-06-27] MEDS ORDERED: CALCIUM GLUC IN NACL, ISO-OSM 1 GM/50 ML BAG IVPB ONE (09:00)
[2021-06-27] MEDS ORDERED: CYANOCOBALAMIN (VITAMIN B-12) 1000 MCG/1 ML VIAL IM ONE (09:30)
[2021-06-27] MEDS ORDERED: MAGNESIUM OXIDE 400 MG TABLET (FP) PO ONE (09:30)
[2021-06-27] MEDS ORDERED: ONDANSETRON INJECTION 8 MG in SODIUM CHLORIDE 50 ML IVPB ONE (09:30)
[2021-06-27] MEDS ORDERED: CEMIPLIMAB RWLC IV ONE (10:00)
[2021-06-27] MEDS ORDERED: SODIUM CHLORIDE IV ONE (10:00)
[2021-06-27 16:05] VITALS: BP 98/52; PULSE 81; TEMP 97.7
== END 2021-06-27 12:20 | disposition home or self-care (01) ==
LOC: JONCCHEMO 07:30
PROVIDERS: ATTEND Internal Medicine Hematology & Oncology
DX: Z51.11 Encounter for antineoplastic chemotherapy (principal); C44.92 Squamous cell carcinoma of skin, unspecified; C78.00 Secondary malignant neoplasm of unspecified lung; C79.89 Secondary malignant neoplasm of other specified sites
CPT/HCPCS: 96367; 96375; 96413; J2405; J9119

== ENCOUNTER 2021-07-17 10:09 | Day surgery (SDC) | payer BC ==
[2021-07-17] MEDS ORDERED: SODIUM CHLORIDE 250 ML IV ONE (10:45)
[2021-07-17] MEDS ORDERED: TBO-FILGRASTIM 480 MCG/0.8 ML DISP.SYRIN SQ ONE (12:00)
[2021-07-17 18:22] VITALS: BP 125/72; PULSE 83; TEMP 98.4
[2021-07-18] MEDS ORDERED: SODIUM CHLORIDE 250 ML IV ONE (09:00)
[2021-07-18] MEDS ORDERED: CYANOCOBALAMIN (VITAMIN B-12) 1000 MCG/1 ML VIAL IM ONE (09:30)
[2021-07-18] MEDS ORDERED: ONDANSETRON INJECTION 8 MG in SODIUM CHLORIDE 50 ML IVPB ONE (09:30)
[2021-07-18] MEDS ORDERED: SODIUM CHLORIDE IV ONE (10:00)
[2021-07-18] MEDS ORDERED: CEMIPLIMAB RWLC IV ONE (10:00)
== END 2021-07-17 18:25 | disposition home or self-care (01) ==
LOC: JONCCHEMO 10:09
PROVIDERS: ATTEND Internal Medicine Hematology & Oncology
PROC: 3E013GC Introduction of Other Therapeutic Substance into Subcutaneous Tissue, Percutaneous Approach (ICD-10-PCS; principal; 2021-07-17)
DX: D70.9 Neutropenia, unspecified (principal); Z76.89 Persons encountering health services in other specified circumstances
CPT/HCPCS: 96372; J1447

== ENCOUNTER 2021-07-18 06:58 | Day surgery (SDC) | payer BC ==
[2021-07-18] MEDS ORDERED: SODIUM CHLORIDE 250 ML IV ONE (09:00)
[2021-07-18] MEDS ORDERED: CYANOCOBALAMIN (VITAMIN B-12) 1000 MCG/1 ML VIAL IM ONE (09:30)
[2021-07-18] MEDS ORDERED: ONDANSETRON INJECTION 8 MG in SODIUM CHLORIDE 50 ML IVPB ONE (09:30)
[2021-07-18 09:38] LABS: BASO % 0.3 % (0-2.0); EOS % 0.7 % (0-4.5); HEMATOCRIT 28.4 % (35.4-49); HEMOGLOBIN 9.6 GM/dL (11.7-16.9); LYMPH % 3.4 % (8-40); MCH 32.2 pg (25.7-33.7); MCHC 33.9 g/dl (32.0-35.9); MEAN CELL VOLUME 94.9 fl (80-96); MEAN PLT VOLUME 8.4 fl (7.5-11.1); MONO % 6.5 % (3.8-10.2); NEUT % 89.1 % (42.8-82.8); PLATELET COUNT 131 10^3/uL (134-434); RBC 2.99 M/mm3 (4.00-5.60); RDW 15.6 % (11.9-15.9); WHITE BLOOD COUNT 7.5 K/mm3 (4.0-10.0)
[2021-07-18] MEDS ORDERED: CEMIPLIMAB RWLC IV ONE (10:00)
[2021-07-18] MEDS ORDERED: SODIUM CHLORIDE IV ONE (10:00)
[2021-07-18 13:46] VITALS: TEMP 98.4
[2021-07-18 14:26] VITALS: BP 122/81; PULSE 85
== END 2021-07-18 11:45 | disposition home or self-care (01) ==
LOC: JONCCHEMO 06:58
PROVIDERS: ATTEND Internal Medicine Hematology & Oncology
PROC: 3E03305 Introduction of Other Antineoplastic into Peripheral Vein, Percutaneous Approach (ICD-10-PCS; principal; 2021-07-18)
PROC: 3E013GC Introduction of Other Therapeutic Substance into Subcutaneous Tissue, Percutaneous Approach (ICD-10-PCS; 2021-07-18)
DX: Z51.11 Encounter for antineoplastic chemotherapy (principal); C44.92 Squamous cell carcinoma of skin, unspecified; C78.00 Secondary malignant neoplasm of unspecified lung; C79.89 Secondary malignant neoplasm of other specified sites; E53.8 Deficiency of other specified B group vitamins
CPT/HCPCS: 36415; 85025; 96372; 96375; 96413; J2405; J9119

== ENCOUNTER 2021-07-20 19:09 | Inpatient (IN) | payer BC, OTHER ==
[2021-07-20] MEDS ORDERED: LACTATED RINGERS SOLUTION 1000 ML INFUS.BAG IV ONE (20:02)
[2021-07-20 20:07] LABS: BASO % 0.3 % (0-2.0); EOS % 0.7 % (0-4.5); HEMATOCRIT 29.8 % (35.4-49); HEMOGLOBIN 10.1 GM/dL (11.7-16.9); LYMPH % 3.5 % (8-40); MCH 31.9 pg (25.7-33.7); MCHC 33.8 g/dl (32.0-35.9); MEAN CELL VOLUME 94.2 fl (80-96); NEUT % 90.5 % (42.8-82.8); PLATELET COUNT 164 10^3/uL (134-434); RBC 3.16 M/mm3 (4.00-5.60); RDW 16.1 % (11.9-15.9); WHITE BLOOD COUNT 7.9 K/mm3 (4.0-10.0)
[2021-07-20 20:16] LABS: VENOUS O2 SATURATION 69.1 % (70-80); VENOUS PH 7.433 (7.310-7.410)
[2021-07-20 20:21] LABS: INR 1.49 (0.83-1.09); PROTHROMBIN TIME (PATIENT) 18.1 SEC (9.7-13.0)
[2021-07-20 20:23] LABS: ACTIVATED PTT 28.9 SECONDS (25.2-36.5)
[2021-07-20 20:28] LABS: ALBUMIN 2.6 g/dl (3.4-5.0); CALCIUM 8.2 mg/dL (8.5-10.1)
[2021-07-20 20:29] LABS: BLOOD UREA NITROGEN 26.6 mg/dL (7-18); MAGNESIUM 1.6 mg/dL (1.8-2.4)
[2021-07-20 20:32] LABS: CREATININE 1.3 mg/dL (0.55-1.3); PHOSPHOROUS 3.5 mg/dL (2.5-4.9)
[2021-07-20 20:33] LABS: BILIRUBIN,TOTAL 0.8 mg/dL (0.2-1); TOT PROT 7.7 g/dl (6.4-8.2)
[2021-07-20 20:37] LABS: N-TERMINAL BNP 34469.5 pg/ml (5-125)
[2021-07-20] MEDS ORDERED: MAGNESIUM SULF 50% (8.12 MEQ/2 ML-1 GM VIAL) IVPB ONE (20:43)
[2021-07-20] MEDS ORDERED: AZITHROMYCIN IVPB 500 MG in DEXTROSE 5%-WATER - 250 ML IVPB ONE (20:49)
[2021-07-20] MEDS ORDERED: AZITHROMYCIN IVPB 500 MG/250 ML BAG IVPB ONE (21:12)
[2021-07-20] MEDS ORDERED: CEFTRIAXONE 1 GM/50 ML BAG ONE (21:12)
[2021-07-20] MEDS ORDERED: MAGNESIUM 1GM/D5W - 1 GM/100 ML IVPB IVPB ONE (21:12)
[2021-07-20] MEDS ORDERED: dilTIAZem HCL 50 MG/10 ML - 10 ML VIAL IVPUSH ONE (21:43)
[2021-07-20] MEDS ORDERED: dilTIAZem HCL 125 MG/25 ML - 25 ML VIAL ONE (21:51)
[2021-07-21 00:46] VITALS: BMI 23.7
[2021-07-21] MEDS ORDERED: METOPROLOL TARTRATE 5 MG/5 ML VIAL IVPUSH ONE ×2 (01:44→02:45)
[2021-07-21] MEDS ORDERED: CARVEDILOL 25 MG TABLET (FP) PO SCH (01:45)
[2021-07-21] MEDS ORDERED: FUROSEMIDE 40 MG/4 ML INJECTABLE VIAL IVPUSH ONE ×2 (02:01→02:45)
[2021-07-21] MEDS ORDERED: MAGNESIUM SULF 50% (8.12 MEQ/2 ML-1 GM VIAL) IVPB ONE ×2 (02:08→02:45)
[2021-07-21] MEDS ORDERED: POTASSIUM CHLORIDE 10 MEQ PREMIX IVPB (POTASSIUM RIDER) IVPB SCH (02:30)
[2021-07-21] MEDS: CARVEDILOL 25 MG TABLET (FP) PO SCH ×3 (02:48→21:10)
[2021-07-21] MEDS: POTASSIUM CHLORIDE 10 MEQ PREMIX IVPB (POTASSIUM RIDER) IVPB SCH ×2 (04:20→05:33)
[2021-07-21 07:36] LABS: HEMATOCRIT 27.4 % (35.4-49); HEMOGLOBIN 9.2 GM/dL (11.7-16.9); MCH 31.6 pg (25.7-33.7); MCHC 33.8 g/dl (32.0-35.9); MEAN CELL VOLUME 93.5 fl (80-96); MEAN PLT VOLUME 8.1 fl (7.5-11.1); PLATELET COUNT 103 10^3/uL (134-434); RBC 2.93 M/mm3 (4.00-5.60); RDW 15.9 % (11.9-15.9); WHITE BLOOD COUNT 4.2 K/mm3 (4.0-10.0)
[2021-07-21 08:00] LABS: ALBUMIN 2.2 g/dl (3.4-5.0); CALCIUM 7.8 mg/dL (8.5-10.1)
[2021-07-21 08:01] LABS: BLOOD UREA NITROGEN 27.7 mg/dL (7-18)
[2021-07-21 08:02] LABS: CREATININE 1.2 mg/dL (0.55-1.3)
[2021-07-21 08:04] LABS: PHOSPHOROUS 3.8 mg/dL (2.5-4.9)
[2021-07-21 08:05] LABS: BILIRUBIN,TOTAL 0.5 mg/dL (0.2-1); TOT PROT 6.7 g/dl (6.4-8.2)
[2021-07-21 08:23] LABS: URINE APPEARANCE CLEAR; URINE BILIRUBIN NEGATIVE (NEGATIVE); URINE COLOR YELLOW; URINE GLUCOSE (UA) NEGATIVE (NEGATIVE); URINE KETONE NEGATIVE (NEGATIVE); URINE LEUK ESTERASE NEGATIVE (NEGATIVE); URINE NITRITE NEGATIVE (NEGATIVE); URINE PROTEIN TRACE (NEGATIVE); URINE UROBILINOGEN 0.2 mg/dL (0.2-1.0)
[2021-07-21] MEDS: APIXABAN 5 MG TABLET PO SCH ×2 (09:17→21:11)
[2021-07-21] MEDS ORDERED: PT OWN MED DRAWER 7, Y5N ONE (11:16)
[2021-07-21] MEDS: TAMSULOSIN HCL 0.4 MG CAP PO SCH (21:10)
[2021-07-21] MEDS: ATORVASTATIN CA 20 MG TABLET (FP) PO SCH (21:11)
[2021-07-21] MEDS: SACUBITRIL/VALSARTAN 49 MG-51 MG TABLET PO SCH (21:11)
[2021-07-22] MEDS ORDERED: PT OWN MED DRAWER 7, Y5N ONE ×2 (09:22→21:02)
[2021-07-22] MEDS: CARVEDILOL 25 MG TABLET (FP) PO SCH ×2 (09:26→21:13)
[2021-07-22] MEDS: APIXABAN 5 MG TABLET PO SCH ×2 (09:26→21:14)
[2021-07-22] MEDS: FINASTERIDE 5 MG TABLET (FP) PO SCH (09:26)
[2021-07-22] MEDS: SPIRONOLACTONE 25 MG TABLET PO SCH (09:26)
[2021-07-22] MEDS: SACUBITRIL/VALSARTAN 49 MG-51 MG TABLET PO SCH ×2 (09:27→21:14)
[2021-07-22] MEDS: FUROSEMIDE 40 MG/4 ML INJECTABLE VIAL IVPUSH SCH (09:27)
[2021-07-22] MEDS ORDERED: SPIRONOLACTONE 25 MG TABLET PO SCH (10:00)
[2021-07-22] MEDS: TAMSULOSIN HCL 0.4 MG CAP PO SCH (21:13)
[2021-07-22] MEDS: ATORVASTATIN CA 20 MG TABLET (FP) PO SCH (21:14)
[2021-07-23 07:48] LABS: ALBUMIN 1.8 g/dl (3.4-5.0); CALCIUM 7.7 mg/dL (8.5-10.1)
[2021-07-23 07:49] LABS: BASO % 0.4 % (0-2.0); BLOOD UREA NITROGEN 22.8 mg/dL (7-18); EOS % 1.7 % (0-4.5); HEMATOCRIT 24.4 % (35.4-49); HEMOGLOBIN 8.2 GM/dL (11.7-16.9); LYMPH % 5.5 % (8-40); MCH 31.7 pg (25.7-33.7); MCHC 33.6 g/dl (32.0-35.9); MEAN CELL VOLUME 94.3 fl (80-96); MEAN PLT VOLUME 8.6 fl (7.5-11.1); MONO % 11.4 % (3.8-10.2); PLATELET COUNT 88 10^3/uL (134-434); RBC 2.59 M/mm3 (4.00-5.60); RDW 15.9 % (11.9-15.9); WHITE BLOOD COUNT 2.3 K/mm3 (4.0-10.0)
[2021-07-23 07:53] LABS: BILIRUBIN,TOTAL 0.4 mg/dL (0.2-1); TOT PROT 6.1 g/dl (6.4-8.2)
[2021-07-23] MEDS ORDERED: PT OWN MED DRAWER 7, Y5N ONE (09:58)
[2021-07-23] MEDS: APIXABAN 5 MG TABLET PO SCH (10:03)
[2021-07-23] MEDS: SACUBITRIL/VALSARTAN 49 MG-51 MG TABLET PO SCH (10:03)
[2021-07-23] MEDS: CARVEDILOL 25 MG TABLET (FP) PO SCH (10:03)
[2021-07-23] MEDS: FINASTERIDE 5 MG TABLET (FP) PO SCH (10:03)
[2021-07-23] MEDS: SPIRONOLACTONE 25 MG TABLET PO SCH (10:03)
[2021-07-23] MEDS: FUROSEMIDE 40 MG/4 ML INJECTABLE VIAL IVPUSH SCH (10:04)
[2021-07-23] MEDS ORDERED: KCL 10 MEQ IVPB 10 MEQ/100 ML INFUS.BAG IVPB SCH (10:30)
[2021-07-23] MEDS ORDERED: POTASSIUM CHLORIDE TABS 20 MEQ TABLET.ER (FP) PO ONE (10:35)
[2021-07-23 14:25] VITALS: BP 110/65; PULSE 76; TEMP 98.7
[2021-07-24] MEDS ORDERED: FUROSEMIDE 40 MG TABLET (FP) PO SCH (10:00)
== END 2021-07-23 17:05 | disposition home or self-care (01) | DRG 291 ==
LOC: JER 19:09 → JERBED 22:05 → J4S 07-21 00:28
PROVIDERS: ADMIT Internal Medicine; ATTEND Internal Medicine
DX: I13.0 Hypertensive heart and chronic kidney disease with heart failure and stage 1 through stage 4 chronic kidney disease, or unspecified chronic kidney disease (principal); I50.23 Acute on chronic systolic (congestive) heart failure; N17.9 Acute kidney failure, unspecified; K52.1 Toxic gastroenteritis and colitis; I48.21 Permanent atrial fibrillation; C34.90 Malignant neoplasm of unspecified part of unspecified bronchus or lung; E78.5 Hyperlipidemia, unspecified; I25.10 Atherosclerotic heart disease of native coronary artery without angina pectoris; N40.0 Benign prostatic hyperplasia without lower urinary tract symptoms; C61 Malignant neoplasm of prostate; Z79.01 Long term (current) use of anticoagulants; Z95.810 Presence of automatic (implantable) cardiac defibrillator; T45.1X5A Adverse effect of antineoplastic and immunosuppressive drugs, initial encounter; E87.6 Hypokalemia; D63.8 Anemia in other chronic diseases classified elsewhere; D69.6 Thrombocytopenia, unspecified; R70.1 Abnormal plasma viscosity; Z98.61 Coronary angioplasty status; I42.0 Dilated cardiomyopathy; N18.30 Chronic kidney disease, stage 3 unspecified; N28.1 Cyst of kidney, acquired; C44.92 Squamous cell carcinoma of skin, unspecified; Z95.0 Presence of cardiac pacemaker
CPT/HCPCS: 36415; 71045-TC-FY; 74176-TC; 76775-TC; 80053; 81003; 82550; 82728; 82803; 83540; 83550; 83605; 83735; 83880; 84100; 84466; 84484; 85025; 85027; 85045; 85610; 85730; 86850; 86900; 86901; 87040; 87086; 93005; 93010; 93306-TC; 94761; 99285-25; C9803; Q9967; U0003; U0005

== ENCOUNTER 2021-08-01 07:02 | Day surgery (SDC) | payer BC, OTHER ==
[2021-08-01] MEDS ORDERED: MAGNESIUM 1GM/D5W - 1 GM/100 ML IVPB IVPB ONE (11:00)
[2021-08-01] MEDS ORDERED: D5-NS + 20 MEQ KCL - 20 MEQ/1,000 ML INFUS.BAG IV ONE (11:00)
[2021-08-01 11:45] LABS: BASO % 1.2 % (0-2.0); EOS % 1.2 % (0-4.5); HEMATOCRIT 27.4 % (35.4-49); HEMOGLOBIN 9.3 GM/dL (11.7-16.9); LYMPH % 5.3 % (8-40); MCH 32.1 pg (25.7-33.7); MCHC 33.8 g/dl (32.0-35.9); MEAN PLT VOLUME 8.6 fl (7.5-11.1); MONO % 8.9 % (3.8-10.2); NEUT % 83.4 % (42.8-82.8); PLATELET COUNT 144 10^3/uL (134-434); RBC 2.89 M/mm3 (4.00-5.60); WHITE BLOOD COUNT 2.8 K/mm3 (4.0-10.0)
[2021-08-01 12:03] LABS: CHLORIDE 104 mmol/L (98-107); SODIUM 138 mmol/L (136-145)
[2021-08-01 12:07] LABS: ANION GAP 4 MMOL/L (8-16); BLOOD UREA NITROGEN 29.9 mg/dL (7-18); CALCIUM 7.9 mg/dL (8.5-10.1); CO2 30 mmol/L (21-32); GLUCOSE,RANDOM 110 mg/dL (74-106); MAGNESIUM 2.1 mg/dL (1.8-2.4)
[2021-08-01 12:08] LABS: AMYLASE 37 U/L (25-115); BILIRUBIN,DIRECT 0.2 mg/dL (0.0-0.2); SGOT/AST 19 U/L (15-37)
[2021-08-01 12:10] LABS: BILIRUBIN,TOTAL 0.5 mg/dL (0.2-1); CREATININE 1.3 mg/dL (0.55-1.3); SGOT/AST 18 U/L (15-37); TOT PROT 7.1 g/dl (6.4-8.2)
[2021-08-01 12:11] LABS: ALK PHOS 89 U/L (45-117); BILIRUBIN,TOTAL 0.5 mg/dL (0.2-1); LDH 294 U/L (87-246); TOT PROT 7.1 g/dl (6.4-8.2)
[2021-08-01 12:12] LABS: ALK PHOS 88 U/L (45-117)
[2021-08-01 12:22] LABS: ALBUMIN 2.2 g/dl (3.4-5.0); SGPT/ALT < 6 U/L (13-61)
[2021-08-01 12:30] LABS: ALBUMIN 2.2 g/dl (3.4-5.0); SGPT/ALT < 6 U/L (13-61)
[2021-08-01 16:24] VITALS: TEMP 98.4
[2021-08-01 16:25] VITALS: BP 90/51; PULSE 89
== END 2021-08-01 15:30 | disposition home or self-care (01) ==
LOC: JONCNONCHE 07:02
PROVIDERS: ATTEND Internal Medicine Hematology & Oncology
PROC: 3E0337Z Introduction of Electrolytic and Water Balance Substance into Peripheral Vein, Percutaneous Approach (ICD-10-PCS; principal; 2021-08-01)
DX: C79.89 Secondary malignant neoplasm of other specified sites (principal); Z76.89 Persons encountering health services in other specified circumstances
CPT/HCPCS: 36415; 80053; 80076; 82150; 82533; 82607; 83615; 83735; 84439; 84443; 85025; 96360; 96361

== ENCOUNTER 2021-08-08 06:45 | Day surgery (SDC) | payer BC, OTHER ==
[2021-08-08] MEDS ORDERED: SODIUM CHLORIDE 250 ML IV ONE (09:00)
[2021-08-08] MEDS ORDERED: ONDANSETRON INJECTION 8 MG in SODIUM CHLORIDE 50 ML IVPB ONE (09:00)
[2021-08-08] MEDS ORDERED: CYANOCOBALAMIN (VITAMIN B-12) 1000 MCG/1 ML VIAL IM ONE (09:00)
[2021-08-08] MEDS ORDERED: CEMIPLIMAB RWLC IV ONE (09:30)
[2021-08-08] MEDS ORDERED: SODIUM CHLORIDE IV ONE (09:30)
[2021-08-08 12:49] VITALS: TEMP 98.8
[2021-08-08 12:50] VITALS: BP 127/80; PULSE 105
== END 2021-08-08 09:50 | disposition home or self-care (01) ==
LOC: JONCCHEMO 06:45
PROVIDERS: ATTEND Internal Medicine Hematology & Oncology
PROC: 3E03305 Introduction of Other Antineoplastic into Peripheral Vein, Percutaneous Approach (ICD-10-PCS; principal; 2021-08-08)
PROC: 3E013GC Introduction of Other Therapeutic Substance into Subcutaneous Tissue, Percutaneous Approach (ICD-10-PCS; 2021-08-08)
DX: Z51.11 Encounter for antineoplastic chemotherapy (principal); C44.92 Squamous cell carcinoma of skin, unspecified
CPT/HCPCS: 96361; 96372; 96375; 96413; J9119

== ENCOUNTER 2021-08-29 06:53 | Day surgery (SDC) | payer BC, OTHER ==
[2021-08-29] MEDS ORDERED: MAGNESIUM SULF 50% (8.12 MEQ/2 ML-1 GM VIAL) IVPB ONE (08:03)
[2021-08-29] MEDS ORDERED: CYANOCOBALAMIN (VITAMIN B-12) 1000 MCG/1 ML VIAL IM ONE (10:00)
[2021-08-29] MEDS ORDERED: MAGNESIUM SULFATE IN WATER 2 GM/50 ML IVPB IVPB ONE (10:00)
[2021-08-29] MEDS ORDERED: ONDANSETRON INJECTION 8 MG in SODIUM CHLORIDE 50 ML IVPB ONE (10:00)
[2021-08-29] MEDS ORDERED: SODIUM CHLORIDE 250 ML IV ONE (10:00)
[2021-08-29] MEDS ORDERED: SODIUM CHLORIDE IV ONE (10:30)
[2021-08-29] MEDS ORDERED: CEMIPLIMAB RWLC IV ONE (10:30)
[2021-08-29] MEDS: POTASSIUM CHLORIDE TABS 20 MEQ TABLET.ER (FP) PO SCH ×2 (10:34→11:30)
[2021-08-29 15:47] VITALS: BP 91/52; PULSE 90; TEMP 98.5
== END 2021-08-29 12:35 | disposition home or self-care (01) ==
LOC: JONCCHEMO 06:53
PROVIDERS: ATTEND Internal Medicine Hematology & Oncology
DX: Z51.11 Encounter for antineoplastic chemotherapy (principal); C44.92 Squamous cell carcinoma of skin, unspecified; C79.89 Secondary malignant neoplasm of other specified sites; Z85.46 Personal history of malignant neoplasm of prostate; D51.3 Other dietary vitamin B12 deficiency anemia; D61.818 Other pancytopenia
CPT/HCPCS: 96367; 96372; 96375; 96413; J9119

== ENCOUNTER 2021-09-11 07:44 | Inpatient (IN) | payer BC ==
[2021-09-11 08:59] LABS: BASO % 0.9 % (0-2.0); EOS % 0.5 % (0-4.5); HEMOGLOBIN 9.6 GM/dL (11.7-16.9); LYMPH % 4.4 % (8-40); MCHC 33.2 g/dl (32.0-35.9); MEAN CELL VOLUME 93.5 fl (80-96); MONO % 7.4 % (3.8-10.2); NEUT % 86.8 % (42.8-82.8); PLATELET COUNT 140 10^3/uL (134-434); RDW 17.3 % (11.9-15.9); WHITE BLOOD COUNT 3.9 K/mm3 (4.0-10.0)
[2021-09-11 09:08] LABS: INR 1.37 (0.83-1.09); PROTHROMBIN TIME (PATIENT) 15.4 SEC (9.7-13.0)
[2021-09-11 09:10] LABS: ACTIVATED PTT 22.1 SECONDS (25.2-36.5)
[2021-09-11 09:22] LABS: ALBUMIN 2.1 g/dl (3.4-5.0); BLOOD UREA NITROGEN 18.5 mg/dL (7-18)
[2021-09-11 09:23] LABS: MAGNESIUM 1.6 mg/dL (1.8-2.4)
[2021-09-11 09:27] LABS: BILIRUBIN,TOTAL 0.8 mg/dL (0.2-1); TOT PROT 7.3 g/dl (6.4-8.2)
[2021-09-11 09:33] LABS: N-TERMINAL BNP 15748.9 pg/ml (5-125)
[2021-09-11] MEDS ORDERED: METOPROLOL TARTRATE 5 MG/5 ML VIAL IVPUSH ONE (11:43)
[2021-09-11] MEDS ORDERED: CARVEDILOL 12.5 MG TABLET (FP) ONE ×2 (12:21→21:58)
[2021-09-11] MEDS ORDERED: METOPROLOL TARTRATE 5 MG/5 ML VIAL ONE (12:21)
[2021-09-11] MEDS: CARVEDILOL 25 MG TABLET (FP) PO SCH ×2 (12:23→22:01)
[2021-09-11] MEDS: SPIRONOLACTONE 25 MG TABLET PO SCH (19:41)
[2021-09-11] MEDS ORDERED: APIXABAN 5 MG TABLET ONE (21:58)
[2021-09-11] MEDS ORDERED: TAMSULOSIN HCL 0.4 MG CAP ONE (21:59)
[2021-09-11] MEDS ORDERED: TAMSULOSIN HCL 0.4 MG CAP PO SCH (22:00)
[2021-09-11] MEDS: ATORVASTATIN CA 20 MG TABLET (FP) PO SCH (22:01)
[2021-09-11] MEDS: APIXABAN 5 MG TABLET PO SCH (22:01)
[2021-09-11] MEDS ORDERED: ATORVASTATIN CA 20 MG TABLET (FP) ONE (22:02)
[2021-09-11] MEDS: SACUBITRIL/VALSARTAN 49 MG-51 MG TABLET PO SCH (22:12)
[2021-09-12] MEDS ORDERED: FUROSEMIDE 40 MG/4 ML INJECTABLE VIAL ONE ×2 (06:22→13:52)
[2021-09-12] MEDS: FUROSEMIDE 40 MG/4 ML INJECTABLE VIAL IVPUSH SCH ×2 (06:27→14:09)
[2021-09-12 06:45] LABS: VENOUS BASE EXCESS 2.5 mmol/L (-2-2); VENOUS O2 SATURATION 82.3 % (70-80); VENOUS PCO2 53.9 mmHg (38-52); VENOUS PH 7.346 (7.310-7.410)
[2021-09-12 06:51] LABS: BASO % 0.4 % (0-2.0); EOS % 1.6 % (0-4.5); HEMATOCRIT 24.6 % (35.4-49); HEMOGLOBIN 8.1 GM/dL (11.7-16.9); LYMPH % 6.2 % (8-40); MCH 31.3 pg (25.7-33.7); MCHC 33.1 g/dl (32.0-35.9); MEAN CELL VOLUME 94.7 fl (80-96); MEAN PLT VOLUME 8.3 fl (7.5-11.1); MONO % 10.9 % (3.8-10.2); NEUT % 80.9 % (42.8-82.8); PLATELET COUNT 89 10^3/uL (134-434); RDW 17.1 % (11.9-15.9); WHITE BLOOD COUNT 2.2 K/mm3 (4.0-10.0)
[2021-09-12 07:04] LABS: CALCIUM 8.4 mg/dL (8.5-10.1)
[2021-09-12 07:05] LABS: ALBUMIN 1.7 g/dl (3.4-5.0); BLOOD UREA NITROGEN 21.6 mg/dL (7-18); MAGNESIUM 1.7 mg/dL (1.8-2.4)
[2021-09-12 07:08] LABS: CREATININE 1.1 mg/dL (0.55-1.3); PHOSPHOROUS 3.9 mg/dL (2.5-4.9)
[2021-09-12 07:10] LABS: BILIRUBIN,TOTAL 0.4 mg/dL (0.2-1); TOT PROT 6.2 g/dl (6.4-8.2)
[2021-09-12] MEDS ORDERED: MAGNESIUM SULF 50% (8.12 MEQ/2 ML-1 GM VIAL) IVPB ONE (08:30)
[2021-09-12] MEDS: ALLOPURINOL 100 MG TABLET (FP) PO SCH (09:45)
[2021-09-12] MEDS: SACUBITRIL/VALSARTAN 49 MG-51 MG TABLET PO SCH ×2 (09:45→22:26)
[2021-09-12] MEDS: SPIRONOLACTONE 25 MG TABLET PO SCH (09:45)
[2021-09-12] MEDS: CARVEDILOL 25 MG TABLET (FP) PO SCH ×2 (09:45→22:26)
[2021-09-12] MEDS ORDERED: FINASTERIDE 5 MG TABLET (FP) PO SCH (10:00)
[2021-09-12] MEDS ORDERED: ASPIRIN 81 MG CHEWABLE TABLETS PO SCH (10:00)
[2021-09-12] MEDS ORDERED: CARVEDILOL 12.5 MG TABLET (FP) ONE (10:01)
[2021-09-12] MEDS ORDERED: MAGNESIUM SULFATE IN WATER 2 GM/50 ML IVPB IVPB ONE (10:02)
[2021-09-12] MEDS ORDERED: SPIRONOLACTONE 25 MG TABLET ONE (10:02)
[2021-09-12] MEDS: APIXABAN 5 MG TABLET PO SCH ×2 (10:33→22:26)
[2021-09-12 18:24] VITALS: BMI 22.3
[2021-09-12] MEDS ORDERED: FLU VACC QS2021-22(6MOS UP)/PF 60 MCG/0.5 ML SYRINGE IM ONE (18:24)
[2021-09-12] MEDS: ATORVASTATIN CA 20 MG TABLET (FP) PO SCH (22:26)
[2021-09-13 08:30] LABS: HEMATOCRIT 25.2 % (35.4-49); HEMOGLOBIN 8.4 GM/dL (11.7-16.9); MCH 31.5 pg (25.7-33.7); MCHC 33.5 g/dl (32.0-35.9); MEAN CELL VOLUME 94.1 fl (80-96); MEAN PLT VOLUME 7.9 fl (7.5-11.1); PLATELET COUNT 86 10^3/uL (134-434); RBC 2.67 M/mm3 (4.00-5.60); RDW 16.9 % (11.9-15.9); WHITE BLOOD COUNT 2.2 K/mm3 (4.0-10.0)
[2021-09-13 08:40] LABS: CALCIUM 7.6 mg/dL (8.5-10.1); MAGNESIUM 1.9 mg/dL (1.8-2.4)
[2021-09-13 08:43] LABS: BLOOD UREA NITROGEN 19.8 mg/dL (7-18)
[2021-09-13 08:46] LABS: PHOSPHOROUS 3.4 mg/dL (2.5-4.9)
[2021-09-13] MEDS ORDERED: PT OWN MED DRAWER 7, Y5N ONE ×2 (08:57→19:48)
[2021-09-13] MEDS: CARVEDILOL 25 MG TABLET (FP) PO SCH ×2 (09:32→21:39)
[2021-09-13] MEDS: SACUBITRIL/VALSARTAN 49 MG-51 MG TABLET PO SCH ×2 (09:32→21:40)
[2021-09-13] MEDS: ALLOPURINOL 100 MG TABLET (FP) PO SCH (09:32)
[2021-09-13] MEDS: SPIRONOLACTONE 25 MG TABLET PO SCH (09:32)
[2021-09-13] MEDS: FUROSEMIDE 20 MG TABLET (FP) PO SCH (09:32)
[2021-09-13] MEDS ORDERED: POTASSIUM CHLORIDE ORAL LIQUID 20 MEQ/15 ML PO ONE (09:49)
[2021-09-13] MEDS: ATORVASTATIN CA 20 MG TABLET (FP) PO SCH (21:39)
[2021-09-14 08:01] LABS: HEMATOCRIT 24.2 % (35.4-49); HEMOGLOBIN 8.2 GM/dL (11.7-16.9); MCH 31.8 pg (25.7-33.7); MEAN CELL VOLUME 93.4 fl (80-96); MEAN PLT VOLUME 8.3 fl (7.5-11.1); PLATELET COUNT 92 10^3/uL (134-434); RBC 2.59 M/mm3 (4.00-5.60); RDW 16.9 % (11.9-15.9); WHITE BLOOD COUNT 2.3 K/mm3 (4.0-10.0)
[2021-09-14 08:19] LABS: CALCIUM 7.5 mg/dL (8.5-10.1)
[2021-09-14] MEDS ORDERED: PT OWN MED DRAWER 7, Y5N ONE ×2 (09:24→21:22)
[2021-09-14] MEDS: CARVEDILOL 25 MG TABLET (FP) PO SCH ×2 (10:16→21:25)
[2021-09-14] MEDS: SPIRONOLACTONE 25 MG TABLET PO SCH (10:16)
[2021-09-14] MEDS: FUROSEMIDE 20 MG TABLET (FP) PO SCH (10:16)
[2021-09-14] MEDS: SACUBITRIL/VALSARTAN 49 MG-51 MG TABLET PO SCH ×2 (10:16→21:25)
[2021-09-14] MEDS: ALLOPURINOL 100 MG TABLET (FP) PO SCH (10:16)
[2021-09-14 11:35] LABS: MAGNESIUM 1.9 mg/dL (1.8-2.4)
[2021-09-14] MEDS ORDERED: LOPERAMIDE HCL 2 MG CAPSULE PO ONE (17:07)
[2021-09-14] MEDS: ATORVASTATIN CA 20 MG TABLET (FP) PO SCH (21:25)
[2021-09-15 08:36] LABS: HEMATOCRIT 24.4 % (35.4-49); HEMOGLOBIN 8.1 GM/dL (11.7-16.9); MCH 31.3 pg (25.7-33.7); MCHC 33.4 g/dl (32.0-35.9); MEAN CELL VOLUME 93.6 fl (80-96); PLATELET COUNT 96 10^3/uL (134-434); RDW 17.3 % (11.9-15.9); WHITE BLOOD COUNT 2.8 K/mm3 (4.0-10.0)
[2021-09-15 09:00] LABS: BLOOD UREA NITROGEN 19.6 mg/dL (7-18)
[2021-09-15 09:02] LABS: CREATININE 0.9 mg/dL (0.55-1.3)
[2021-09-15 09:04] LABS: PHOSPHOROUS 2.8 mg/dL (2.5-4.9)
[2021-09-15] MEDS ORDERED: PT OWN MED DRAWER 7, Y5N ONE ×4 (09:35→21:03)
[2021-09-15] MEDS ORDERED: MULTIVITAMINS THER W-MINERALS COMBO TABLET (FP) PO SCH (10:00)
[2021-09-15] MEDS: ALLOPURINOL 100 MG TABLET (FP) PO SCH (11:02)
[2021-09-15] MEDS: MULTIVITAMINS THER W-MINERALS COMBO TABLET (FP) PO SCH (11:02)
[2021-09-15] MEDS: SACUBITRIL/VALSARTAN 49 MG-51 MG TABLET PO SCH ×2 (11:03→21:21)
[2021-09-15] MEDS: FUROSEMIDE 20 MG TABLET (FP) PO SCH (11:04)
[2021-09-15] MEDS: SPIRONOLACTONE 25 MG TABLET PO SCH (11:04)
[2021-09-15] MEDS: CARVEDILOL 25 MG TABLET (FP) PO SCH ×2 (11:05→21:21)
[2021-09-15 16:42] LABS: BF WBC & OTHER NUCLEATED CELLS 580 /mm3
[2021-09-15] MEDS: LOPERAMIDE HCL 2 MG CAPSULE PO PRN (18:20)
[2021-09-15 18:22] LABS: BODY FLUID MACROPHAGES 7 %; BODY FLUID MESOTHELIAL 2 %; BODY FLUID MONOCYTE 6 %
[2021-09-15] MEDS: APIXABAN 5 MG TABLET PO SCH (21:21)
[2021-09-15] MEDS: ATORVASTATIN CA 20 MG TABLET (FP) PO SCH (21:21)
[2021-09-16 07:04] LABS: HEMATOCRIT 25.8 % (35.4-49); HEMOGLOBIN 8.7 GM/dL (11.7-16.9); MCH 31.5 pg (25.7-33.7); MCHC 33.6 g/dl (32.0-35.9); MEAN CELL VOLUME 93.9 fl (80-96); MEAN PLT VOLUME 8.2 fl (7.5-11.1); PLATELET COUNT 94 10^3/uL (134-434); RBC 2.75 M/mm3 (4.00-5.60); RDW 17.2 % (11.9-15.9); WHITE BLOOD COUNT 2.5 K/mm3 (4.0-10.0)
[2021-09-16 07:29] LABS: ALBUMIN 1.7 g/dl (3.4-5.0); CALCIUM 7.7 mg/dL (8.5-10.1)
[2021-09-16 07:30] LABS: BLOOD UREA NITROGEN 18.8 mg/dL (7-18)
[2021-09-16 07:32] LABS: CREATININE 0.9 mg/dL (0.55-1.3)
[2021-09-16 07:34] LABS: BILIRUBIN,TOTAL 0.6 mg/dL (0.2-1); TOT PROT 6.2 g/dl (6.4-8.2)
[2021-09-16] MEDS ORDERED: PT OWN MED DRAWER 7, Y5N ONE ×2 (11:19→11:47)
[2021-09-16] MEDS: FUROSEMIDE 20 MG TABLET (FP) PO SCH (11:43)
[2021-09-16] MEDS: APIXABAN 5 MG TABLET PO SCH (11:43)
[2021-09-16] MEDS: SACUBITRIL/VALSARTAN 49 MG-51 MG TABLET PO SCH (11:43)
[2021-09-16] MEDS: SPIRONOLACTONE 25 MG TABLET PO SCH (11:43)
[2021-09-16] MEDS: MULTIVITAMINS THER W-MINERALS COMBO TABLET (FP) PO SCH (11:44)
[2021-09-16] MEDS: ALLOPURINOL 100 MG TABLET (FP) PO SCH (11:44)
[2021-09-16] MEDS: CARVEDILOL 25 MG TABLET (FP) PO SCH (11:44)
[2021-09-16] MEDS: LOPERAMIDE HCL 2 MG CAPSULE PO PRN (11:47)
[2021-09-16 13:03] VITALS: BP 102/48; TEMP 98.1
[2021-09-16 15:53] VITALS: PULSE 114
[2021-09-17 14:10] LABS: BODY FLUID ALBUMIN 1.4 g/dL (Not Estab.)
== END 2021-09-16 17:59 | disposition home or self-care (01) | DRG 186 ==
LOC: JER 07:44 → JERBED 08:17 → J4W 09-12 16:48
PROVIDERS: ATTEND Internal Medicine
PROC: 0W993ZZ Drainage of Right Pleural Cavity, Percutaneous Approach (ICD-10-PCS; principal; 2021-09-15)
DX: J90 Pleural effusion, not elsewhere classified (principal); I50.23 Acute on chronic systolic (congestive) heart failure; I13.0 Hypertensive heart and chronic kidney disease with heart failure and stage 1 through stage 4 chronic kidney disease, or unspecified chronic kidney disease; I48.19 Other persistent atrial fibrillation; D61.818 Other pancytopenia; I42.8 Other cardiomyopathies; C78.00 Secondary malignant neoplasm of unspecified lung; N18.9 Chronic kidney disease, unspecified; E78.5 Hyperlipidemia, unspecified; N40.0 Benign prostatic hyperplasia without lower urinary tract symptoms; C61 Malignant neoplasm of prostate; I27.20 Pulmonary hypertension, unspecified; I25.10 Atherosclerotic heart disease of native coronary artery without angina pectoris; R59.0 Localized enlarged lymph nodes; R00.0 Tachycardia, unspecified; M10.9 Gout, unspecified; Z95.5 Presence of coronary angioplasty implant and graft; Z85.46 Personal history of malignant neoplasm of prostate; Z85.828 Personal history of other malignant neoplasm of skin; Z96.642 Presence of left artificial hip joint; Z95.810 Presence of automatic (implantable) cardiac defibrillator
CPT/HCPCS: 36415; 71045-TC-FY; 71046-TC-FY; 71275-TC; 76942; 80048; 80053; 82042; 82150; 82465; 82550; 82803; 82945; 83615; 83735; 83880; 83986; 84100; 84157; 84478; 84484; 85025; 85027; 85610; 85730; 86850; 86900; 86901; 87070; 87075; 87102; 87116; 87205; 87206; 87210; 88108; 88305-TC; 90686; 93005; 93010; 94761; 97116-GP; 97162-GP; 99285-25; C9803; G0008; Q9967; U0003; U0005

== ENCOUNTER 2021-10-02 08:02 | Inpatient (IN) | payer BC, OTHER ==
[2021-10-02 08:19] VITALS: BMI 23.1
[2021-10-02 09:34] LABS: VENOUS BASE EXCESS 0.1 mmol/L (-2-2); VENOUS O2 SATURATION 77.5 % (70-80); VENOUS PCO2 36.3 mmHg (38-52); VENOUS PH 7.44 (7.310-7.410)
[2021-10-02 09:42] LABS: BASO % 0.5 % (0-2.0); EOS % 0.4 % (0-4.5); HEMATOCRIT 27.2 % (35.4-49); LYMPH % 5.5 % (8-40); MCHC 33.1 g/dl (32.0-35.9); MEAN CELL VOLUME 93.8 fl (80-96); MONO % 7.2 % (3.8-10.2); NEUT % 86.4 % (42.8-82.8); PLATELET COUNT 129 10^3/uL (134-434); RDW 17.5 % (11.9-15.9); WHITE BLOOD COUNT 3.6 K/mm3 (4.0-10.0)
[2021-10-02 09:51] LABS: CALCIUM 8.2 mg/dL (8.5-10.1); INR 1.43 (0.83-1.09); PROTHROMBIN TIME (PATIENT) 16.1 SEC (9.7-13.0)
[2021-10-02 09:53] LABS: ACTIVATED PTT 27.8 SECONDS (25.2-36.5)
[2021-10-02 09:55] LABS: CREATININE 0.9 mg/dL (0.55-1.3)
[2021-10-02 09:56] LABS: BILIRUBIN,TOTAL 0.8 mg/dL (0.2-1)
[2021-10-02 09:57] LABS: TOT PROT 6.9 g/dl (6.4-8.2)
[2021-10-02 10:00] LABS: N-TERMINAL BNP 12845.3 pg/ml (5-125)
[2021-10-02] MEDS ORDERED: FUROSEMIDE 40 MG/4 ML INJECTABLE VIAL IVPUSH ONE (12:56)
[2021-10-02] MEDS ORDERED: FUROSEMIDE 40 MG/4 ML INJECTABLE VIAL ONE (13:16)
[2021-10-02] MEDS ORDERED: TAMSULOSIN HCL 0.4 MG CAP PO SCH (22:00)
[2021-10-02] MEDS ORDERED: APIXABAN 5 MG TABLET PO SCH (22:00)
[2021-10-03] MEDS: CARVEDILOL 25 MG TABLET (FP) PO SCH ×3 (00:15→21:31)
[2021-10-03] MEDS: ATORVASTATIN CA 20 MG TABLET (FP) PO SCH ×2 (00:15→21:31)
[2021-10-03] MEDS: SACUBITRIL/VALSARTAN 49 MG-51 MG TABLET PO SCH ×3 (00:56→21:31)
[2021-10-03 07:43] LABS: BASO % 0.6 % (0-2.0); EOS % 0.6 % (0-4.5); HEMATOCRIT 24.7 % (35.4-49); HEMOGLOBIN 8.4 GM/dL (11.7-16.9); MCHC 33.9 g/dl (32.0-35.9); MEAN CELL VOLUME 91.5 fl (80-96); MEAN PLT VOLUME 7.9 fl (7.5-11.1); MONO % 5.6 % (3.8-10.2); NEUT % 88.2 % (42.8-82.8); PLATELET COUNT 103 10^3/uL (134-434); RDW 17.5 % (11.9-15.9); WHITE BLOOD COUNT 3.2 K/mm3 (4.0-10.0)
[2021-10-03 07:51] LABS: CALCIUM 8.1 mg/dL (8.5-10.1)
[2021-10-03 07:52] LABS: ALBUMIN 1.8 g/dl (3.4-5.0); MAGNESIUM 1.9 mg/dL (1.8-2.4)
[2021-10-03 07:55] LABS: CREATININE 1.1 mg/dL (0.55-1.3); PHOSPHOROUS 3.6 mg/dL (2.5-4.9)
[2021-10-03 07:57] LABS: BILIRUBIN,TOTAL 0.7 mg/dL (0.2-1); TOT PROT 6.5 g/dl (6.4-8.2)
[2021-10-03] MEDS ORDERED: FINASTERIDE 5 MG TABLET (FP) PO SCH (10:00)
[2021-10-03] MEDS: ALLOPURINOL 100 MG TABLET (FP) PO SCH (11:41)
[2021-10-03] MEDS: FUROSEMIDE 40 MG/4 ML INJECTABLE VIAL IVPUSH SCH (11:41)
[2021-10-03] MEDS: ASPIRIN 81 MG CHEWABLE TABLETS PO SCH ×2 (11:42)
[2021-10-03] MEDS ORDERED: PT OWN MED DRAWER 7, Y5N ONE (21:11)
[2021-10-03] MEDS: APIXABAN 5 MG TABLET PO SCH (21:31)
[2021-10-04] MEDS: FUROSEMIDE 40 MG/4 ML INJECTABLE VIAL IVPUSH SCH (09:26)
[2021-10-04] MEDS: SACUBITRIL/VALSARTAN 49 MG-51 MG TABLET PO SCH (09:27)
[2021-10-04] MEDS: CARVEDILOL 25 MG TABLET (FP) PO SCH (09:28)
[2021-10-04] MEDS: ALLOPURINOL 100 MG TABLET (FP) PO SCH (09:34)
[2021-10-04] MEDS: APIXABAN 5 MG TABLET PO SCH (09:34)
[2021-10-04] MEDS ORDERED: SPIRONOLACTONE 25 MG TABLET PO SCH (10:00)
[2021-10-04 11:40] LABS: BASO % 0.4 % (0-2.0); EOS % 1.1 % (0-4.5); HEMATOCRIT 24.7 % (35.4-49); HEMOGLOBIN 8.2 GM/dL (11.7-16.9); LYMPH % 4.5 % (8-40); MCH 31.7 pg (25.7-33.7); MCHC 33.2 g/dl (32.0-35.9); MEAN CELL VOLUME 95.3 fl (80-96); MEAN PLT VOLUME 8.3 fl (7.5-11.1); MONO % 6.9 % (3.8-10.2); NEUT % 87.1 % (42.8-82.8); PLATELET COUNT 113 10^3/uL (134-434); RBC 2.59 M/mm3 (4.00-5.60); RDW 17.5 % (11.9-15.9)
[2021-10-04 11:56] LABS: BLOOD UREA NITROGEN 27.6 mg/dL (7-18); CALCIUM 7.8 mg/dL (8.5-10.1)
[2021-10-04 12:02] VITALS: BP 104/61; PULSE 88; TEMP 97.9
[2021-10-04] MEDS ORDERED: BACITRACIN 15 GM TUBE TOPICAL OINTMENT TP SCH (14:00)
== END 2021-10-04 18:12 | disposition home or self-care (01) | DRG 291 ==
LOC: JER 08:02 → JERBED 09:35 → J4W 23:55
PROVIDERS: ADMIT Internal Medicine; ATTEND Internal Medicine
DX: I13.0 Hypertensive heart and chronic kidney disease with heart failure and stage 1 through stage 4 chronic kidney disease, or unspecified chronic kidney disease (principal); J96.01 Acute respiratory failure with hypoxia; I50.23 Acute on chronic systolic (congestive) heart failure; I50.22 Chronic systolic (congestive) heart failure; I48.19 Other persistent atrial fibrillation; D61.818 Other pancytopenia; C79.89 Secondary malignant neoplasm of other specified sites; C78.00 Secondary malignant neoplasm of unspecified lung; I25.10 Atherosclerotic heart disease of native coronary artery without angina pectoris; I27.20 Pulmonary hypertension, unspecified; M10.9 Gout, unspecified; F32.A Depression, unspecified; N40.0 Benign prostatic hyperplasia without lower urinary tract symptoms; I11.0 Hypertensive heart disease with heart failure; Z95.0 Presence of cardiac pacemaker; Z79.01 Long term (current) use of anticoagulants; C61 Malignant neoplasm of prostate; D64.9 Anemia, unspecified; I42.0 Dilated cardiomyopathy; N18.9 Chronic kidney disease, unspecified; Z91.51 Personal history of suicidal behavior; C44.82 Squamous cell carcinoma of overlapping sites of skin; R22.2 Localized swelling, mass and lump, trunk
CPT/HCPCS: 36415; 71045-TC-FY; 71275-TC; 80048; 80053; 82550; 82803; 83735; 83880; 84100; 84484; 85025; 85610; 85730; 87070; 87205; 93005; 93010; 94761; 99285-25; C9803; U0003; U0005

== ENCOUNTER 2021-10-06 05:08 | Day surgery (SDC) | payer BC, OTHER ==
[2021-10-06 10:06] VITALS: BMI 21.1
[2021-10-06] MEDS ORDERED: SODIUM CHLORIDE 500 ML IV ONE (12:15)
[2021-10-06] MEDS ORDERED: MIDAZOLAM HCL 2 MG/2 ML SINGLE DOSE VIAL ONE (12:25)
[2021-10-06] MEDS ORDERED: MIDAZOLAM HCL 2 MG/2 ML SINGLE DOSE VIAL IVPUSH ONE (12:30)
[2021-10-06 16:56] VITALS: TEMP 97.8
[2021-10-06 17:20] VITALS: BP 117/63; PULSE 83
== END 2021-10-06 15:40 | disposition home or self-care (01) ==
LOC: JRADIR 05:08
PROVIDERS: ATTEND Nurse Practitioner Family
PROC: 02HV33Z Insertion of Infusion Device into Superior Vena Cava, Percutaneous Approach (ICD-10-PCS; principal; 2021-10-06)
PROC: B518ZZA Fluoroscopy of Superior Vena Cava, Guidance (ICD-10-PCS; 2021-10-06)
DX: C44.92 Squamous cell carcinoma of skin, unspecified (principal); C78.00 Secondary malignant neoplasm of unspecified lung; C79.89 Secondary malignant neoplasm of other specified sites
CPT/HCPCS: 36561; 77001-TC-FY; C1788

== ENCOUNTER 2021-10-08 15:07 | Day surgery (SDC) | payer BC ==
[2021-10-08 11:20] LABS: BASO % 0.8 % (0-2.0); EOS % 0.6 % (0-4.5); HEMATOCRIT 25.3 % (35.4-49); HEMOGLOBIN 8.5 GM/dL (11.7-16.9); LYMPH % 7.7 % (8-40); MCH 31.3 pg (25.7-33.7); MCHC 33.5 g/dl (32.0-35.9); MEAN CELL VOLUME 93.6 fl (80-96); MEAN PLT VOLUME 8.1 fl (7.5-11.1); MONO % 8.3 % (3.8-10.2); NEUT % 82.6 % (42.8-82.8); PLATELET COUNT 119 10^3/uL (134-434); RDW 17.6 % (11.9-15.9); WHITE BLOOD COUNT 3.5 K/mm3 (4.0-10.0)
[2021-10-08 11:44] LABS: CALCIUM 7.8 mg/dL (8.5-10.1)
[2021-10-08 11:45] LABS: BLOOD UREA NITROGEN 23.1 mg/dL (7-18); MAGNESIUM 1.8 mg/dL (1.8-2.4)
[2021-10-08 11:47] LABS: BILIRUBIN,DIRECT 0.3 mg/dL (0.0-0.2)
[2021-10-08 11:48] LABS: CREATININE 1.1 mg/dL (0.55-1.3)
[2021-10-08 11:49] LABS: BILIRUBIN,TOTAL 0.6 mg/dL (0.2-1); TOT PROT 6.8 g/dl (6.4-8.2)
[~2021-10-08 15:07] MED LIST: ACETAMINOPHEN 325 MG TABLET (FP) PO ONE; CARBOPLATIN IVPB ONE; CYANOCOBALAMIN (VITAMIN B-12) 1000 MCG/1 ML VIAL IM ONE; D5 IV ONE; DEXAMETHASONE INJECTION 20 MG in SODIUM CHLORIDE 100 ML IVPB ONE; DEXAMETHASONE SOD PHOSPHATE 10 MG/1 ML VIAL IVPB ONE; DEXAMETHASONE SODIUM PHOSPHATE 10 MG, DIPHENHYDRAMINE 25 MG in SODIUM CHLORIDE 100 ML IVPB ONE; FAMOTIDINE 20 MG/50 ML IVPB 20 MG/50 ML MG IVPB ONE; KCL IV ONE; PACLITAXEL 120 MG in SODIUM CHLORIDE 250 ML IVPB ONE; PALONOSETRON HCL 0.25 MG/5 ML VIAL IVPUSH ONE; SODIUM CHLORIDE 250 ML IV ONE; SODIUM CHLORIDE IVPB ONE; [UNRECOGNIZED DRUG - OTHER] IV ONE
[2021-10-08 17:20] VITALS: TEMP 97.8
[2021-10-08] MEDS ORDERED: PORTA CATH FLUSH 10 ML IVPUSH ONE (17:20)
[2021-10-08 18:06] VITALS: BP 113/68; PULSE 83
== END 2021-10-08 18:46 | disposition home or self-care (01) ==
LOC: JONCCHEMO 15:07
PROVIDERS: ATTEND Internal Medicine Hematology & Oncology
DX: Z51.11 Encounter for antineoplastic chemotherapy (principal); C44.92 Squamous cell carcinoma of skin, unspecified; C79.89 Secondary malignant neoplasm of other specified sites; D51.3 Other dietary vitamin B12 deficiency anemia; Z85.46 Personal history of malignant neoplasm of prostate
CPT/HCPCS: 36415; 80048; 80076; 82378; 82607; 83735; 85025; 96361; 96367; 96372; 96375; 96413; 96417; J1100; J2469

== ENCOUNTER 2021-10-11 16:28 | Inpatient (IN) | payer BC, OTHER ==
[2021-10-11 16:53] VITALS: BMI 22.3
[2021-10-11 17:42] LABS: BASO % 0.5 % (0-2.0); EOS % 0.9 % (0-4.5); HEMATOCRIT 26.1 % (35.4-49); HEMOGLOBIN 8.8 GM/dL (11.7-16.9); LYMPH % 4.4 % (8-40); MCH 31.4 pg (25.7-33.7); MCHC 33.5 g/dl (32.0-35.9); MEAN CELL VOLUME 93.7 fl (80-96); MEAN PLT VOLUME 8.3 fl (7.5-11.1); MONO % 2.4 % (3.8-10.2); NEUT % 91.8 % (42.8-82.8); PLATELET COUNT 101 10^3/uL (134-434); RBC 2.79 M/mm3 (4.00-5.60); RDW 17.6 % (11.9-15.9); WHITE BLOOD COUNT 2.7 K/mm3 (4.0-10.0)
[2021-10-11 17:51] LABS: INR 1.57 (0.83-1.09); PROTHROMBIN TIME (PATIENT) 18.4 SEC (9.7-13.0)
[2021-10-11 17:54] LABS: ACTIVATED PTT 29.8 SECONDS (25.2-36.5)
[2021-10-11] MEDS ORDERED: POTASSIUM CHLORIDE TABS 20 MEQ TABLET.ER (FP) PO ONE ×3 (18:03→22:01)
[2021-10-11 18:04] LABS: ALBUMIN 1.9 g/dl (3.4-5.0); CALCIUM 7.7 mg/dL (8.5-10.1)
[2021-10-11 18:05] LABS: BLOOD UREA NITROGEN 35.3 mg/dL (7-18); MAGNESIUM 1.9 mg/dL (1.8-2.4)
[2021-10-11 18:08] LABS: CREATININE 1.2 mg/dL (0.55-1.3)
[2021-10-11 18:09] LABS: BILIRUBIN,TOTAL 0.6 mg/dL (0.2-1); TOT PROT 6.3 g/dl (6.4-8.2)
[2021-10-11] MEDS ORDERED: ASPIRIN 81 MG CHEWABLE TABLETS PO ONE (18:22)
[2021-10-11] MEDS ORDERED: ASPIRIN 81 MG CHEWABLE TABLETS ONE (18:26)
[2021-10-11 19:31] LABS: ANISOCYTOSIS 2+; MACROCYTOSIS 0; PLATELET ESTIMATE DECREASED
[2021-10-11] MEDS ORDERED: FENTANYL PATCH WASTE MC PRN (19:37)
[2021-10-11] MEDS ORDERED: APIXABAN 5 MG TABLET ONE (21:50)
[2021-10-11] MEDS ORDERED: ATORVASTATIN CA 20 MG TABLET (FP) ONE (21:50)
[2021-10-11] MEDS: APIXABAN 5 MG TABLET PO SCH (21:53)
[2021-10-11] MEDS: BACITRACIN 15 GM TUBE TOPICAL OINTMENT TP SCH (21:53)
[2021-10-11] MEDS ORDERED: ATORVASTATIN CA 20 MG TABLET (FP) PO SCH (22:00)
[2021-10-12 08:08] LABS: HEMOGLOBIN 8.5 GM/dL (11.7-16.9); MCH 31.6 pg (25.7-33.7); MCHC 34.1 g/dl (32.0-35.9); MEAN CELL VOLUME 92.7 fl (80-96); MEAN PLT VOLUME 8.7 fl (7.5-11.1); PLATELET COUNT 91 10^3/uL (134-434); RDW 17.4 % (11.9-15.9); WHITE BLOOD COUNT 2.5 K/mm3 (4.0-10.0)
[2021-10-12 08:25] LABS: BLOOD UREA NITROGEN 33.4 mg/dL (7-18); CALCIUM 7.7 mg/dL (8.5-10.1)
[2021-10-12 08:26] LABS: ALBUMIN 1.9 g/dl (3.4-5.0); BILIRUBIN,TOTAL 0.7 mg/dL (0.2-1); MAGNESIUM 1.6 mg/dL (1.8-2.4); TOT PROT 6.2 g/dl (6.4-8.2)
[2021-10-12 08:28] LABS: CREATININE 1.1 mg/dL (0.55-1.3); PHOSPHOROUS 2.3 mg/dL (2.5-4.9)
[2021-10-12 09:32] LABS: ANISOCYTOSIS 1+; MACROCYTOSIS 0; OVALOCYTE 1+; PLATELET ESTIMATE DECREASED
[2021-10-12] MEDS: APIXABAN 5 MG TABLET PO SCH ×2 (09:57→21:23)
[2021-10-12] MEDS: ALLOPURINOL 100 MG TABLET (FP) PO SCH (09:57)
[2021-10-12] MEDS: SPIRONOLACTONE 25 MG TABLET PO SCH (09:57)
[2021-10-12] MEDS: BACITRACIN 15 GM TUBE TOPICAL OINTMENT TP SCH (09:58)
[2021-10-12] MEDS: FUROSEMIDE 40 MG/4 ML INJECTABLE VIAL IVPUSH SCH (13:42)
[2021-10-12] MEDS: CARVEDILOL 3.125 MG TABLET (FP) PO SCH ×2 (14:58→21:23)
[2021-10-12] MEDS ORDERED: DEXTROSE 5%-WATER - 50 ML IVPB ONE (18:03)
[2021-10-12] MEDS ORDERED: PIPERACILLIN/TAZOBACTAM 3.375 GM VIAL IVPB ONE (18:03)
[2021-10-12] MEDS: PIPERACILLIN/TAZOB 3.375 GM 3.375 GM in DEXTROSE 5%-WATER - 50 ML IVPB SCH (18:09)
[2021-10-12 19:22] LABS: PH,URINE 7.5 (5.0-8.0); URINE APPEARANCE CLEAR; URINE BILIRUBIN NEGATIVE (NEGATIVE); URINE COLOR YELLOW; URINE GLUCOSE (UA) NEGATIVE (NEGATIVE); URINE KETONE NEGATIVE (NEGATIVE); URINE LEUK ESTERASE NEGATIVE (NEGATIVE); URINE NITRITE NEGATIVE (NEGATIVE); URINE PROTEIN NEGATIVE (NEGATIVE)
[2021-10-12] MEDS: ATORVASTATIN CA 80 MG TABLET (FP) PO SCH (21:23)
[2021-10-12] MEDS: SACUBITRIL/VALSARTAN 24 MG-26 MG TABLET PO SCH (21:23)
[2021-10-13] MEDS ORDERED: PIPERACILLIN/TAZOBACTAM 3.375 GM VIAL IVPB ONE ×3 (01:06→17:03)
[2021-10-13] MEDS ORDERED: DEXTROSE 5%-WATER - 50 ML IVPB ONE ×3 (01:07→17:03)
[2021-10-13] MEDS: PIPERACILLIN/TAZOB 3.375 GM 3.375 GM in DEXTROSE 5%-WATER - 50 ML IVPB SCH ×4 (01:43→18:05)
[2021-10-13 07:32] LABS: BASO % 0.6 % (0-2.0); EOS % 1.4 % (0-4.5); HEMATOCRIT 29.5 % (35.4-49); HEMOGLOBIN 9.8 GM/dL (11.7-16.9); LYMPH % 6.9 % (8-40); MCHC 33.3 g/dl (32.0-35.9); MEAN CELL VOLUME 93.2 fl (80-96); MEAN PLT VOLUME 8.4 fl (7.5-11.1); MONO % 2.8 % (3.8-10.2); NEUT % 88.3 % (42.8-82.8); PLATELET COUNT 95 10^3/uL (134-434); RBC 3.17 M/mm3 (4.00-5.60); RDW 17.6 % (11.9-15.9)
[2021-10-13 08:02] LABS: CALCIUM 7.8 mg/dL (8.5-10.1)
[2021-10-13 08:05] LABS: CREATININE 1.2 mg/dL (0.55-1.3)
[2021-10-13 08:07] LABS: TOT PROT 6.6 g/dl (6.4-8.2)
[2021-10-13 08:08] LABS: BILIRUBIN,TOTAL 0.9 mg/dL (0.2-1)
[2021-10-13 08:22] LABS: MAGNESIUM 1.7 mg/dL (1.8-2.4)
[2021-10-13 08:26] LABS: PHOSPHOROUS 2.7 mg/dL (2.5-4.9)
[2021-10-13] MEDS: CARVEDILOL 3.125 MG TABLET (FP) PO SCH ×2 (09:43→21:35)
[2021-10-13] MEDS: ALLOPURINOL 100 MG TABLET (FP) PO SCH (09:43)
[2021-10-13] MEDS: APIXABAN 5 MG TABLET PO SCH ×2 (09:43→21:35)
[2021-10-13] MEDS: SACUBITRIL/VALSARTAN 24 MG-26 MG TABLET PO SCH ×2 (09:43→21:36)
[2021-10-13] MEDS: SPIRONOLACTONE 25 MG TABLET PO SCH (09:43)
[2021-10-13] MEDS: BACITRACIN 15 GM TUBE TOPICAL OINTMENT TP SCH (10:39)
[2021-10-13] MEDS: FUROSEMIDE 40 MG/4 ML INJECTABLE VIAL IVPUSH SCH (10:40)
[2021-10-13] MEDS ORDERED: POTASSIUM CHLORIDE TABS 20 MEQ TABLET.ER (FP) PO ONE (11:00)
[2021-10-13] MEDS: ATORVASTATIN CA 80 MG TABLET (FP) PO SCH (21:35)
[2021-10-14] MEDS ORDERED: DEXTROSE 5%-WATER - 50 ML IVPB ONE ×3 (00:39→17:01)
[2021-10-14] MEDS ORDERED: PIPERACILLIN/TAZOBACTAM 3.375 GM VIAL IVPB ONE ×3 (00:39→17:01)
[2021-10-14] MEDS: PIPERACILLIN/TAZOB 3.375 GM 3.375 GM in DEXTROSE 5%-WATER - 50 ML IVPB SCH ×3 (01:39→18:06)
[2021-10-14 07:49] LABS: HEMATOCRIT 25.1 % (35.4-49); HEMOGLOBIN 8.4 GM/dL (11.7-16.9); MCH 31.4 pg (25.7-33.7); MCHC 33.7 g/dl (32.0-35.9); MEAN CELL VOLUME 93.3 fl (80-96); MEAN PLT VOLUME 8.4 fl (7.5-11.1); PLATELET COUNT 83 10^3/uL (134-434); RBC 2.69 M/mm3 (4.00-5.60); RDW 17.3 % (11.9-15.9)
[2021-10-14 08:35] LABS: WHITE BLOOD COUNT 1.6 K/mm3 (4.0-10.0)
[2021-10-14] MEDS: CARVEDILOL 3.125 MG TABLET (FP) PO SCH ×2 (09:37→21:22)
[2021-10-14] MEDS: FUROSEMIDE 40 MG/4 ML INJECTABLE VIAL IVPUSH SCH (09:37)
[2021-10-14] MEDS: SPIRONOLACTONE 25 MG TABLET PO SCH (09:37)
[2021-10-14] MEDS: ALLOPURINOL 100 MG TABLET (FP) PO SCH (09:38)
[2021-10-14] MEDS: APIXABAN 5 MG TABLET PO SCH ×2 (09:38→21:22)
[2021-10-14] MEDS: SACUBITRIL/VALSARTAN 24 MG-26 MG TABLET PO SCH ×2 (09:38→21:22)
[2021-10-14] MEDS: BACITRACIN 15 GM TUBE TOPICAL OINTMENT TP SCH (09:38)
[2021-10-14 09:53] LABS: ALBUMIN 1.9 g/dl (3.4-5.0); BLOOD UREA NITROGEN 27.1 mg/dL (7-18); CALCIUM 7.9 mg/dL (8.5-10.1); CREATININE 1.1 mg/dL (0.55-1.3); TOT PROT 6.3 g/dl (6.4-8.2)
[2021-10-14] MEDS ORDERED: ALLOPURINOL 100 MG TABLET (FP) PO SCH (11:39)
[2021-10-14] MEDS: FUROSEMIDE 20 MG TABLET (FP) PO SCH (13:29)
[2021-10-14] MEDS: TBO-FILGRASTIM 300 MCG/0.5 ML DISP.SYRINGE SQ SCH (13:30)
[2021-10-14 19:03] LABS: PH,URINE 6.5 (5.0-8.0); URINE APPEARANCE CLEAR; URINE BILIRUBIN NEGATIVE (NEGATIVE); URINE COLOR YELLOW; URINE GLUCOSE (UA) NEGATIVE (NEGATIVE); URINE KETONE NEGATIVE (NEGATIVE); URINE LEUK ESTERASE NEGATIVE (NEGATIVE); URINE NITRITE NEGATIVE (NEGATIVE); URINE PROTEIN NEGATIVE (NEGATIVE); URINE UROBILINOGEN 0.2 mg/dL (0.2-1.0)
[2021-10-14] MEDS: ATORVASTATIN CA 80 MG TABLET (FP) PO SCH (21:22)
[2021-10-15] MEDS ORDERED: DEXTROSE 5%-WATER - 50 ML IVPB ONE ×2 (01:33→09:58)
[2021-10-15] MEDS ORDERED: PIPERACILLIN/TAZOBACTAM 3.375 GM VIAL IVPB ONE ×2 (01:33→09:58)
[2021-10-15] MEDS: PIPERACILLIN/TAZOB 3.375 GM 3.375 GM in DEXTROSE 5%-WATER - 50 ML IVPB SCH ×2 (01:46→10:04)
[2021-10-15 09:10] LABS: BASO % 0.5 % (0-2.0); EOS % 1.6 % (0-4.5); HEMATOCRIT 28.1 % (35.4-49); HEMOGLOBIN 9.4 GM/dL (11.7-16.9); LYMPH % 7.6 % (8-40); MCH 31.2 pg (25.7-33.7); MCHC 33.5 g/dl (32.0-35.9); MEAN CELL VOLUME 92.9 fl (80-96); MEAN PLT VOLUME 8.6 fl (7.5-11.1); MONO % 1.5 % (3.8-10.2); NEUT % 88.8 % (42.8-82.8); PLATELET COUNT 110 10^3/uL (134-434); RBC 3.02 M/mm3 (4.00-5.60); RDW 17.2 % (11.9-15.9); WHITE BLOOD COUNT 3.9 K/mm3 (4.0-10.0)
[2021-10-15] MEDS: SPIRONOLACTONE 25 MG TABLET PO SCH (10:06)
[2021-10-15] MEDS: CARVEDILOL 3.125 MG TABLET (FP) PO SCH (10:06)
[2021-10-15] MEDS: SACUBITRIL/VALSARTAN 24 MG-26 MG TABLET PO SCH (10:06)
[2021-10-15] MEDS: FUROSEMIDE 20 MG TABLET (FP) PO SCH (10:06)
[2021-10-15] MEDS: APIXABAN 5 MG TABLET PO SCH (10:06)
[2021-10-15] MEDS: BACITRACIN 15 GM TUBE TOPICAL OINTMENT TP SCH (10:07)
[2021-10-15] MEDS ORDERED: PT OWN MED DRAWER 7, Y5N ONE (10:10)
[2021-10-15 11:39] LABS: ALBUMIN 2.2 g/dl (3.4-5.0); BILIRUBIN,TOTAL 0.9 mg/dL (0.2-1); BLOOD UREA NITROGEN 31.6 mg/dL (7-18); CALCIUM 8.2 mg/dL (8.5-10.1); CREATININE 1.3 mg/dL (0.55-1.3); MAGNESIUM 1.7 mg/dL (1.8-2.4); PHOSPHOROUS 3.2 mg/dL (2.5-4.9)
[2021-10-15] MEDS: TBO-FILGRASTIM 300 MCG/0.5 ML DISP.SYRINGE SQ SCH (12:02)
[2021-10-15 14:02] VITALS: BP 91/37; PULSE 105; TEMP 97.8
[2021-10-17 23:20] LABS: BILIRUBIN,TOTAL 0.6 mg/dL (0.2-1)
== END 2021-10-15 17:01 | disposition home or self-care (01) | DRG 69 ==
LOC: JER 16:28 → JERBED 16:54 → J4S 23:23
PROVIDERS: ADMIT Internal Medicine
DX: G45.9 Transient cerebral ischemic attack, unspecified (principal); I42.0 Dilated cardiomyopathy; J90 Pleural effusion, not elsewhere classified; I12.0 Hypertensive chronic kidney disease with stage 5 chronic kidney disease or end stage renal disease; I50.22 Chronic systolic (congestive) heart failure; E78.5 Hyperlipidemia, unspecified; Z98.61 Coronary angioplasty status; I27.20 Pulmonary hypertension, unspecified; N40.0 Benign prostatic hyperplasia without lower urinary tract symptoms; I48.91 Unspecified atrial fibrillation; D70.1 Agranulocytosis secondary to cancer chemotherapy; I25.119 Atherosclerotic heart disease of native coronary artery with unspecified angina pectoris; N18.9 Chronic kidney disease, unspecified; E87.6 Hypokalemia
CPT/HCPCS: 36415; 70450-TC; 71045-TC-FY; 80053; 80061; 81003; 82607; 82962; 83735; 84100; 84443; 84484; 85025; 85027; 85610; 85730; 87040; 87086; 93005; 93010; 93306-TC; 93880-TC; 97116-GP; 99285-25; C9803; J1447; U0003; U0005

== ENCOUNTER 2021-10-26 18:33 | Inpatient (IN) | payer BC, OTHER ==
[2021-10-26] MEDS ORDERED: SODIUM CHLORIDE 250 ML IV STA (19:32)
[2021-10-26] MEDS ORDERED: PIPERACILLIN/TAZOB 4.5 GM 4.5 GM in DEXTROSE 5%-WATER 100 ML IVPB ONE (19:36)
[2021-10-26] MEDS ORDERED: VANCOMYCIN 1 GM in D5W (PRE-DOCKED) 1,000 MG/250 ML IVPB ONE (19:36)
[2021-10-26 20:02] LABS: HEMATOCRIT 17.9 % (35.4-49); MCH 31.4 pg (25.7-33.7); MCHC 33.5 g/dl (32.0-35.9); MEAN CELL VOLUME 93.9 fl (80-96); MEAN PLT VOLUME 8.2 fl (7.5-11.1); RDW 17.8 % (11.9-15.9)
[2021-10-26] MEDS ORDERED: PIPERACILLIN/TAZOB 4.5 GM 4.5 GM/100 ML BAG IVPB ONE (20:02)
[2021-10-26] MEDS ORDERED: VANCOMYCIN 1 GRAM (PRE-DOCKED) 1,000 MG/250 ML BAG IVPB ONE (20:03)
[2021-10-26 20:15] LABS: PLATELET COUNT 26 10^3/uL (134-434); WHITE BLOOD COUNT 1.1 K/mm3 (4.0-10.0)
[2021-10-26 20:56] LABS: ANISOCYTOSIS 2+; MACROCYTOSIS 0; PLATELET ESTIMATE DECREASED; TARGET CELLS 1+
[2021-10-26 21:36] LABS: BILIRUBIN,TOTAL 0.4 mg/dL (0.2-1); BLOOD UREA NITROGEN 31.6 mg/dL (7-18); CALCIUM 7.7 mg/dL (8.5-10.1); CREATININE 1.3 mg/dL (0.55-1.3); MAGNESIUM 1.8 mg/dL (1.8-2.4); N-TERMINAL BNP 8476.4 pg/ml (5-125); TOT PROT 6.7 g/dl (6.4-8.2)
[2021-10-26] MEDS ORDERED: ACETAMINOPHEN 325 MG TABLET (FP) PO PRN (23:02)
[2021-10-26] MEDS ORDERED: DEXAMETHASONE SOD PHOSPHATE 10 MG/1 ML VIAL IVPUSH ONE (23:37)
[2021-10-26 23:43] LABS: INR 1.8 (0.83-1.09); PROTHROMBIN TIME (PATIENT) 20.3 SEC (9.7-13.0)
[2021-10-26 23:46] LABS: ACTIVATED PTT 29.9 SECONDS (25.2-36.5)
[2021-10-26] MEDS ORDERED: PROCHLORPERAZINE INJECTION 10 MG/2 ML VIAL IVPB PRN (23:59)
[2021-10-27] MEDS ORDERED: REMDESIVIR 200 MG in SODIUM CHLORIDE 210 ML IVPB ONE (03:00)
[2021-10-27 08:05] LABS: HEMOGLOBIN 7.8 GM/dL (11.7-16.9); MCH 31.3 pg (25.7-33.7); MCHC 33.9 g/dl (32.0-35.9); MEAN CELL VOLUME 92.6 fl (80-96); MEAN PLT VOLUME 8.1 fl (7.5-11.1); RBC 2.48 M/mm3 (4.00-5.60); RDW 18.3 % (11.9-15.9)
[2021-10-27 08:18] LABS: PLATELET COUNT 25 10^3/uL (134-434)
[2021-10-27 08:27] LABS: CALCIUM 7.6 mg/dL (8.5-10.1)
[2021-10-27 08:28] LABS: BLOOD UREA NITROGEN 30.6 mg/dL (7-18); MAGNESIUM 1.7 mg/dL (1.8-2.4)
[2021-10-27 08:29] LABS: BILIRUBIN,TOTAL 0.7 mg/dL (0.2-1); TOT PROT 6.6 g/dl (6.4-8.2)
[2021-10-27 08:30] LABS: CREATININE 1.2 mg/dL (0.55-1.3); PHOSPHOROUS 3.7 mg/dL (2.5-4.9)
[2021-10-27] MEDS: ZINC SULFATE 220 MG CAPSULE (FP) PO SCH (10:00)
[2021-10-27] MEDS ORDERED: CEFTRIAXONE 1 GM in DEXTROSE 5%-WATER - 50 ML IVPB SCH (10:00)
[2021-10-27 10:15] LABS: ANISOCYTOSIS 0; HELMET CELLS 0; HOWELL-JOLLY BODIES 0; MACROCYTOSIS 0; OVALOCYTE 0; PLATELET ESTIMATE DECREASED; ROULEAU 0; SICKELED CELLS 0; TARGET CELLS 0; TEAR DROP CELLS 0; TOXIC GRANULATION 0
[2021-10-27] MEDS: DOXYCYCLINE INJECTION 100 MG in DEXTROSE 5%-WATER 100 ML IVPB SCH ×2 (10:15→23:16)
[2021-10-27] MEDS ORDERED: ASCORBIC ACID 500 MG TABLET (FP) ONE ×2 (10:16→22:41)
[2021-10-27] MEDS ORDERED: DOXYCYCLINE HYCLATE 100 MG VIAL ONE (10:16)
[2021-10-27] MEDS ORDERED: ZINC SULFATE 220 MG CAPSULE (FP) ONE (10:16)
[2021-10-27] MEDS ORDERED: CEFTRIAXONE 1 GM/50 ML BAG ONE (10:17)
[2021-10-27] MEDS: CHOLECALCIFEROL (VIT D3) 1,000 UNIT (25 MCG) TABLET PO SCH (10:30)
[2021-10-27] MEDS: ASCORBIC ACID 500 MG TABLET (FP) PO SCH ×2 (10:30→23:16)
[2021-10-27] MEDS ORDERED: FUROSEMIDE 40 MG TABLET (FP) ONE (12:27)
[2021-10-27] MEDS ORDERED: SPIRONOLACTONE 25 MG TABLET ONE (12:27)
[2021-10-27] MEDS ORDERED: CARVEDILOL 12.5 MG TABLET (FP) ONE ×2 (12:27→22:42)
[2021-10-27] MEDS: SPIRONOLACTONE 25 MG TABLET PO SCH (12:30)
[2021-10-27] MEDS: FUROSEMIDE 40 MG TABLET (FP) PO SCH (12:30)
[2021-10-27] MEDS: SACUBITRIL/VALSARTAN 49 MG-51 MG TABLET PO SCH ×2 (12:30→23:16)
[2021-10-27] MEDS: ALLOPURINOL 100 MG TABLET (FP) PO SCH (12:30)
[2021-10-27] MEDS: CARVEDILOL 12.5 MG TABLET (FP) PO SCH ×2 (12:30→23:16)
[2021-10-27] MEDS ORDERED: CYANOCOBALAMIN (VITAMIN B-12) 1000 MCG/1 ML VIAL IM ONE (14:46)
[2021-10-27] MEDS: DEXAMETHASONE SOD PHOSPHATE 10 MG/1 ML VIAL IVPUSH SCH (19:05)
[2021-10-27] MEDS: TBO-FILGRASTIM 480 MCG/0.8 ML DISP.SYRIN SQ SCH (19:05)
[2021-10-27] MEDS: CEFEPIME 1 GM in DEXTROSE 5%-WATER - 1 GM/50 ML IVPB IVPB SCH (19:06)
[2021-10-27] MEDS ORDERED: DEXAMETHASONE SOD PHOSPHATE 4 MG/1 ML VIAL ONE (19:08)
[2021-10-27] MEDS ORDERED: CEFEPIME 1 GM/100 ML BAG IVPB ONE (19:08)
[2021-10-27] MEDS ORDERED: ATORVASTATIN CA 20 MG TABLET (FP) PO SCH (22:00)
[2021-10-27] MEDS ORDERED: ATORVASTATIN CA 20 MG TABLET (FP) ONE (22:42)
[2021-10-28] MEDS ORDERED: REMDESIVIR 100 MG in SODIUM CHLORIDE 230 ML IVPB SCH (03:00)
[2021-10-28] MEDS ORDERED: REMDESIVIR 100 MG in SODIUM CHLORIDE 250 ML IVPB SCH (03:00)
[2021-10-28] MEDS: CEFEPIME 1 GM in DEXTROSE 5%-WATER - 1 GM/50 ML IVPB IVPB SCH ×3 (03:41→18:06)
[2021-10-28 06:55] LABS: HEMATOCRIT 23.9 % (35.4-49); HEMOGLOBIN 8.1 GM/dL (11.7-16.9); MCH 32.2 pg (25.7-33.7); MCHC 34.1 g/dl (32.0-35.9); MEAN CELL VOLUME 94.5 fl (80-96); MEAN PLT VOLUME 7.7 fl (7.5-11.1); RBC 2.53 M/mm3 (4.00-5.60); RDW 17.8 % (11.9-15.9)
[2021-10-28 07:25] LABS: WHITE BLOOD COUNT 1.5 K/mm3 (4.0-10.0)
[2021-10-28 07:26] LABS: PLATELET COUNT 25 10^3/uL (134-434)
[2021-10-28] MEDS ORDERED: CARVEDILOL 12.5 MG TABLET (FP) ONE (09:17)
[2021-10-28] MEDS ORDERED: ZINC SULFATE 220 MG CAPSULE (FP) ONE (09:17)
[2021-10-28] MEDS ORDERED: ASCORBIC ACID 500 MG TABLET (FP) ONE (09:17)
[2021-10-28] MEDS ORDERED: FUROSEMIDE 40 MG TABLET (FP) ONE (09:17)
[2021-10-28] MEDS ORDERED: CHOLECALCIFEROL (VIT D3) 1,000 UNIT (25 MCG) TABLET ONE (09:18)
[2021-10-28] MEDS ORDERED: SPIRONOLACTONE 25 MG TABLET ONE (09:18)
[2021-10-28] MEDS ORDERED: DEXAMETHASONE SOD PHOSPHATE 4 MG/1 ML VIAL ONE (09:18)
[2021-10-28] MEDS ORDERED: DOXYCYCLINE HYCLATE 100 MG VIAL ONE ×2 (09:24→20:37)
[2021-10-28] MEDS ORDERED: CEFEPIME 1 GM/100 ML BAG IVPB ONE (09:25)
[2021-10-28] MEDS: SPIRONOLACTONE 25 MG TABLET PO SCH (09:42)
[2021-10-28] MEDS: SACUBITRIL/VALSARTAN 49 MG-51 MG TABLET PO SCH ×2 (09:43→21:48)
[2021-10-28] MEDS: FUROSEMIDE 40 MG TABLET (FP) PO SCH (09:43)
[2021-10-28] MEDS: CARVEDILOL 12.5 MG TABLET (FP) PO SCH ×2 (09:43→21:48)
[2021-10-28] MEDS: DEXAMETHASONE SOD PHOSPHATE 10 MG/1 ML VIAL IVPUSH SCH (09:43)
[2021-10-28] MEDS: ALLOPURINOL 100 MG TABLET (FP) PO SCH (09:44)
[2021-10-28] MEDS: ASCORBIC ACID 500 MG TABLET (FP) PO SCH ×2 (09:44→21:47)
[2021-10-28] MEDS: ZINC SULFATE 220 MG CAPSULE (FP) PO SCH (09:44)
[2021-10-28] MEDS: CHOLECALCIFEROL (VIT D3) 1,000 UNIT (25 MCG) TABLET PO SCH (09:44)
[2021-10-28 09:51] LABS: ALBUMIN 1.8 g/dl (3.4-5.0); BILIRUBIN,TOTAL 0.7 mg/dL (0.2-1); BLOOD UREA NITROGEN 36.3 mg/dL (7-18); CALCIUM 7.7 mg/dL (8.5-10.1); CREATININE 1.2 mg/dL (0.55-1.3); MAGNESIUM 1.8 mg/dL (1.8-2.4); PHOSPHOROUS 4.3 mg/dL (2.5-4.9); TOT PROT 6.4 g/dl (6.4-8.2)
[2021-10-28] MEDS: TBO-FILGRASTIM 480 MCG/0.8 ML DISP.SYRIN SQ SCH (10:43)
[2021-10-28] MEDS: DOXYCYCLINE INJECTION 100 MG in DEXTROSE 5%-WATER 100 ML IVPB SCH ×2 (10:44→21:47)
[2021-10-28 11:44] LABS: ANISOCYTOSIS 0; MACROCYTOSIS 0; PLATELET ESTIMATE DECREASED; ROULEAU 1+; TEAR DROP CELLS 1+
[2021-10-28 11:52] LABS: URINE APPEARANCE CLEAR; URINE BILIRUBIN NEGATIVE (NEGATIVE); URINE COLOR YELLOW; URINE GLUCOSE (UA) NEGATIVE (NEGATIVE); URINE KETONE NEGATIVE (NEGATIVE); URINE LEUK ESTERASE NEGATIVE (NEGATIVE); URINE NITRITE NEGATIVE (NEGATIVE); URINE PROTEIN TRACE (NEGATIVE); URINE UROBILINOGEN 0.2 mg/dL (0.2-1.0)
[2021-10-28] MEDS ORDERED: ACETAMINOPHEN 325 MG TABLET (FP) PO PRN (16:05)
[2021-10-28] MEDS ORDERED: PROCHLORPERAZINE INJECTION 10 MG/2 ML VIAL IVPB PRN (16:05)
[2021-10-28] MEDS ORDERED: CEFEPIME HCL 1 GM VIAL (RESTRICTED TO ID) ONE (17:46)
[2021-10-28] MEDS ORDERED: DEXTROSE 5%-WATER - 50 ML IVPB ONE (17:46)
[2021-10-28] MEDS ORDERED: DEXTROSE 5%-WATER 100 ML IVPB ONE (20:37)
[2021-10-28] MEDS: ATORVASTATIN CA 20 MG TABLET (FP) PO SCH (21:47)
[2021-10-29] MEDS ORDERED: CEFEPIME HCL 1 GM VIAL (RESTRICTED TO ID) ONE ×2 (01:33→10:35)
[2021-10-29] MEDS ORDERED: DEXTROSE 5%-WATER - 50 ML IVPB ONE ×2 (01:33→10:35)
[2021-10-29] MEDS: CEFEPIME 1 GM in DEXTROSE 5%-WATER - 1 GM/50 ML IVPB IVPB SCH ×2 (01:37→11:30)
[2021-10-29] MEDS: REMDESIVIR 100 MG in SODIUM CHLORIDE 250 ML IVPB SCH (02:29)
[2021-10-29 09:16] LABS: HEMATOCRIT 26.3 % (35.4-49); HEMOGLOBIN 8.9 GM/dL (11.7-16.9); MCH 31.8 pg (25.7-33.7); MCHC 33.7 g/dl (32.0-35.9); MEAN CELL VOLUME 94.2 fl (80-96); MEAN PLT VOLUME 8.5 fl (7.5-11.1); RBC 2.79 M/mm3 (4.00-5.60); RDW 18.3 % (11.9-15.9)
[2021-10-29 09:46] LABS: PLATELET COUNT 29 10^3/uL (134-434); WHITE BLOOD COUNT 1.8 K/mm3 (4.0-10.0)
[2021-10-29] MEDS ORDERED: DEXTROSE 5%-WATER 100 ML IVPB ONE (10:34)
[2021-10-29] MEDS ORDERED: DOXYCYCLINE HYCLATE 100 MG VIAL ONE (10:34)
[2021-10-29] MEDS: SPIRONOLACTONE 25 MG TABLET PO SCH (11:27)
[2021-10-29] MEDS: CARVEDILOL 12.5 MG TABLET (FP) PO SCH ×3 (11:28→22:11)
[2021-10-29] MEDS: ASCORBIC ACID 500 MG TABLET (FP) PO SCH ×2 (11:29→22:02)
[2021-10-29] MEDS: DEXAMETHASONE SOD PHOSPHATE 10 MG/1 ML VIAL IVPUSH SCH (11:29)
[2021-10-29] MEDS: CHOLECALCIFEROL (VIT D3) 1,000 UNIT (25 MCG) TABLET PO SCH (11:29)
[2021-10-29] MEDS: SACUBITRIL/VALSARTAN 49 MG-51 MG TABLET PO SCH ×2 (11:30→22:03)
[2021-10-29] MEDS: ZINC SULFATE 220 MG CAPSULE (FP) PO SCH (11:30)
[2021-10-29] MEDS: DOXYCYCLINE INJECTION 100 MG in DEXTROSE 5%-WATER 100 ML IVPB SCH (11:30)
[2021-10-29] MEDS: FUROSEMIDE 40 MG TABLET (FP) PO SCH (11:31)
[2021-10-29 11:42] LABS: ALBUMIN 1.7 g/dl (3.4-5.0); BILIRUBIN,TOTAL 0.6 mg/dL (0.2-1); BLOOD UREA NITROGEN 49.1 mg/dL (7-18); CALCIUM 7.9 mg/dL (8.5-10.1); CREATININE 1.4 mg/dL (0.55-1.3); MAGNESIUM 1.7 mg/dL (1.8-2.4); PHOSPHOROUS 3.5 mg/dL (2.5-4.9); TOT PROT 6.3 g/dl (6.4-8.2)
[2021-10-29 11:56] LABS: ANISOCYTOSIS 0; HELMET CELLS 0; HOWELL-JOLLY BODIES 0; MACROCYTOSIS 0; OVALOCYTE 0; PLATELET ESTIMATE DECREASED; ROULEAU 0; SICKELED CELLS 0; TARGET CELLS 0; TEAR DROP CELLS 0; TOXIC GRANULATION 0
[2021-10-29] MEDS ORDERED: PT OWN MED DRAWER 7, Y5N ONE ×3 (16:45→21:47)
[2021-10-29] MEDS: ALLOPURINOL 100 MG TABLET (FP) PO SCH (16:52)
[2021-10-29] MEDS: TBO-FILGRASTIM 480 MCG/0.8 ML DISP.SYRIN SQ SCH (17:13)
[2021-10-29] MEDS: ATORVASTATIN CA 20 MG TABLET (FP) PO SCH (22:02)
[2021-10-30] MEDS: REMDESIVIR 100 MG in SODIUM CHLORIDE 250 ML IVPB SCH (02:45)
[2021-10-30 08:34] LABS: BASO % 0.2 % (0-2.0); EOS % 0.1 % (0-4.5); HEMATOCRIT 24.4 % (35.4-49); HEMOGLOBIN 8.1 GM/dL (11.7-16.9); LYMPH % 5.6 % (8-40); MCH 31.1 pg (25.7-33.7); MCHC 33.2 g/dl (32.0-35.9); MEAN CELL VOLUME 93.6 fl (80-96); MEAN PLT VOLUME 8.7 fl (7.5-11.1); NEUT % 88.1 % (42.8-82.8); RBC 2.61 M/mm3 (4.00-5.60); RDW 17.4 % (11.9-15.9)
[2021-10-30 08:53] LABS: ALBUMIN 1.6 g/dl (3.4-5.0); BLOOD UREA NITROGEN 50.8 mg/dL (7-18); CALCIUM 7.8 mg/dL (8.5-10.1)
[2021-10-30 08:56] LABS: CREATININE 1.2 mg/dL (0.55-1.3)
[2021-10-30 08:58] LABS: BILIRUBIN,TOTAL 0.5 mg/dL (0.2-1)
[2021-10-30 09:54] LABS: ANISOCYTOSIS 1+; MACROCYTOSIS 0; PLATELET ESTIMATE DECREASED
[2021-10-30 10:14] LABS: PLATELET COUNT 22 10^3/uL (134-434); WHITE BLOOD COUNT 1.1 K/mm3 (4.0-10.0)
[2021-10-30] MEDS ORDERED: PT OWN MED DRAWER 7, Y5N ONE (10:32)
[2021-10-30] MEDS: SPIRONOLACTONE 25 MG TABLET PO SCH (10:42)
[2021-10-30] MEDS: AMINO ACIDS/PROTEIN HYDROLYS 30 ML LIQUID.PKT PO SCH (10:42)
[2021-10-30] MEDS: SACUBITRIL/VALSARTAN 49 MG-51 MG TABLET PO SCH ×2 (10:43→22:16)
[2021-10-30] MEDS: CHOLECALCIFEROL (VIT D3) 1,000 UNIT (25 MCG) TABLET PO SCH (10:43)
[2021-10-30] MEDS: FUROSEMIDE 40 MG TABLET (FP) PO SCH (10:43)
[2021-10-30] MEDS: CARVEDILOL 12.5 MG TABLET (FP) PO SCH ×2 (10:43→22:16)
[2021-10-30] MEDS: ZINC SULFATE 220 MG CAPSULE (FP) PO SCH (10:43)
[2021-10-30] MEDS: ASCORBIC ACID 500 MG TABLET (FP) PO SCH ×2 (10:43→22:16)
[2021-10-30] MEDS: DEXAMETHASONE SOD PHOSPHATE 10 MG/1 ML VIAL IVPUSH SCH (10:44)
[2021-10-30] MEDS: ALLOPURINOL 100 MG TABLET (FP) PO SCH (10:44)
[2021-10-30] MEDS: TBO-FILGRASTIM 480 MCG/0.8 ML DISP.SYRIN SQ SCH (12:22)
[2021-10-30] MEDS: ATORVASTATIN CA 20 MG TABLET (FP) PO SCH (22:16)
[2021-10-31] MEDS: REMDESIVIR 100 MG in SODIUM CHLORIDE 250 ML IVPB SCH (03:49)
[2021-10-31 07:48] LABS: HEMATOCRIT 22.6 % (35.4-49); HEMOGLOBIN 7.6 GM/dL (11.7-16.9); MCH 32.1 pg (25.7-33.7); MCHC 33.6 g/dl (32.0-35.9); MEAN CELL VOLUME 95.7 fl (80-96); MEAN PLT VOLUME 8.6 fl (7.5-11.1); RBC 2.36 M/mm3 (4.00-5.60); RDW 18.5 % (11.9-15.9)
[2021-10-31 07:55] LABS: PLATELET COUNT 24 10^3/uL (134-434); WHITE BLOOD COUNT 1.1 K/mm3 (4.0-10.0)
[2021-10-31 08:12] LABS: ALBUMIN 1.6 g/dl (3.4-5.0); BLOOD UREA NITROGEN 50.8 mg/dL (7-18)
[2021-10-31 08:15] LABS: CREATININE 1.1 mg/dL (0.55-1.3)
[2021-10-31 08:17] LABS: BILIRUBIN,TOTAL 0.4 mg/dL (0.2-1); TOT PROT 5.8 g/dl (6.4-8.2)
[2021-10-31] MEDS ORDERED: PT OWN MED DRAWER 7, Y5N ONE (09:39)
[2021-10-31] MEDS: AMINO ACIDS/PROTEIN HYDROLYS 30 ML LIQUID.PKT PO SCH (09:58)
[2021-10-31] MEDS: ASCORBIC ACID 500 MG TABLET (FP) PO SCH ×2 (09:59→22:27)
[2021-10-31] MEDS: ALLOPURINOL 100 MG TABLET (FP) PO SCH (09:59)
[2021-10-31] MEDS: DEXAMETHASONE SOD PHOSPHATE 10 MG/1 ML VIAL IVPUSH SCH (09:59)
[2021-10-31] MEDS: CHOLECALCIFEROL (VIT D3) 1,000 UNIT (25 MCG) TABLET PO SCH (09:59)
[2021-10-31] MEDS: ZINC SULFATE 220 MG CAPSULE (FP) PO SCH (09:59)
[2021-10-31] MEDS: SPIRONOLACTONE 25 MG TABLET PO SCH (10:05)
[2021-10-31] MEDS: SACUBITRIL/VALSARTAN 49 MG-51 MG TABLET PO SCH ×2 (10:05→22:27)
[2021-10-31] MEDS: FUROSEMIDE 40 MG TABLET (FP) PO SCH (10:05)
[2021-10-31] MEDS: CARVEDILOL 12.5 MG TABLET (FP) PO SCH ×2 (10:05→22:27)
[2021-10-31] MEDS: TBO-FILGRASTIM 480 MCG/0.8 ML DISP.SYRIN SQ SCH (14:08)
[2021-10-31] MEDS: ATORVASTATIN CA 20 MG TABLET (FP) PO SCH (22:27)
[2021-11-01] MEDS: AMINO ACIDS/PROTEIN HYDROLYS 30 ML LIQUID.PKT PO SCH (08:19)
[2021-11-01 08:29] LABS: EOS % 0.7 % (0-4.5); HEMATOCRIT 22.7 % (35.4-49); HEMOGLOBIN 7.6 GM/dL (11.7-16.9); LYMPH % 4.3 % (8-40); MCH 31.5 pg (25.7-33.7); MCHC 33.7 g/dl (32.0-35.9); MEAN CELL VOLUME 93.7 fl (80-96); MEAN PLT VOLUME 8.9 fl (7.5-11.1); MONO % 4.4 % (3.8-10.2); NEUT % 90.6 % (42.8-82.8); RBC 2.42 M/mm3 (4.00-5.60); RDW 18.1 % (11.9-15.9)
[2021-11-01 08:43] LABS: ALBUMIN 1.8 g/dl (3.4-5.0); BLOOD UREA NITROGEN 46.3 mg/dL (7-18)
[2021-11-01 08:46] LABS: CREATININE 0.9 mg/dL (0.55-1.3)
[2021-11-01 08:48] LABS: BILIRUBIN,TOTAL 0.5 mg/dL (0.2-1); TOT PROT 5.8 g/dl (6.4-8.2)
[2021-11-01 08:49] LABS: WHITE BLOOD COUNT 1.9 K/mm3 (4.0-10.0)
[2021-11-01 08:51] LABS: PLATELET COUNT 24 10^3/uL (134-434)
[2021-11-01] MEDS: CHOLECALCIFEROL (VIT D3) 1,000 UNIT (25 MCG) TABLET PO SCH (11:11)
[2021-11-01] MEDS: ALLOPURINOL 100 MG TABLET (FP) PO SCH (11:11)
[2021-11-01] MEDS: ZINC SULFATE 220 MG CAPSULE (FP) PO SCH (11:12)
[2021-11-01] MEDS: ASCORBIC ACID 500 MG TABLET (FP) PO SCH ×2 (11:12→20:59)
[2021-11-01] MEDS: SPIRONOLACTONE 25 MG TABLET PO SCH (11:13)
[2021-11-01] MEDS: SACUBITRIL/VALSARTAN 49 MG-51 MG TABLET PO SCH ×2 (11:13→21:00)
[2021-11-01] MEDS: CARVEDILOL 12.5 MG TABLET (FP) PO SCH ×2 (11:13→21:00)
[2021-11-01] MEDS: DEXAMETHASONE SOD PHOSPHATE 10 MG/1 ML VIAL IVPUSH SCH (11:13)
[2021-11-01] MEDS: FUROSEMIDE 40 MG TABLET (FP) PO SCH (11:14)
[2021-11-01 11:32] LABS: ANISOCYTOSIS 0; HELMET CELLS 0; HOWELL-JOLLY BODIES 0; MACROCYTOSIS 0; OVALOCYTE 0; PLATELET ESTIMATE DECREASED; ROULEAU 0; SICKELED CELLS 0; TARGET CELLS 0; TEAR DROP CELLS 0; TOXIC GRANULATION 0
[2021-11-01] MEDS: TBO-FILGRASTIM 480 MCG/0.8 ML DISP.SYRIN SQ SCH (18:31)
[2021-11-01] MEDS ORDERED: PT OWN MED DRAWER 7, Y5N ONE (20:44)
[2021-11-01] MEDS: ATORVASTATIN CA 20 MG TABLET (FP) PO SCH (20:59)
[2021-11-02] MEDS: ALLOPURINOL 100 MG TABLET (FP) PO SCH (09:55)
[2021-11-02] MEDS: ZINC SULFATE 220 MG CAPSULE (FP) PO SCH (09:56)
[2021-11-02] MEDS: DEXAMETHASONE SOD PHOSPHATE 10 MG/1 ML VIAL IVPUSH SCH (09:56)
[2021-11-02] MEDS: CHOLECALCIFEROL (VIT D3) 1,000 UNIT (25 MCG) TABLET PO SCH (09:56)
[2021-11-02] MEDS: ASCORBIC ACID 500 MG TABLET (FP) PO SCH ×2 (09:56→21:10)
[2021-11-02] MEDS: SPIRONOLACTONE 25 MG TABLET PO SCH (09:57)
[2021-11-02] MEDS: SACUBITRIL/VALSARTAN 49 MG-51 MG TABLET PO SCH ×2 (09:57→21:11)
[2021-11-02] MEDS: AMINO ACIDS/PROTEIN HYDROLYS 30 ML LIQUID.PKT PO SCH (09:57)
[2021-11-02] MEDS: CARVEDILOL 12.5 MG TABLET (FP) PO SCH ×2 (09:57→21:11)
[2021-11-02] MEDS: FUROSEMIDE 40 MG TABLET (FP) PO SCH (09:58)
[2021-11-02 10:30] LABS: HEMATOCRIT 24.2 % (35.4-49); MCH 31.4 pg (25.7-33.7); MCHC 33.2 g/dl (32.0-35.9); MEAN CELL VOLUME 94.6 fl (80-96); RBC 2.56 M/mm3 (4.00-5.60); RDW 18.2 % (11.9-15.9)
[2021-11-02 10:56] LABS: CALCIUM 8.2 mg/dL (8.5-10.1)
[2021-11-02 10:57] LABS: BLOOD UREA NITROGEN 41.3 mg/dL (7-18)
[2021-11-02 11:00] LABS: CREATININE 0.9 mg/dL (0.55-1.3)
[2021-11-02 11:24] LABS: ANISOCYTOSIS 0; HELMET CELLS 0; HOWELL-JOLLY BODIES 0; MACROCYTOSIS 0; OVALOCYTE 0; PLATELET ESTIMATE DECREASED; ROULEAU 0; SICKELED CELLS 0; TARGET CELLS 0; TEAR DROP CELLS 0; TOXIC GRANULATION 0
[2021-11-02 11:31] LABS: PLATELET COUNT 35 10^3/uL (134-434)
[2021-11-02] MEDS: TBO-FILGRASTIM 480 MCG/0.8 ML DISP.SYRIN SQ SCH (14:42)
[2021-11-02] MEDS: guaiFENesin 200 MG/10 ML 10 ML UNIT-DOSE CUPS PO PRN ×2 (16:18→22:29)
[2021-11-02 18:06] VITALS: BMI 21.2
[2021-11-02] MEDS: ATORVASTATIN CA 20 MG TABLET (FP) PO SCH (21:10)
[2021-11-03] MEDS: guaiFENesin 200 MG/10 ML 10 ML UNIT-DOSE CUPS PO PRN ×3 (05:46→21:59)
[2021-11-03] MEDS ORDERED: PT OWN MED DRAWER 7, Y5N ONE ×2 (10:24→10:50)
[2021-11-03] MEDS: AMINO ACIDS/PROTEIN HYDROLYS 30 ML LIQUID.PKT PO SCH (10:31)
[2021-11-03] MEDS: SPIRONOLACTONE 25 MG TABLET PO SCH (10:32)
[2021-11-03] MEDS: CARVEDILOL 12.5 MG TABLET (FP) PO SCH ×2 (10:32→21:59)
[2021-11-03] MEDS: SACUBITRIL/VALSARTAN 49 MG-51 MG TABLET PO SCH ×2 (10:32→21:59)
[2021-11-03] MEDS: FUROSEMIDE 40 MG TABLET (FP) PO SCH (10:33)
[2021-11-03] MEDS: ALLOPURINOL 100 MG TABLET (FP) PO SCH (10:34)
[2021-11-03] MEDS: CHOLECALCIFEROL (VIT D3) 1,000 UNIT (25 MCG) TABLET PO SCH (10:34)
[2021-11-03] MEDS: DEXAMETHASONE SOD PHOSPHATE 10 MG/1 ML VIAL IVPUSH SCH (10:35)
[2021-11-03] MEDS: ZINC SULFATE 220 MG CAPSULE (FP) PO SCH (10:35)
[2021-11-03] MEDS: ASCORBIC ACID 500 MG TABLET (FP) PO SCH ×2 (10:35→21:59)
[2021-11-03] MEDS: TBO-FILGRASTIM 480 MCG/0.8 ML DISP.SYRIN SQ SCH (10:54)
[2021-11-03] MEDS: ATORVASTATIN CA 20 MG TABLET (FP) PO SCH (21:59)
[2021-11-04 09:06] LABS: HEMATOCRIT 24.2 % (35.4-49); HEMOGLOBIN 8.1 GM/dL (11.7-16.9); MCHC 33.6 g/dl (32.0-35.9); MEAN CELL VOLUME 95.4 fl (80-96); MEAN PLT VOLUME 8.8 fl (7.5-11.1); PLATELET COUNT 57 10^3/uL (134-434); RBC 2.53 M/mm3 (4.00-5.60); RDW 18.1 % (11.9-15.9); WHITE BLOOD COUNT 4.5 K/mm3 (4.0-10.0)
[2021-11-04 09:29] LABS: CALCIUM 8.2 mg/dL (8.5-10.1)
[2021-11-04 09:31] LABS: ALBUMIN 1.8 g/dl (3.4-5.0); BLOOD UREA NITROGEN 27.9 mg/dL (7-18)
[2021-11-04 09:33] LABS: CREATININE 0.7 mg/dL (0.55-1.3)
[2021-11-04 09:34] LABS: BILIRUBIN,TOTAL 0.5 mg/dL (0.2-1); TOT PROT 6.1 g/dl (6.4-8.2)
[2021-11-04] MEDS ORDERED: PT OWN MED DRAWER 7, Y5N ONE ×2 (09:38→20:49)
[2021-11-04] MEDS: AMINO ACIDS/PROTEIN HYDROLYS 30 ML LIQUID.PKT PO SCH (09:43)
[2021-11-04] MEDS: CARVEDILOL 12.5 MG TABLET (FP) PO SCH ×2 (09:44→21:53)
[2021-11-04] MEDS: SACUBITRIL/VALSARTAN 49 MG-51 MG TABLET PO SCH ×2 (09:44→21:53)
[2021-11-04] MEDS: ASCORBIC ACID 500 MG TABLET (FP) PO SCH ×2 (09:45→21:53)
[2021-11-04] MEDS: FUROSEMIDE 40 MG TABLET (FP) PO SCH (09:45)
[2021-11-04] MEDS: ZINC SULFATE 220 MG CAPSULE (FP) PO SCH (09:45)
[2021-11-04] MEDS: CHOLECALCIFEROL (VIT D3) 1,000 UNIT (25 MCG) TABLET PO SCH (09:46)
[2021-11-04] MEDS: DEXAMETHASONE SOD PHOSPHATE 10 MG/1 ML VIAL IVPUSH SCH (09:47)
[2021-11-04] MEDS: ALLOPURINOL 100 MG TABLET (FP) PO SCH (09:47)
[2021-11-04] MEDS: guaiFENesin 200 MG/10 ML 10 ML UNIT-DOSE CUPS PO PRN ×2 (09:49→21:54)
[2021-11-04] MEDS: SPIRONOLACTONE 25 MG TABLET PO SCH (17:16)
[2021-11-04] MEDS: ATORVASTATIN CA 20 MG TABLET (FP) PO SCH (21:53)
[2021-11-05] MEDS: ASCORBIC ACID 500 MG TABLET (FP) PO SCH ×2 (09:44→22:06)
[2021-11-05] MEDS: DEXAMETHASONE SOD PHOSPHATE 10 MG/1 ML VIAL IVPUSH SCH (09:44)
[2021-11-05] MEDS: ZINC SULFATE 220 MG CAPSULE (FP) PO SCH (09:44)
[2021-11-05] MEDS: CHOLECALCIFEROL (VIT D3) 1,000 UNIT (25 MCG) TABLET PO SCH (09:44)
[2021-11-05] MEDS: ALLOPURINOL 100 MG TABLET (FP) PO SCH (09:44)
[2021-11-05] MEDS: AMINO ACIDS/PROTEIN HYDROLYS 30 ML LIQUID.PKT PO SCH (09:44)
[2021-11-05] MEDS: guaiFENesin 200 MG/10 ML 10 ML UNIT-DOSE CUPS PO PRN ×3 (09:44→22:07)
[2021-11-05] MEDS ORDERED: ENOXAPARIN NA (PORCINE) 40 MG/0.4 ML DISP.SYRIN SQ SCH (10:00)
[2021-11-05] MEDS: CARVEDILOL 12.5 MG TABLET (FP) PO SCH ×2 (11:26→22:06)
[2021-11-05] MEDS: SPIRONOLACTONE 25 MG TABLET PO SCH (11:26)
[2021-11-05] MEDS: SACUBITRIL/VALSARTAN 49 MG-51 MG TABLET PO SCH ×2 (11:27→22:06)
[2021-11-05] MEDS ORDERED: PT OWN MED DRAWER 7, Y5N ONE (21:26)
[2021-11-05] MEDS: ATORVASTATIN CA 20 MG TABLET (FP) PO SCH (22:06)
[2021-11-06] MEDS ORDERED: METOPROLOL TARTRATE 5 MG/5 ML VIAL IVPUSH PRN ×2 (07:33→09:20)
[2021-11-06] MEDS ORDERED: ESMOLOL 2500 MG/250 ML 2,500,000 MCG/250 ML INFUS.BAG IVPB SCH ×3 (08:00→09:20)
[2021-11-06 08:08] LABS: ARTERIAL BLD GAS O2 SATURATION 92.2 % (95-98); ARTERIAL BLOOD GAS BASE EXCESS -9.6 mmol/L (-2-2); ARTERIAL BLOOD GAS PO2 67.5 mmHg (80-100); ARTERIAL BLOOD GAS pH 7.315 (7.350-7.450)
[2021-11-06 08:14] LABS: ALLENS TEST POSITIVE
[2021-11-06] MEDS ORDERED: FUROSEMIDE 40 MG/4 ML INJECTABLE VIAL ONE (08:20)
[2021-11-06] MEDS ORDERED: FUROSEMIDE 40 MG/4 ML INJECTABLE VIAL IVPUSH ONE (08:21)
[2021-11-06] MEDS ORDERED: PROCHLORPERAZINE INJECTION 10 MG/2 ML VIAL IVPB PRN (09:20)
[2021-11-06] MEDS ORDERED: ACETAMINOPHEN 325 MG TABLET (FP) PO PRN ×3 (09:20→13:42)
[2021-11-06] MEDS ORDERED: guaiFENesin 200 MG/10 ML 10 ML UNIT-DOSE CUPS PO PRN (09:20)
[2021-11-06] MEDS: DEXAMETHASONE SOD PHOSPHATE 10 MG/1 ML VIAL IVPUSH SCH (09:55)
[2021-11-06] MEDS ORDERED: CARVEDILOL 12.5 MG TABLET (FP) PO SCH (10:00)
[2021-11-06] MEDS: ALLOPURINOL 100 MG TABLET (FP) PO SCH (11:38)
[2021-11-06] MEDS: SPIRONOLACTONE 25 MG TABLET PO SCH (11:38)
[2021-11-06] MEDS: ZINC SULFATE 220 MG CAPSULE (FP) PO SCH (11:38)
[2021-11-06] MEDS: ASCORBIC ACID 500 MG TABLET (FP) PO SCH ×2 (11:38→21:14)
[2021-11-06] MEDS: CHOLECALCIFEROL (VIT D3) 1,000 UNIT (25 MCG) TABLET PO SCH (11:38)
[2021-11-06 12:26] LABS: HEMATOCRIT 24.3 % (35.4-49); HEMOGLOBIN 7.9 GM/dL (11.7-16.9); MCH 31.1 pg (25.7-33.7); MCHC 32.6 g/dl (32.0-35.9); MEAN CELL VOLUME 95.4 fl (80-96); MEAN PLT VOLUME 8.1 fl (7.5-11.1); PLATELET COUNT 55 10^3/uL (134-434); RBC 2.55 M/mm3 (4.00-5.60); RDW 18.7 % (11.9-15.9); WHITE BLOOD COUNT 6.9 K/mm3 (4.0-10.0)
[2021-11-06 12:27] LABS: CALCIUM 7.5 mg/dL (8.5-10.1)
[2021-11-06 12:28] LABS: MAGNESIUM 1.9 mg/dL (1.8-2.4)
[2021-11-06 12:56] LABS: N-TERMINAL BNP 14417.4 pg/ml (5-125)
[2021-11-06] MEDS ORDERED: AMIODARONE IN DEXTROSE,ISO-OSM 150 MG/100 ML BAG IVPB ONE ×2 (13:30→20:21)
[2021-11-06] MEDS ORDERED: AMIODARONE IN DEXTROSE 150 MG/100 ML PREMIX BAG IVPB ONE (13:31)
[2021-11-06] MEDS ORDERED: AMIODARONE IN DEXTROSE,ISO-OSM 360 MG/200 ML BAG IVPB ONE (13:40)
[2021-11-06] MEDS: SACUBITRIL/VALSARTAN 49 MG-51 MG TABLET PO SCH ×2 (13:44→21:15)
[2021-11-06] MEDS: MUPIROCIN 2% TOPICAL OINTMENT FOR DECOLONIZATION NS SCH ×2 (13:44→21:15)
[2021-11-06] MEDS ORDERED: ACETAMINOPHEN 1000 MG/100 ML VIAL IVPB ONE (14:00)
[2021-11-06] MEDS ORDERED: AMIODARONE IN DEXTROSE,ISO-OSM 360 MG/200 ML BAG ONE (17:48)
[2021-11-06] MEDS ORDERED: AMIODARONE HCL INJECTION 450 MG in DEXTROSE 5%-WATER - 241 ML IVPB ONE (20:14)
[2021-11-06] MEDS ORDERED: AMIODARONE IN DEXTROSE,ISO-OSM 150 MG/100 ML BAG IVPB SCH (20:20)
[2021-11-06] MEDS: AMIODARONE IN DEXTROSE,ISO-OSM 360 MG/200 ML BAG IVPB ONE ×2 (20:25→20:57)
[2021-11-06] MEDS ORDERED: AMIODARONE IN DEXTROSE,ISO-OSM 360 MG/200 ML BAG IVPB SCH (20:30)
[2021-11-06] MEDS ORDERED: PT OWN MED DRAWER 7, Y5N ONE (21:12)
[2021-11-06] MEDS: ATORVASTATIN CA 20 MG TABLET (FP) PO SCH (21:14)
[2021-11-06] MEDS: CHLORHEXIDINE GLUCONATE 4% CLEANSER FOR DECOLONIZATION TP SCH (21:15)
[2021-11-07] MEDS ORDERED: AMIODARONE IN DEXTROSE,ISO-OSM 360 MG/200 ML BAG IVPB ONE (02:30)
[2021-11-07] MEDS ORDERED: ACETAMINOPHEN 325 MG TABLET (FP) PO ONE (04:30)
[2021-11-07 06:04] LABS: CHLORIDE 107 mmol/L (98-107); SODIUM 140 mmol/L (136-145)
[2021-11-07 06:06] LABS: CALCIUM 7.9 mg/dL (8.5-10.1)
[2021-11-07 06:07] LABS: ALBUMIN 1.7 g/dl (3.4-5.0); ANION GAP 6 MMOL/L (8-16); BLOOD UREA NITROGEN 40.7 mg/dL (7-18); CO2 28 mmol/L (21-32); GLUCOSE,RANDOM 97 mg/dL (74-106); MAGNESIUM 2.1 mg/dL (1.8-2.4)
[2021-11-07 06:10] LABS: CREATININE 1.2 mg/dL (0.55-1.3); SGOT/AST 50 U/L (15-37); SGPT/ALT 18 U/L (13-61)
[2021-11-07 06:11] LABS: BILIRUBIN,TOTAL 0.4 mg/dL (0.2-1); TOT PROT 6.3 g/dl (6.4-8.2)
[2021-11-07 06:12] LABS: ALK PHOS 125 U/L (45-117)
[2021-11-07] MEDS ORDERED: ASPIRIN 81 MG CHEWABLE TABLETS PO ONE (06:20)
[2021-11-07 06:26] LABS: HEMATOCRIT 23.3 % (35.4-49); HEMOGLOBIN 7.6 GM/dL (11.7-16.9); MCH 31.2 pg (25.7-33.7); MCHC 32.9 g/dl (32.0-35.9); MEAN CELL VOLUME 95.1 fl (80-96); MEAN PLT VOLUME 8.8 fl (7.5-11.1); PLATELET COUNT 57 10^3/uL (134-434); RBC 2.45 M/mm3 (4.00-5.60); RDW 19.4 % (11.9-15.9); WHITE BLOOD COUNT 6.3 K/mm3 (4.0-10.0)
[2021-11-07] MEDS: AMINO ACIDS/PROTEIN HYDROLYS 30 ML LIQUID.PKT PO SCH (08:14)
[2021-11-07 09:11] LABS: ANISOCYTOSIS 1+; MACROCYTOSIS 0; OVALOCYTE 1+; PLATELET ESTIMATE DECREASED; TEAR DROP CELLS 1+; TOXIC GRANULATION 2+
[2021-11-07] MEDS: MUPIROCIN 2% TOPICAL OINTMENT FOR DECOLONIZATION NS SCH ×2 (10:00→21:38)
[2021-11-07] MEDS ORDERED: CARVEDILOL 12.5 MG TABLET (FP) PO SCH (10:05)
[2021-11-07] MEDS ORDERED: PT OWN MED DRAWER 7, Y5N ONE (10:10)
[2021-11-07] MEDS: SPIRONOLACTONE 25 MG TABLET PO SCH (10:11)
[2021-11-07] MEDS: DEXAMETHASONE SOD PHOSPHATE 10 MG/1 ML VIAL IVPUSH SCH (10:11)
[2021-11-07] MEDS: SACUBITRIL/VALSARTAN 49 MG-51 MG TABLET PO SCH ×2 (10:12→21:41)
[2021-11-07] MEDS: CHOLECALCIFEROL (VIT D3) 1,000 UNIT (25 MCG) TABLET PO SCH (10:12)
[2021-11-07] MEDS: ASCORBIC ACID 500 MG TABLET (FP) PO SCH ×2 (10:12→21:37)
[2021-11-07] MEDS: ZINC SULFATE 220 MG CAPSULE (FP) PO SCH (10:12)
[2021-11-07] MEDS: ALLOPURINOL 100 MG TABLET (FP) PO SCH (10:13)
[2021-11-07] MEDS ORDERED: CARVEDILOL 3.125 MG TABLET (FP) PO ONE (12:45)
[2021-11-07] MEDS: CARVEDILOL 3.125 MG TABLET (FP) PO SCH (21:37)
[2021-11-07] MEDS: ATORVASTATIN CA 20 MG TABLET (FP) PO SCH (21:37)
[2021-11-07] MEDS: CHLORHEXIDINE GLUCONATE 4% CLEANSER FOR DECOLONIZATION TP SCH (21:38)
[2021-11-08 07:42] LABS: HEMATOCRIT 32.8 % (35.4-49); MCH 32.1 pg (25.7-33.7); MCHC 33.5 g/dl (32.0-35.9); MEAN CELL VOLUME 95.8 fl (80-96); MEAN PLT VOLUME 9.7 fl (7.5-11.1); PLATELET COUNT 83 10^3/uL (134-434); RBC 3.43 M/mm3 (4.00-5.60); RDW 20.6 % (11.9-15.9); WHITE BLOOD COUNT 8.5 K/mm3 (4.0-10.0)
[2021-11-08 08:02] LABS: CHLORIDE 118 mmol/L (98-107); SODIUM 154 mmol/L (136-145)
[2021-11-08 08:06] LABS: CALCIUM 7.9 mg/dL (8.5-10.1)
[2021-11-08 08:07] LABS: ALBUMIN 1.5 g/dl (3.4-5.0); ANION GAP 12 MMOL/L (8-16); CO2 25 mmol/L (21-32); GLUCOSE,RANDOM 114 mg/dL (74-106); MAGNESIUM 2.2 mg/dL (1.8-2.4)
[2021-11-08 08:10] LABS: CREATININE 1.2 mg/dL (0.55-1.3); PHOSPHOROUS 3.8 mg/dL (2.5-4.9); SGOT/AST 44 U/L (15-37); SGPT/ALT 17 U/L (13-61)
[2021-11-08 08:11] LABS: BILIRUBIN,TOTAL 0.6 mg/dL (0.2-1); TOT PROT 6.1 g/dl (6.4-8.2)
[2021-11-08 08:13] LABS: ALK PHOS 128 U/L (45-117)
[2021-11-08] MEDS: AMINO ACIDS/PROTEIN HYDROLYS 30 ML LIQUID.PKT PO SCH (08:47)
[2021-11-08 09:05] LABS: ANISOCYTOSIS 0; MACROCYTOSIS 0; PLATELET ESTIMATE DECREASED
[2021-11-08] MEDS: CARVEDILOL 3.125 MG TABLET (FP) PO SCH ×2 (09:05→22:45)
[2021-11-08] MEDS: SACUBITRIL/VALSARTAN 49 MG-51 MG TABLET PO SCH ×2 (09:05→22:45)
[2021-11-08] MEDS: SPIRONOLACTONE 25 MG TABLET PO SCH (09:05)
[2021-11-08] MEDS: ZINC SULFATE 220 MG CAPSULE (FP) PO SCH (09:05)
[2021-11-08] MEDS: ALLOPURINOL 100 MG TABLET (FP) PO SCH (09:06)
[2021-11-08] MEDS: CHOLECALCIFEROL (VIT D3) 1,000 UNIT (25 MCG) TABLET PO SCH (09:06)
[2021-11-08] MEDS: ASCORBIC ACID 500 MG TABLET (FP) PO SCH (09:06)
[2021-11-08] MEDS: MUPIROCIN 2% TOPICAL OINTMENT FOR DECOLONIZATION NS SCH ×2 (10:00→22:48)
[2021-11-08] MEDS: DEXAMETHASONE SOD PHOSPHATE 10 MG/1 ML VIAL IVPUSH SCH (10:01)
[2021-11-08] MEDS ORDERED: PT OWN MED DRAWER 7, Y5N ONE (21:10)
[2021-11-08] MEDS: CHLORHEXIDINE GLUCONATE 4% CLEANSER FOR DECOLONIZATION TP SCH (22:48)
[2021-11-08] MEDS: ATORVASTATIN CA 20 MG TABLET (FP) PO SCH (22:49)
[2021-11-09 07:34] LABS: BASO % 0.2 % (0-2.0); HEMATOCRIT 29.7 % (35.4-49); HEMOGLOBIN 10.2 GM/dL (11.7-16.9); LYMPH % 0.8 % (8-40); MCH 32.3 pg (25.7-33.7); MCHC 34.3 g/dl (32.0-35.9); MEAN CELL VOLUME 94.2 fl (80-96); MEAN PLT VOLUME 9.3 fl (7.5-11.1); MONO % 0.9 % (3.8-10.2); NEUT % 98.1 % (42.8-82.8); PLATELET COUNT 91 10^3/uL (134-434); RBC 3.15 M/mm3 (4.00-5.60); RDW 19.6 % (11.9-15.9); WHITE BLOOD COUNT 10.7 K/mm3 (4.0-10.0)
[2021-11-09 07:45] LABS: ALBUMIN 1.4 g/dl (3.4-5.0); BLOOD UREA NITROGEN 65.3 mg/dL (7-18); CALCIUM 7.6 mg/dL (8.5-10.1); MAGNESIUM 2.2 mg/dL (1.8-2.4)
[2021-11-09 07:48] LABS: PHOSPHOROUS 4.6 mg/dL (2.5-4.9)
[2021-11-09 07:49] LABS: CREATININE 1.2 mg/dL (0.55-1.3)
[2021-11-09 07:50] LABS: BILIRUBIN,TOTAL 0.7 mg/dL (0.2-1)
[2021-11-09 11:18] LABS: ANISOCYTOSIS 1+; MACROCYTOSIS 0; PLATELET ESTIMATE DECREASED
[2021-11-09] MEDS: AMINO ACIDS/PROTEIN HYDROLYS 30 ML LIQUID.PKT PO SCH ×2 (12:00→20:26)
[2021-11-09] MEDS: ASCORBIC ACID 500 MG TABLET (FP) PO SCH ×3 (12:00→21:05)
[2021-11-09] MEDS: CHOLECALCIFEROL (VIT D3) 1,000 UNIT (25 MCG) TABLET PO SCH (12:01)
[2021-11-09] MEDS: ALLOPURINOL 100 MG TABLET (FP) PO SCH (12:01)
[2021-11-09] MEDS: CARVEDILOL 3.125 MG TABLET (FP) PO SCH ×2 (12:01→21:05)
[2021-11-09] MEDS: SACUBITRIL/VALSARTAN 49 MG-51 MG TABLET PO SCH ×2 (12:01→21:05)
[2021-11-09] MEDS: ZINC SULFATE 220 MG CAPSULE (FP) PO SCH (12:01)
[2021-11-09] MEDS: SPIRONOLACTONE 25 MG TABLET PO SCH (12:01)
[2021-11-09] MEDS: DEXAMETHASONE SOD PHOSPHATE 10 MG/1 ML VIAL IVPUSH SCH (12:20)
[2021-11-09] MEDS: MUPIROCIN 2% TOPICAL OINTMENT FOR DECOLONIZATION NS SCH ×2 (12:25→21:05)
[2021-11-09] MEDS ORDERED: METOPROLOL TARTRATE 5 MG/5 ML VIAL IVPUSH ONE ×2 (17:01→17:36)
[2021-11-09] MEDS ORDERED: AMIODARONE HCL INJECTION 150 MG in DEXTROSE 5%-WATER - 100 ML IVPB ONE (19:26)
[2021-11-09] MEDS ORDERED: AMIODARONE HCL INJECTION 450 MG in DEXTROSE 5%-WATER - 241 ML IVPB ONE (19:26)
[2021-11-09] MEDS ORDERED: AMIODARONE HCL INJECTION 450 MG in DEXTROSE 5%-WATER - 241 ML IVPB SCH (19:30)
[2021-11-09] MEDS ORDERED: AMIODARONE IN DEXTROSE,ISO-OSM 150 MG/100 ML BAG IVPB ONE (19:45)
[2021-11-09] MEDS ORDERED: AMIODARONE IN DEXTROSE,ISO-OSM 360 MG/200 ML BAG IVPB ONE (20:00)
[2021-11-09] MEDS: ATORVASTATIN CA 20 MG TABLET (FP) PO SCH (21:05)
[2021-11-09] MEDS: CHLORHEXIDINE GLUCONATE 4% CLEANSER FOR DECOLONIZATION TP SCH (21:05)
[2021-11-10] MEDS ORDERED: AMIODARONE IN DEXTROSE,ISO-OSM 360 MG/200 ML BAG IVPB SCH (02:00)
[2021-11-10 07:24] LABS: HEMATOCRIT 31.8 % (35.4-49); HEMOGLOBIN 10.3 GM/dL (11.7-16.9); MCHC 32.5 g/dl (32.0-35.9); MEAN CELL VOLUME 95.5 fl (80-96); MEAN PLT VOLUME 9.6 fl (7.5-11.1); PLATELET COUNT 117 10^3/uL (134-434); RBC 3.33 M/mm3 (4.00-5.60); RDW 19.9 % (11.9-15.9); WHITE BLOOD COUNT 16.2 K/mm3 (4.0-10.0)
[2021-11-10 07:39] LABS: CHLORIDE 92 mmol/L (98-107); SODIUM 130 mmol/L (136-145)
[2021-11-10 07:45] LABS: ALBUMIN 1.3 g/dl (3.4-5.0); ANION GAP 17 MMOL/L (8-16); BLOOD UREA NITROGEN 81.1 mg/dL (7-18); CO2 20 mmol/L (21-32)
[2021-11-10 07:46] LABS: MAGNESIUM 2.3 mg/dL (1.8-2.4)
[2021-11-10 07:47] LABS: PHOSPHOROUS 4.4 mg/dL (2.5-4.9); SGPT/ALT 13 U/L (13-61)
[2021-11-10 07:48] LABS: SGOT/AST 27 U/L (15-37)
[2021-11-10 07:49] LABS: BILIRUBIN,TOTAL 0.7 mg/dL (0.2-1); TOT PROT 5.5 g/dl (6.4-8.2)
[2021-11-10 07:50] LABS: ALK PHOS 106 U/L (45-117)
[2021-11-10 08:56] LABS: CALCIUM 6.9 mg/dL (8.5-10.1); CREATININE 1.6 mg/dL (0.55-1.3); GLUCOSE,RANDOM 668 mg/dL (74-106)
[2021-11-10] MEDS ORDERED: PT OWN MED DRAWER 7, Y5N ONE (09:03)
[2021-11-10] MEDS: DEXAMETHASONE SOD PHOSPHATE 10 MG/1 ML VIAL IVPUSH SCH (09:42)
[2021-11-10] MEDS: MUPIROCIN 2% TOPICAL OINTMENT FOR DECOLONIZATION NS SCH ×2 (10:00→21:21)
[2021-11-10 11:42] LABS: ANISOCYTOSIS 0; MACROCYTOSIS 0; PLATELET ESTIMATE DECREASED; TOXIC GRANULATION 1+
[2021-11-10] MEDS ORDERED: AMIODARONE IN DEXTROSE,ISO-OSM 360 MG/200 ML BAG ONE (12:49)
[2021-11-10] MEDS ORDERED: SODIUM CHLORIDE 1,000 ML IV SCH (15:45)
[2021-11-10] MEDS: AMINO ACIDS/PROTEIN HYDROLYS 30 ML LIQUID.PKT PO SCH (17:27)
[2021-11-10] MEDS: ZINC SULFATE 220 MG CAPSULE (FP) PO SCH (17:28)
[2021-11-10] MEDS: CARVEDILOL 3.125 MG TABLET (FP) PO SCH ×2 (17:28→21:03)
[2021-11-10] MEDS: ASCORBIC ACID 500 MG TABLET (FP) PO SCH ×2 (17:28→21:03)
[2021-11-10] MEDS: CHOLECALCIFEROL (VIT D3) 1,000 UNIT (25 MCG) TABLET PO SCH (17:28)
[2021-11-10] MEDS: SPIRONOLACTONE 25 MG TABLET PO SCH (17:28)
[2021-11-10] MEDS: SACUBITRIL/VALSARTAN 49 MG-51 MG TABLET PO SCH ×2 (17:28→21:03)
[2021-11-10] MEDS: ALLOPURINOL 100 MG TABLET (FP) PO SCH (17:29)
[2021-11-10] MEDS ORDERED: AMIODARONE HCL INJECTION 450 MG in DEXTROSE 5%-WATER - 241 ML IVPB ONE (18:54)
[2021-11-10] MEDS ORDERED: AMIODARONE IN DEXTROSE,ISO-OSM 360 MG/200 ML BAG IVPB ONE (19:45)
[2021-11-10] MEDS: ATORVASTATIN CA 20 MG TABLET (FP) PO SCH (21:03)
[2021-11-10] MEDS: CHLORHEXIDINE GLUCONATE 4% CLEANSER FOR DECOLONIZATION TP SCH (21:21)
[2021-11-10] MEDS ORDERED: ACETAMINOPHEN 1000 MG/100 ML VIAL IVPB ONE (21:53)
[2021-11-11 07:21] LABS: HEMATOCRIT 31.4 % (35.4-49); HEMOGLOBIN 10.1 GM/dL (11.7-16.9); MCH 31.5 pg (25.7-33.7); MCHC 32.3 g/dl (32.0-35.9); MEAN CELL VOLUME 97.7 fl (80-96); MEAN PLT VOLUME 10.1 fl (7.5-11.1); PLATELET COUNT 107 10^3/uL (134-434); RBC 3.21 M/mm3 (4.00-5.60); RDW 19.9 % (11.9-15.9); WHITE BLOOD COUNT 17.2 K/mm3 (4.0-10.0)
[2021-11-11 07:36] LABS: CHLORIDE 112 mmol/L (98-107); SODIUM 144 mmol/L (136-145)
[2021-11-11] MEDS: AMINO ACIDS/PROTEIN HYDROLYS 30 ML LIQUID.PKT PO SCH (07:38)
[2021-11-11 07:40] LABS: ALBUMIN 1.5 g/dl (3.4-5.0); ANION GAP 9 MMOL/L (8-16); CO2 24 mmol/L (21-32); GLUCOSE,RANDOM 125 mg/dL (74-106); MAGNESIUM 2.9 mg/dL (1.8-2.4)
[2021-11-11 07:43] LABS: CREATININE 2.1 mg/dL (0.55-1.3); PHOSPHOROUS 5.3 mg/dL (2.5-4.9); SGOT/AST 43 U/L (15-37); SGPT/ALT 17 U/L (13-61)
[2021-11-11 07:45] LABS: BILIRUBIN,TOTAL 0.7 mg/dL (0.2-1); TOT PROT 6.1 g/dl (6.4-8.2)
[2021-11-11 07:46] LABS: ALK PHOS 127 U/L (45-117)
[2021-11-11] MEDS ORDERED: ACETAMINOPHEN 1000 MG/100 ML VIAL IVPB PRN (07:59)
[2021-11-11 08:17] LABS: BLOOD UREA NITROGEN 110.2 mg/dL (7-18); CALCIUM 8.1 mg/dL (8.5-10.1)
[2021-11-11] MEDS: CARVEDILOL 3.125 MG TABLET (FP) PO SCH (09:08)
[2021-11-11] MEDS: CHOLECALCIFEROL (VIT D3) 1,000 UNIT (25 MCG) TABLET PO SCH (09:09)
[2021-11-11] MEDS: ZINC SULFATE 220 MG CAPSULE (FP) PO SCH (09:09)
[2021-11-11] MEDS: ALLOPURINOL 100 MG TABLET (FP) PO SCH (09:09)
[2021-11-11] MEDS: ASCORBIC ACID 500 MG TABLET (FP) PO SCH (09:09)
[2021-11-11] MEDS: SACUBITRIL/VALSARTAN 49 MG-51 MG TABLET PO SCH (09:09)
[2021-11-11] MEDS: DEXAMETHASONE SOD PHOSPHATE 10 MG/1 ML VIAL IVPUSH SCH (09:32)
[2021-11-11] MEDS ORDERED: DEXTROSE 50%-WATER - 25 GM/50 ML VIAL IVPUSH ONE (10:17)
[2021-11-11] MEDS ORDERED: AMIODARONE IN DEXTROSE,ISO-OSM 360 MG/200 ML BAG IVPB SCH (10:17)
[2021-11-11] MEDS ORDERED: INSULIN REGULAR HUMAN 100 UNITS/ML *VIAL IVPUSH ONE (10:17)
[2021-11-11] MEDS ORDERED: AMIODARONE IN DEXTROSE 150 MG/100 ML PREMIX BAG IV ONE (10:17)
[2021-11-11] MEDS ORDERED: DEXTROSE 50%-WATER - 25 GM/50 ML VIAL ONE (10:33)
[2021-11-11] MEDS ORDERED: AMIODARONE HCL 150 MG/3 ML VIAL IVPUSH ONE (11:56)
[2021-11-11] MEDS ORDERED: AMIODARONE IN DEXTROSE,ISO-OSM 150 MG/100 ML BAG ONE ×2 (12:07→18:30)
[2021-11-11] MEDS ORDERED: MORPHINE SULFATE/0.9% NACL/PF 100 MG/100 ML BAG ONE (14:22)
[2021-11-11] MEDS ORDERED: morphine SULFATE 4 MG/ML VIAL ONE (14:23)
[2021-11-11] MEDS ORDERED: morphine SULFATE 4 MG/ML VIAL IVPUSH ONE (14:34)
[2021-11-11] MEDS ORDERED: MORPHINE SULFATE/0.9% NACL/PF 100 MG/100 ML BAG IVPB SCH (14:45)
[2021-11-11] MEDS ORDERED: AMIODARONE IN DEXTROSE,ISO-OSM 150 MG/100 ML BAG IVPB ONE (18:15)
[2021-11-11 18:25] VITALS: BP 49/19; PULSE 85; TEMP 98.1
[2021-11-11] MEDS ORDERED: AMIODARONE IN DEXTROSE,ISO-OSM 360 MG/200 ML BAG IVPB ONE ×2 (18:25→18:45)
[2021-11-12] MEDS ORDERED: AMIODARONE IN DEXTROSE,ISO-OSM 360 MG/200 ML BAG IVPB ONE (00:25)
== END 2021-11-11 21:06 | disposition expired | DRG 177 ==
LOC: JER 18:33 → JERBED 19:49 → J8W 10-28 15:29 → JICU 11-06 09:00
PROVIDERS: ADMIT Internal Medicine
PROC: 30233N1 Transfusion of Nonautologous Red Blood Cells into Peripheral Vein, Percutaneous Approach (ICD-10-PCS; 2021-10-26)
PROC: XW033E5 Introduction of Remdesivir Anti-infective into Peripheral Vein, Percutaneous Approach, New Technology Group 5 (ICD-10-PCS; principal; 2021-10-27)
PROC: 3E0333Z Introduction of Anti-inflammatory into Peripheral Vein, Percutaneous Approach (ICD-10-PCS; 2021-10-27)
DX: U07.1 COVID-19 (principal); J12.82 Pneumonia due to coronavirus disease 2019; I50.43 Acute on chronic combined systolic (congestive) and diastolic (congestive) heart failure; I21.A1 Myocardial infarction type 2; J96.01 Acute respiratory failure with hypoxia; G93.41 Metabolic encephalopathy; D61.818 Other pancytopenia; C34.90 Malignant neoplasm of unspecified part of unspecified bronchus or lung; I47.2 Ventricular tachycardia; J81.1 Chronic pulmonary edema; N17.9 Acute kidney failure, unspecified; R04.2 Hemoptysis; I42.0 Dilated cardiomyopathy; I42.4 Endocardial fibroelastosis; I48.92 Unspecified atrial flutter; I13.0 Hypertensive heart and chronic kidney disease with heart failure and stage 1 through stage 4 chronic kidney disease, or unspecified chronic kidney disease; E78.5 Hyperlipidemia, unspecified; I48.91 Unspecified atrial fibrillation; N18.9 Chronic kidney disease, unspecified; I27.20 Pulmonary hypertension, unspecified; I25.119 Atherosclerotic heart disease of native coronary artery with unspecified angina pectoris; N40.0 Benign prostatic hyperplasia without lower urinary tract symptoms; D72.829 Elevated white blood cell count, unspecified; R73.9 Hyperglycemia, unspecified; R63.0 Anorexia; Z68.21 Body mass index [BMI] 21.0-21.9, adult; C44.92 Squamous cell carcinoma of skin, unspecified; C61 Malignant neoplasm of prostate; D69.6 Thrombocytopenia, unspecified; R19.7 Diarrhea, unspecified; D70.9 Neutropenia, unspecified; I11.0 Hypertensive heart disease with heart failure; I46.9 Cardiac arrest, cause unspecified; Z95.810 Presence of automatic (implantable) cardiac defibrillator; Z95.5 Presence of coronary angioplasty implant and graft; Z96.642 Presence of left artificial hip joint
CPT/HCPCS: 36415; 36430; 36600; 71045-TC-FY; 71046-TC-FY; 71250-TC; 80048; 80053; 81003; 82272; 82550; 82728; 82803; 82962; 83615; 83735; 83880; 84100; 84484; 85025; 85027; 85610; 85730; 86140; 86850; 86900; 86901; 86922; 87040; 87070; 87077; 87086; 87205; 87804; 87899; 93005; 93010; 94010; 94660; 94761; 97116-GP; 97161-GP; 99285-25; C9399; C9803; J0131; J0282; J1100; J1447; P9058; U0003; U0005